=== PATIENT | male | born 1940 | race Caucasian/White ===

== ENCOUNTER → 2016-06-29 | Outpatient (CLI) | payer OTHER ==
[~2016-06-29] MED LIST: ACETAMINOPHEN PO; ACETAMINOPHEN500 M4 PO; ALBUTEROL17 GM INH; ALLEGRA PO; ALTOPREV20 MG PO; AMARYL PO; AMARYL1 MG PO; AMAZING BUTT CREAM TOP; AMBIEN PO; AMIODARONE HCL200 MG PO; AMLODIPINE BESYL5 MG PO; ANTARA PO; ASPIRIN PO; ASPIRIN81 M1 PO; ASPIRIN81 M2 PO; ASPIRIN81 MG PO; ATENOLOL PO; AVAPRO PO; AZOPT5 ML OS; BAYER ASPIRIN325 M1 PO; CLARITIN10 M2 PO; CLOPIDOGREL75 MG PO; COMBIGAN EYE DRO5 ML OU; COUMADIN PO; CRESTOR PO; DEMADEX10 MG PO; EDARBI80 MG PO; FINASTERIDE5 MG PO; FLEXERIL PO; FLOMAX0.4 M1 PO; FLOMAX0.4 MG PO; FOLIC ACID PO; FOLIC ACID1 MG PO; FOLIC ACID800 MCG PO; FUROSEMIDE40 MG PO; GLIMEPIRIDE1 M1 PO; GLIMEPIRIDE1 MG PO; HYDRALAZINE HCL50 MG PO; HYDROCODON-ACE1 EAC7 PO; HYDROCODON-ACE1 EAC9 PO; HYDROCODONE/APA1 T16 PO; HYZAAR 100-25 T1 TAB PO; IMDUR-ER60 M1 PO; ISORDIL PO; ISOSORBIDE DINI10 MG PO; LANSOPRAZOLE30 MG; LASIX PO; LATANOPROST2.5 ML OU; LESCOL XL80 MG PO; LEVAQUIN PO; LEVAQUIN750 MG PO; LIPITOR PO; LOPID600 MG PO; LOPRESSOR PO; LORTAB 7.5-3251 EACH PO; LOVASTATIN20 M1 PO; LOW DOSE ASPIRI81 M1 PO; LUMIGAN2.5 ML OU; METOPROLOL TAR100 MG PO; METOPROLOL TAR25 MG PO; MUCINEX DM ER1 EACH PO; NEPHROCAPS1 CAP; NITROGLYGERIN0.4 MG SL; NITROGYLCERIN SUBLINGUAL; NITROSTAT0.4 MG PO; NITROSTAT0.4 MG SL; NORVASC PO; NORVASC10 MG PO; ONGLYZA5 MG PO; PANTOPRAZOLE SO40 MG PO; PATIENT'S PHARMACY; PLAVIX PO; PROCRIT2000 U/ML; PROTONIX PO; SERTRALINE HCL50 M1 PO; SERTRALINE HCL50 MG PO; SINGULAIR PO; SUCRALFATE1 G/10 M1 PO; SYMBICORT INH; TIMOPTIC 0.5% OP5 M1 OU; TOPROL XL100 MG PO; TRAMADOL HCL50 M1 PO; TRAVOPROST OU; TRIGLIDE160 M1 PO; TRUSOPT5 ML OS; TYLENOL #2 PO; VITAMIN B-1000 MCG/1 IJ; VITAMIN B-1000 MCG/1 INJ; VITAMIN D1000 UNIT PO; ZOLOFT PO; ZOLOFT50 MG PO
--- NOTE | ~2016-06-29 | CT57 ---
[facility] A Service of [facility] & [facility] RADIOLOGY TEXT RESULTS PATIENT: NASH ALMEIDA LOCATION: [facility] : 38 UNIT #: [id number] AGE: [address]: Tricia Jacinto MD SEX: M ORDER DR: [id number] [facility] [address] [place], [place] [address] [id number] O MR#: [id number] Acc #: [id number] NAME: NASH ALMEIDA. : 1940 SEX: M STUDY DATE/TIME: 06/29/2016 9:43 UNIT: [facility] ROOM: STUDY DESCRIPTION: CT Chest Wo Cont Attending Physician: Tricia Jacinto M.D. Ordering Physician: Tricia Jacinto M.D. Primary Care Physician: Gina Townsend M.D. MEDICAL IMAGING REPORT This report is preliminary unless electronic signature is present EXAM CT chest without contrast 06/29/2016 INDICATIONS Malignant neoplasm of the bronchus. Lung cancer. Left lower lobe malignancy. Restaging. Observation for metastatic disease. COMPARISON PET/CT dated 01/28/[address] chest dated 01/21/2016. TECHNIQUE This CT exam was performed with one or more of the following radiation dose reduction techniques: automatic exposure control, adjustment of mA and/or kV according to patient size, and iterative reconstruction. FINDINGS The pleural nodularity in the right hemithorax has significantly improved. An index area of pleural thickening along the medial right hemithorax measures 2.4 x 1.2 cm compared to 4.9 x 2.6 cm. A pleural nodule previously measuring 1.7 x 1.1 cm on the posterior right hemithorax is no longer visualized. Bilateral pleural effusions have resolved. Patient is status post left lower lobectomy. Central airways are patent. No pathologically enlarged mediastinal or hilar lymph nodes. No pericardial effusion. Limited images of the upper abdomen were obtained. No new findings. There is minimal thickening of the right adrenal gland, however no discrete nodules. There are some benign cysts in the kidneys. IMPRESSION [facility] A Service of [facility] & [facility] RADIOLOGY TEXT RESULTS PATIENT: NASH ALMEIDA [id number] UNIT #: [id number] AGE: [address]: Tricia Jacinto MD SEX: M ORDER DR: 1. Partial response to therapy. Diffuse pleural thickening along the right hemithorax has significantly improved since the prior study. 2. Resolved bilateral pleural effusions. 3. No evidence disease progression. 4. Postsurgical change of left lower lobectomy. Dictated by... Richard Dougherty M.D. THIS IS AN ELECTRONICALLY VERIFIED REPORT Richard Dougherty M.D. at 06/30/2016 8:19 AM Judie TD: 06/29/2016 17:50 JOB #: [id number] MEDICAL IMAGING REPORT COPY
== END | disposition home or self-care (01) ==
LOC: CCAT 09:22
DX: C34.90 Malignant neoplasm of unspecified part of unspecified bronchus or lung (principal); D63.1 Anemia in chronic kidney disease; C79.52 Secondary malignant neoplasm of bone marrow; D50.9 Iron deficiency anemia, unspecified; Z87.19 Personal history of other diseases of the digestive system; Z98.890 Other specified postprocedural states
CPT/HCPCS: 71250

== ENCOUNTER → 2016-08-06 | Outpatient (CLI) | payer OTHER ==
--- NOTE | ~2016-08-06 | MR113 ---
[facility] A Service of [facility] & [facility] RADIOLOGY TEXT RESULTS PATIENT: NASH ALMEIDA LOCATION: [facility] : 38 UNIT #: [id number] AGE: [address]: Steevn Reich MD SEX: M ORDER DR: [id number] [place] [id number] O MR#: [id number] Acc #: [id number] NAME: NASH ALMEIDA : 1940 SEX: M STUDY DATE/TIME: 08/06/2016 10:21 UNIT: [facility] ROOM: STUDY DESCRIPTION: MR Lumbar Wo Contrast Attending Physician: Steven Reich M.D. Referring Physician: Steven Reich M.D. Ordering Physician: Steven Reich M.D. Primary Care Physician: Gina Townsend M.D. MRI CENTER REPORT This report is preliminary unless electronic signature is present. EXAM MRI of the lumbar spine without contrast. HISTORY Lung cancer treated 2 years ago with radiation therapy; now has complaint of increasing low back pain, left lower extremity radiculopathy, tingling and numbness of the left foot for a year. Patient had lumbar spine surgery either June 2015 or June 2016. The history is not clear. Please correlate further with actual clinical history. In either case lack of contrast media limits evaluation of postop spine. Contrast not given per requesting physician. There is a previous MRI from 10/18/2015. There is mild degenerative retrolisthesis of L5 on S1 measuring about 6 mm. This is related to loss of disc height at L5-S1 which is fairly severe, and the disc is desiccated. There is associated mixed marrow endplate degenerative changes. Otherwise, moderate loss of disc height, disc desiccation, and mixed marrow endplate degenerative change at the L4-L5 level. Multiple Schmorl nodes. Conus medullaris terminates at L1 and is normal. At L1-2, mild concentric disc bulge. Mild facet degenerative change, mild mass effect on the thecal sac. No foraminal impingement. At L2-3, mild bilateral facet degenerative change, broad-based posterior disc bulge. Mild effacement of the thecal sac. Mild mass effect on the right greater than left lateral recess. No significant foraminal impingement. At L3-4, mild ligamentum flavum thickening on the right with some mild bilateral facet degenerative change, mild broad-based posterior disc bulge. No canal stenosis. Mild bilateral inferior foraminal narrowing. At L4-5, mild to moderate right greater than left sided facet degenerative STS. [facility] A Service of [facility] RADIOLOGY TEXT RESULTS PATIENT: NASH ALMEIDA LOCATION: [facility] : 38 UNIT #: [id number] AGE: [address]: Steven Reich MD SEX: M ORDER DR: change mild concentric disc bulge, mild to moderate foraminal narrowing bilaterally. Mild canal stenosis and mass effect on right greater than left lateral recess. At L5-S1, I believe there are prior posterior surgery changes. There is bilateral facet degenerative change, moderate. There is a broad-based posterior desiccated disc protrusion and endplate spondylosis. There is some effacement of the anterior thecal sac, but no significant central canal stenosis. There is bilateral foraminal narrowing, which is rammosmh-ft-dwlits, related to disc osteophyte retrolisthesis of L5 on S1 and loss of disc height. Partly redemonstrated are renal cysts on the left. No evidence for arachnoiditis on this noncontrast study. IMPRESSION 1. Postoperative changes posteriorly at L5-S1. No recurrent extrusion or canal stenosis, but there is moderate to severe foraminal narrowing bilaterally. 2. Mild canal stenosis at the L4-5 level with mass effect on right greater than left lateral recess. Multilevel degenerative changes are detailed above. Please refer to the comment section. Dictated by... Claritza Kohler M.D. THIS IS AN ELECTRONICALLY VERIFIED REPORT Claritza Kohler M.D. at 08/07/2016 8:06 AM ANTHONY/avery TD: 08/06/2016 18:32 JOB #: [id number] MRI CENTER REPORT Page 1 of 1
== END | disposition home or self-care (01) ==
LOC: SMRI 09:23
DX: M48.06 Spinal stenosis, lumbar region (principal); M43.16 Spondylolisthesis, lumbar region; M51.86 Other intervertebral disc disorders, lumbar region; Z98.1 Arthrodesis status
CPT/HCPCS: 72148

== ENCOUNTER → 2016-08-10 | Outpatient (CLI) | payer OTHER ==
--- NOTE | ~2016-08-10 | US136 ---
[facility] A Service of [facility] RADIOLOGY TEXT RESULTS PATIENT: NASH ALMEIDA LOCATION: [facility] : 38 UNIT #: [id number] AGE: [address]: Andrea Yeboah MD SEX: M ORDER DR: [id number] [place] [id number] [facility]. [place], [place] [address] [id number] O MR#: [id number] Acc #: [id number] NAME: NASH ALMEIDA. : 1940 SEX: M STUDY DATE/TIME: 08/10/2016 10:33 UNIT: [facility] ROOM: STUDY DESCRIPTION: U/L [facility] Bil Attending Physician: Andrea Yeboah M.D. Referring Physician: Andrea Yeboah M.D. Ordering Physician: Andrea Yeboah M.D. Primary Care Physician: Gina Townsend M.D. MEDICAL IMAGING REPORT This report is preliminary unless electronic signature is present EXAM Ankle brachial indices HISTORY Peripheral vascular disease FINDINGS Pulse volume recordings are moderately abnormal at the ankle levels bilaterally. Doppler velocity wave forms are monophasic at the dorsalis pedis and posterior tibial arteries bilaterally. Right brachial pressure is 238 and left brachial pressure is 229 mmHg. On the right side dorsalis pedis is 175, posterior tibial 166, great toe 91 for a right ankle brachial index of 0.74. On the left side, posterior tibial and dorsalis pedis are noncompressible and hence, ankle brachial indices could not be performed. Great toe pressure is 128 mmHg for a toe brachial index of 0.54. IMPRESSION 1. Moderate peripheral vascular disease is seen in the right lower extremity with ankle brachial index of 0.74. 2. Non compressibility is seen at the left lower extremity indicating calcification and hence ankle brachial indices could not be calculated. Toe pressures are adequate. Wave forms indicate probably moderate peripheral vascular disease on the left side also. Clinical correlation is recommended. Dictated by... [facility] A Service of [facility] RADIOLOGY TEXT RESULTS PATIENT: NASH ALMEIDA LOCATION: [facility] : 38 UNIT #: [id number] AGE: [address]: Andrea Yeboah MD SEX: M ORDER DR: Andrea Yeboah M.D. THIS IS AN ELECTRONICALLY VERIFIED REPORT Andrea Yeboah M.D. at 08/18/2016 9:45 AM SA/to TD: 08/10/2016 17:08 JOB #: [id number] MEDICAL IMAGING REPORT Page 1 of 1 COPY
--- NOTE | ~2016-08-10 | US83 ---
[facility] A Service of [facility] & [facility] RADIOLOGY TEXT RESULTS PATIENT: NASH ALMEIDA LOCATION: [facility] : 38 UNIT #: [id number] AGE: [address]: Andrea Yeboah MD SEX: M ORDER DR: [id number] [facility] [address] [place], [place] [address] [id number] O MR#: [id number] Acc #: [id number] NAME: NASH ALMEIDA. : 1940 SEX: M STUDY DATE/TIME: 08/10/2016 11:12 UNIT: [facility] ROOM: STUDY DESCRIPTION: [employer] Attending Physician: Andrea Yeboah M.D. Referring Physician: Andrea Yeboah M.D. Ordering Physician: Andrea Yeboah M.D. Primary Care Physician: Gina Townsend M.D. MEDICAL IMAGING REPORT This report is preliminary unless electronic signature is present EXAM Right lower extremity arterial duplex. HISTORY Peripheral vascular disease. FINDINGS Duplex imaging of the right lower extremity arteries was performed. The right common femoral artery is patent with a velocity of 137 cm/sec and triphasic waveforms. There is increased velocity seen in the proximal superficial femoral artery at the origin with a velocity of 523 cm/sec. The profunda femora is patient. Velocity in the SFA is 84, distally it is 86, and popliteal artery has mild plaque with a velocity of 61 cm/sec. Runoff is seen in the posterior tibial artery at 38 cm/sec at the tibioperoneal trunk. The rest of the vessels to not appear to have been examined. IMPRESSION High-grade stenosis is seen in the proximal right superficial femoral artery. The rest of the SFA and popliteal artery is patent. Runoff is seen in the posterior tibial artery and the rest of the vessels have not been examined. Dictated by... Andrea Yeboah M.D. THIS IS AN ELECTRONICALLY VERIFIED REPORT Andrea Yeboah M.D. at 08/18/2016 9:45 AM /tmw [facility] A Service of [facility] & [facility] RADIOLOGY TEXT RESULTS PATIENT: NASH ALMEIDA LOCATION: [facility] : 38 UNIT #: [id number] AGE: [address]: Andrea Yeboah MD SEX: M ORDER DR: TD: 08/10/2016 17:08 JOB #: [id number] MEDICAL IMAGING REPORT Page 1 of 1 COPY
--- NOTE | ~2016-08-10 | US37 ---
[facility] A Service of [facility] RADIOLOGY TEXT RESULTS PATIENT: NASH ALMEIDA LOCATION: [facility] : 38 UNIT #: [id number] AGE: [address]: Andrea Yeboah MD SEX: M ORDER DR: [id number] [facility] [address] [place], [place] [address] [id number] O MR#: [id number] Acc #: [id number] NAME: NASH ALMEIDA. : 1940 SEX: M STUDY DATE/TIME: 08/10/2016 10:45 UNIT: [facility] ROOM: STUDY DESCRIPTION: US Carotid W/Doppler Bilateral Attending Physician: Andrea Yeboah M.D. Referring Physician: Andrea Yeboah M.D. Ordering Physician: Andrea Yeboah M.D. Primary Care Physician: Gina Townsend M.D. MEDICAL IMAGING REPORT This report is preliminary unless electronic signature is present EXAM Bilateral carotid duplex HISTORY Carotid stenosis FINDINGS Duplex imaging in the carotid arteries was performed. The right common carotid artery is patent. Plaque is seen in the right internal carotid artery origin and above, which is heterogeneous. Velocity in the right common carotid is 98, internal is 93 no active disease external is 133 cm/second. Right ICA:CCA ratio is 0.9. On the left side, common carotid artery is patent. Heterogeneous plaque is seen in the left internal carotid artery and external carotid arteries. Velocities are increased on the left side. Velocity in the left common carotid is 94; internal is 168 proximally, 193 mid portion and 147 distally. Left ICA:CCA ratio is 2.0. External carotid velocity is 308 cm/second. IMPRESSION 1. Plaque with less than 50% stenosis is seen in the right internal carotid artery. 2. Plaque with 50-69% stenosis is seen in the left internal carotid artery. 3. Significant stenosis is seen in the left external carotid artery. 4. Antegrade flow is seen in the right and left vertebral arteries. Dictated by... Andrea Yeboah M.D. [facility] A Service of [facility] & [facility] RADIOLOGY TEXT RESULTS PATIENT: NASH ALMEIDA LOCATION: [facility] : 38 UNIT #: [id number] AGE: [address]: Andrea Yeboah MD SEX: M ORDER DR: THIS IS AN ELECTRONICALLY VERIFIED REPORT Andrea Yeboah M.D. at 08/18/2016 9:45 AM SA/lenard TD: 08/10/2016 17:26 JOB #: [id number] MEDICAL IMAGING REPORT Page 1 of 1 COPY
== END | disposition home or self-care (01) ==
LOC: CNIV 10:17
DX: C79.52 Secondary malignant neoplasm of bone marrow (principal); C34.90 Malignant neoplasm of unspecified part of unspecified bronchus or lung; I65.23 Occlusion and stenosis of bilateral carotid arteries; I70.208 Unspecified atherosclerosis of native arteries of extremities, other extremity; I73.9 Peripheral vascular disease, unspecified; D50.9 Iron deficiency anemia, unspecified; Z87.19 Personal history of other diseases of the digestive system
CPT/HCPCS: 93880; 93922; 93926

== ENCOUNTER 2016-09-27 09:59 | Emergency (ER) | payer OTHER ==
--- NOTE | ~2016-09-27 | CR72 ---
[facility] A Service of [facility] RADIOLOGY TEXT RESULTS PATIENT: NASH ALMEIDA LOCATION: [facility] : 38 UNIT #: [id number] AGE: [address]: Shivam Haley MD SEX: M ORDER DR: [id number] [facility] [address] [place], [place] [address] [id number] E MR#: [id number] Acc #: [id number] NAME: NASH ALMEIDA. : 1940 SEX: M STUDY DATE/TIME: 09/27/2016 10:52 UNIT: [facility] ROOM: STUDY DESCRIPTION: CR Chest Single View Portable Attending Physician: Shivam Haley M.D. Ordering Physician: Shivam Haley M.D. Primary Care Physician: Gina Townsend M.D. MEDICAL IMAGING REPORT This report is preliminary unless electronic signature is present EXAM Portable chest, 09/27 INDICATIONS Shortness of air today. COMPARISON 01/22/16 FINDINGS A portable view of the chest was obtained. Heart size is slightly enlarged. The vascularity is normal. Hazy appearance to the left cardiac border is unchanged from the previous study. It is difficult to see the left hemidiaphragm. IMPRESSION 1. There is no definite infiltrate visible. The left hemidiaphragm is somewhat difficult to visualize on this portable chest x-ray. The heart is mildly enlarged. Dictated by... Stanley Suarez M.D. THIS IS AN ELECTRONICALLY VERIFIED REPORT Stanley Suarez M.D. at 09/28/2016 7:27 AM FEL/psc TD: 09/27/2016 18:37 JOB #: [id number] MEDICAL IMAGING REPORT [facility] A Service of [facility] RADIOLOGY TEXT RESULTS PATIENT: NASH ALMEIDA LOCATION: [facility] : 38 UNIT #: [id number] AGE: [address]: Shivam Haley MD SEX: M ORDER DR: Page 1 of 1 COPY
--- NOTE | ~2016-09-27 | EKG ---
PATIENT: NASH ALMEIDA UNIT #: [id number] Ventricular Rate: 55 BPM Atrial Rate: 55 BPM P-R Interval: 222 ms QRS Duration: 92 ms Q-T Interval: 446 ms QTC Calculation(Bezet): 426 ms P Cisco: 41 degrees Calculated R Cisco: 30 degrees Calculated T Cisco: 175 degrees Diagnosis Line: Sinus bradycardia with 1st degree A-V block Diagnosis Line: Poor R wave progression questionable lead position Diagnosis Line: or body habitus Diagnosis Line: ST and T wave abnormality, consider inferolateral Diagnosis Line: ischemia Diagnosis Line: Abnormal ECG Diagnosis Line: When compared with ECG of 22-JAN-2016 05:32, Diagnosis Line: T wave inversion now evident in Inferior leads Diagnosis Line: Confirmed by KHAI HERNANDEZ MD ([id number]) on Diagnosis Line: 09/27/2016 10:19:53 PM INTERPRETING MD: DWIGHT
[~2016-09-27 09:59] MED LIST changes: -ALBUTEROL17 GM INH; -ALTOPREV20 MG PO; -AMAZING BUTT CREAM TOP; -AMIODARONE HCL200 MG PO; -AVAPRO PO; -EDARBI80 MG PO; -FOLIC ACID PO; -HYDRALAZINE HCL50 MG PO; -HYDROCODON-ACE1 EAC7 PO; -IMDUR-ER60 M1 PO; -LATANOPROST2.5 ML OU; -LEVAQUIN750 MG PO; -LORTAB 7.5-3251 EACH PO; -LOW DOSE ASPIRI81 M1 PO; -NITROSTAT0.4 MG PO; -NORVASC10 MG PO; -PATIENT'S PHARMACY; -SERTRALINE HCL50 MG PO; -SYMBICORT INH; -TIMOPTIC 0.5% OP5 M1 OU; -TRIGLIDE160 M1 PO; -VITAMIN D1000 UNIT PO
[2016-09-27 10:55] LABS: BASOPHIL# 0.1 X10e3 (0-0.3); BASOPHIL% 0.7 % (0-2.5); EOSINOPHIL# 0.2 X10e3 (0-0.7); HEMOGLOBIN 10.5 gm/dL (13.0-16.0); LYMPHOCYTE# 0.6 X10e3 (1.0-3.5); LYMPHOCYTE% 6.1 % (17.0-45.0); MEAN CELL VOLUME 78.5 FL (83-96); MEAN CORPUSCULAR HEMOGLOBIN 25.8 PG (28-34); MEAN CORPUSCULAR HGB CONC 32.9 g/dL (30-36); MEAN PLATELET VOLUME 9.1 FL (6.5-11.5); MONOCYTE# 0.7 X10e3 (0-1.0); MONOCYTE% 7.1 % (3.0-12.0); NEUTROPHIL# 8.5 X10e3 (1.5-7.1); NEUTROPHIL% 84.1 % (40-75); PLATELET COUNT 204 X10e3 (140-420); RED BLOOD COUNT 4.08 X10e (3.90-5.60); RED CELL DISTRIBUTION WIDTH 17.9 % (11.0-15.5); WHITE BLOOD COUNT 10.1 X10e3 (4.0-10.5)
[2016-09-27 10:56] LABS: DIFF IND NO
[2016-09-27 10:58] LABS: POC - CKMB 1.1 ng/mL (0.0-7.9); POC - TROPONIN <0.05 ng/mL (<=0.05)
[2016-09-27 11:14] LABS: ALBUMIN SERUM 3.2 g/dL (3.5-5.0); BILIRUBIN, DIRECT 0.1 mg/dL (0.0-0.2); BILIRUBIN,INDIRECT 0.7 mg/dL (0.0-0.9); BILIRUBIN,TOTAL 0.8 mg/dL (0.2-2.0); BUN/CREATININE RATIO 13.68; CALCIUM SERUM 8.8 mg/dL (8.4-10.2); CREATININE SERUM 1.9 mg/dL (0.6-1.4); GLOM FILT RATE Estimated 33.3 mL/min (>60); POTASSIUM 4.4 mmol/L (3.5-5.1); PROTEIN TOTAL SERUM 6.7 g/dL (6.0-8.3)
[2016-09-27] MEDS ORDERED: LORTAB 7.5-3251 EACH PO (11:16)
[2016-09-27] MEDS ORDERED: LATANOPROST2.5 ML OU (11:18)
[2016-09-27] MEDS ORDERED: EDARBI80 MG PO (11:19)
[2016-09-27] MEDS ORDERED: FUROSEMIDE40 MG PO (11:20)
[2016-09-27] MEDS ORDERED: FOLIC ACID PO (11:20)
[2016-09-27] MEDS ORDERED: NORVASC10 MG PO (11:21)
[2016-09-27] MEDS ORDERED: METOPROLOL TAR25 MG PO (11:21)
[2016-09-27] MEDS ORDERED: SERTRALINE HCL50 MG PO (11:22)
[2016-09-27] MEDS ORDERED: AMARYL1 MG PO (11:22)
[2016-09-27] MEDS ORDERED: LOVASTATIN20 M1 PO (11:22)
[2016-09-27] MEDS ORDERED: LOW DOSE ASPIRI81 M1 PO (11:22)
[2016-09-27] MEDS ORDERED: CLOPIDOGREL75 MG PO (11:23)
[2016-09-27] MEDS ORDERED: ONGLYZA5 MG PO (11:23)
[2016-09-27] MEDS ORDERED: PROTONIX PO (11:23)
== END 2016-09-27 11:52 | disposition home or self-care (01) ==
LOC: CED 09:59
PROVIDERS: Emergency Medicine
DX: I13.0 Hypertensive heart and chronic kidney disease with heart failure and stage 1 through stage 4 chronic kidney disease, or unspecified chronic kidney disease (principal); I50.9 Heart failure, unspecified; N18.9 Chronic kidney disease, unspecified; E11.22 Type 2 diabetes mellitus with diabetic chronic kidney disease; E78.5 Hyperlipidemia, unspecified; K21.9 Gastro-esophageal reflux disease without esophagitis; Z90.49 Acquired absence of other specified parts of digestive tract; Z95.1 Presence of aortocoronary bypass graft; Z88.5 Allergy status to narcotic agent
CPT/HCPCS: 36415; 71010; 80048; 80076; 82553; 83880; 84484; 85025; 93005; 96374; 99284; J1940

== ENCOUNTER 2016-10-05 12:56 | Inpatient (IN) | payer OTHER ==
--- NOTE | ~2016-10-05 | CO ---
Unit #: [id number] #: [id number] Patient: NASH MORATAYA [id number] [address] [place], [place] [address] [id number] MR#: [id number] NAME: NASH MORATAYA ROOM: 471 Age: 75 Sex: M Admission Date: 10/05/2016 : 1940 Attending Physician: Kalpana Boone M.D. Primary Care Physician: Gina Townsend M.D. CONSULTATION REPORT CHIEF COMPLAINT Non-small cell lung cancer, right lower lobe lobectomy, recurrent disease, SVRT, no sign of disease, recurrent GI bleed, anemia, CKD, CHF, COPD. HISTORY OF PRESENT ILLNESS Nash Morataya is a 75-year-old male who was diagnosed with lung cancer during 1995. The patient had a right lower lobe lobectomy. Recently, CT of the chest showed 1.6 cm mass close to the esophagus. It increased in size. PET was positive. He received palliative radiation. The patient has had multiple imaging studies and CT of the chest. There is some scar at the azygo-esophagus recess. (1) stable. He has some pleural-based lesions and all stable. No malignancy. The patient has a chronic anemia. He has a CKD. He has been receiving intravenous iron, folic acid, B12 regularly. Last week, his hemoglobin was 11. He is taking aspirin and Plavix. He developed GI bleed for several days. He ignored. Finally, he called me short of breath. He has dyspnea on exertion, decline in performance status, worsening clinical condition. In the hospital, his CBC showed WBC 9.1, hemoglobin 8.1, MCV 80 and platelets 188. His creatinine has increased to 2.0. LFTs are normal. At present, he is short of breath. REVIEW OF SYSTEMS CONSTITUTIONAL: No fever, no chills, no sweats, no weight loss. EYES: No visual symptoms. EARS, NOSE AND THROAT: There is no runny nose or sore throat or difficulty hearing. CARDIOVASCULAR: No chest pain. Shortness of breath. No palpitations. No orthopnea. Dyspnea on exertion. RESPIRATORY: No cough. No wheezing. No hemoptysis. GASTROINTESTINAL: No nausea, vomiting, diarrhea, constipation, hematochezia or melena. GI bleed. GENITOURINARY: No urinary frequency, hesitancy or urgency. No blood in the urine. MUSCULOSKELETAL: No muscle or joint pain. NEUROLOGIC: No headache. No numbness or tingling. No weakness. No seizure. PSYCHIATRIC: No anxiety, depression or mood disturbance. ENDOCRINE: No excessive urination or thirst. DERMATOLOGIC: No rash or change in the skin. Unit #: [id number] #: [id number] Patient: NASH MORATAYA ALLERGIC/IMMUNOLOGIC: No symptoms. HEMATOLOGIC/LYMPHATIC: Denies any symptoms. PAST MEDICAL HISTORY 1. Recurrent non-small cell lung cancer: First lobectomy, now SVRT. No sign of disease. 2. Coronary artery disease. 3. Anemia. 4. Chronic obstructive pulmonary disease. 5. Chronic kidney disease. 6. Congestive heart failure. 7. Diabetes. 8. Hypertension. ALLERGIES Morphine and IV contrast. SOCIAL He used to smoke one pack per day for 20 years, quit many years ago. Denies alcohol abuse. 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 SURGICAL HISTORY 1. CABG. 2. Resection of the left lower lobe mass. 3. Resection of the DVT in the left lower extremity. FAMILY HISTORY Sister - leukemia. Brother - also has leukemia. MEDICATIONS His current medications include: 1. Lipitor. 2. Protonix. 3. Lopressor. 4. Lortab. 5. Zoloft. 6. Lasix. PHYSICAL EXAMINATION VITAL SIGNS: Afebrile. Pulse 57, respirations 16, O2 sats on 4 L 94%, blood pressure 152/54. GENERAL: Patient is comfortable. ECOG is 0. The patient is pleasant. HEENT: Moist mucosa. Pupils equally reactive to light. Extraocular muscles intact. Sclerae anicteric. No obvious bleeding from nasal mucosa or oral mucosa. Scalp normal. Hearing normal. NECK: No JVD. No lymphadenopathy. LYMPHATIC/HEMATOLOGIC: There is no palpable adenopathy in the neck, axilla or inguinal area. CARDIOVASCULAR: S1, S2. Regular rate and rhythm. No S3 or S4. RESPIRATORY: Chest symmetrical, normal. Clear to auscultation bilaterally. No wheezes, no rales, no rhonchi. No dullness to percussion. ABDOMEN/GASTROINTESTINAL: Abdomen is soft, nontender, nondistended. No hepatosplenomegaly. EXTREMITIES: There is no clubbing, no cyanosis, no edema. No varicose veins. NEUROLOGICAL: Patient is alert, awake and oriented x3. Cranial nerves II-XII are intact. Sensory grossly intact. Motor is 4/5 in all four extremities. Gait is normal. Station is normal. Language is normal. Unit #: [id number] #: [id number] Patient: NASH MORATAYA Memory is normal. DTRs +2 in all four extremities. MUSCULOSKELETAL: No joint swelling. No bony tenderness. No muscle tenderness. SKIN: No petechiae, no rash, no ecchymosis. PSYCHIATRIC: No anxiety. No delusions or hallucinations. There is no agitation. Eye contact is normal. Affect is appropriate. There is no flight of ideas. DIAGNOSTIC STUDIES LABORATORY: As mentioned above. IMAGING: Chest x-ray - no change, no mass, no infiltrates. ASSESSMENT AND PLAN This is a 75-year-old male who has the following active issues: 1. Lung cancer: Patient had resection. Patient has recurrent disease, atrial fibrillation, SVRT, at present no sign of disease. In future, I will do CT of the chest without contrast. 2. Anemia: It is complex. He had a chronic kidney disease. He has recurrent GI bleed. His bleeding is worsening. He was admitted. I will give him intravenous iron, folic acid, B12. Tomorrow, I will give him Procrit to stimulate the bone marrow. 3. GI: He is bleeding and going for colonoscopy. 4. Cardiovascular: He has a history of coronary artery bypass graft, he has coronary artery disease. At present, it is stable. 5. Respiration: He has chronic obstructive pulmonary disease and 2 L of oxygen. Stable. 6. Renal: His kidney function has worsened. Dr. Watts to see. Dictated by... Tricia Jacinto M.D. TOMMY/ciera TD: 10/06/2016 12:08 JOB #: [id number] CONSULTATION REPORT Page 1 of 1 X Tricia Jacinto MD CONSULTATION REPORT
--- NOTE | ~2016-10-05 | CR63 ---
[facility] A Service of [facility] & [facility] RADIOLOGY TEXT RESULTS PATIENT: NASH ALMEIDA LOCATION: [place] [address] : 38 UNIT #: [id number] AGE: [address]: Kalpana Boone MD SEX: M ORDER DR: [id number] [facility] [address] [place], [place] [address] [id number] I MR#: [id number] Acc #: [id number] NAME: NASH ALMEIDA : 1940 SEX: M STUDY DATE/TIME: 10/09/2016 11:38 UNIT: [facility] ROOM: [facility] STUDY DESCRIPTION: CR Chest 2 View Attending Physician: Kalpana Boone M.D. Ordering Physician: Kalpana Boone M.D. Primary Care Physician: Gina Townsend M.D. MEDICAL IMAGING REPORT This report is preliminary unless electronic signature is present EXAM Chest 2 views 10/09/2016 1138 hours HISTORY 75-year-old man with shortness of air, anemia. Symptoms for 2 weeks. COMPARISON Chest x-ray 10/07/2016 FINDINGS Upright PA and lateral views of the chest demonstrate median sternotomy change with stable mild cardiomegaly. There is left thoracotomy change with hyperinflated left lung. The left lung appears clear. There is blunting of the left costophrenic sulcus which is unchanged. There is new or increasing patchy density in the right midlung, right lung base, since 10/07/2016. This could represent pneumonia or asymmetric edema. Stable pleural thickening in the lower right hemithorax. IMPRESSION Postop changes with clear left lung and chronic blunting of the left costophrenic sulcus. There is new airspace density at the right lung base since 10/07/2016, concerning for pneumonia. There is chronic pleural thickening laterally in the right hemithorax. No definite right effusion. STAT * RESULT Dictated by... Maggie Nicole M.D. THIS IS AN ELECTRONICALLY VERIFIED REPORT Maggie Nicole M.D. at 10/09/2016 4:01 PM [facility] A Service of [facility] & [facility] RADIOLOGY TEXT RESULTS PATIENT: NASH ALMEIDA LOCATION: [place] [address] : 38 UNIT #: [id number] AGE: [address]: Kalpana Boone MD SEX: M ORDER DR: Almita TD: 10/09/2016 12:24 JOB #: [id number] MEDICAL IMAGING REPORT Page 1 of 1 COPY
--- NOTE | ~2016-10-05 | CR63 ---
[facility] A Service of [facility] & [facility] RADIOLOGY TEXT RESULTS PATIENT: NASH ALMEIDA LOCATION: [place] [address] : 38 UNIT #: [id number] AGE: [address]: Kalpana Boone MD SEX: M ORDER DR: [id number] [place] [address] [facility]. [place], [place] [address] [id number] I MR#: [id number] Acc #: [id number] NAME: NASH ALMEIDA. : 1940 SEX: M STUDY DATE/TIME: 10/10/2016 8:47 UNIT: [facility] ROOM: [facility] STUDY DESCRIPTION: CR Chest 2 View Attending Physician: Kalpana Boone M.D. Ordering Physician: Zach Tavera M.D. Primary Care Physician: Gina Townsend M.D. MEDICAL IMAGING REPORT This report is preliminary unless electronic signature is present EXAM PA and lateral chest INDICATIONS Followup pneumonia. Shortness of breath since October 05. COMPARISON STUDIES Compared with yesterday. FINDINGS Accounting for differences in positioning, there appears to be no significant change in appearance of the chest. The hazy densities in the mid- and lower zones are not significantly changed. Heart size is stable. Prior sternotomy. IMPRESSION No significant change in appearance of the chest. Dictated by... Tony Peterson M.D. THIS IS AN ELECTRONICALLY VERIFIED REPORT Tony Peterson M.D. at 10/11/2016 10:30 AM JUNE/angel TD: 10/10/2016 11:53 JOB #: [id number] MEDICAL IMAGING REPORT Page 1 of 1 COPY
--- NOTE | ~2016-10-05 | OR ---
Unit #: [id number] #: [id number] Patient: NASH ALMEIDA [id number] [address] [place], [place] [address] [id number] I MR#: [id number] NAME: NASH ALMEIDA ROOM: 471 Date of Procedure: 10/06/2016 Admission Date: 10/05/2016 Surgeon: Arturo Cr M.D. : 1940 Attending Physician: Kalpana Boone M.D. Primary Care Physician: Gina Townsend M.D. OPERATIVE REPORT PRIMARY CARE PHYSICIAN Gina Townsend M.D. PREOPERATIVE DIAGNOSES Upper gastrointestinal bleed. The patient presented with history of melena and anemia of acute gastrointestinal blood loss. PROCEDURES PERFORMED Upper gastrointestinal endoscopy and biopsy. POSTOPERATIVE DIAGNOSES 1. The patient had evidence of hiatus hernia. 2. 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 3. Moderate prepyloric antral diffuse gastritis. This was in the form of linear erosions and erythema in the antral area. 4. Rest of examination up to third part of duodenum was normal. A biopsy was obtained from the antrum for CLOtest. RECOMMENDATIONS The patient does not have any potential source of blood loss in the upper GI tract. A colonoscopy is warranted to be scheduled in the next day or two. SEDATION USED Procedural sedation. A total of 2.5 mg of Versed was used throughout the procedure. DESCRIPTION OF PROCEDURE Following detailed explanation of potential risks and complications of an upper endoscopy, namely perforation, bleeding, and complications related to sedation, the patient was brought to GI lab and laid in the left lateral decubitus position. Lubricated tip of the Olympus video upper endoscope was passed through the bite block into the proximal esophagus under direct vision. The entire esophageal mucosa was examined. 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 The scope was then advanced into the gastric cavity. The latter was insufflated. Mucosa of the fundus, body, and antrum examined and moderate diffuse prepyloric antral gastritis noted in the form of diffuse erythema, linear erythematous streaks and erosions. Pylorus was intubated with visualization of the normal duodenal bulb and second and third part of the Unit #: [id number] #: [id number] Patient: NASH ALMEIDA duodenum. Upon withdrawal and retroflexion, incisura, cardia, and greater curve examined and biopsy was obtained from the antrum for CLOtest. The scope was then withdrawn in the distal esophagus. The entire esophageal mucosa was examined all the way up to pharynx. No additional findings noted. The patient tolerated the procedure without any postprocedure complications. Dictated by... Leanne Jarrett/mirella TD: 10/06/2016 22:42 JOB #: [id number] OPERATIVE REPORT Page 1 of 1 X Arturo Cr MD X PROCEDURE OPERATIVE NOTE
--- NOTE | ~2016-10-05 | HP ---
Unit #: [id number] #: [id number] Patient: NASH ALMEIDA [id number] [address] [place], [place] [address] [id number] I MR#: [id number] NAME: NASH ALMEIDA. ROOM: 637[address] Age: 75 Sex: M Admission Date: 10/05/2016 : 1940 Attending Physician: Sarita Harp M.D. Primary Care Physician: Gina Townsend M.D. HISTORY AND PHYSICAL CHIEF COMPLAINT Shortness of breath. HISTORY OF PRESENT ILLNESS The patient is a 75-year-old male with a history of coronary artery disease, diabetes, brought to the emergency room complaining of the shortness of breath. The patient was seen at the PCP's office and was found to have a shortness of breath associated with the drop in hemoglobin. The patient's hemoglobin was 11.1 on last Wednesday and is down to 9.1 at the PCP's office. The patient also complains of the black-colored stools associated with the shortness of breath. The patient is on aspirin and Plavix for coronary artery disease. The patient follows with Dr. Jacinto for non-small cell lung cancer. It was resected in 1994 with recurrent disease in the right lower lobe measuring 1.6 cm, status post , now has a possible recurrent disease. The patient is being admitted for the above reasons. The patient is positive for the fecal occult blood test. PAST MEDICAL HISTORY History of non-small cell lung cancer, coronary artery disease, diabetes, hyperlipidemia, hypertension, history of esophageal ulcer and hiatal hernia. Last EGD was in August of 2015, revealed short segment of Best esophagus and mild gastritis. Chronic iron deficiency anemia, Peripheral vascular disease. PAST SURGICAL HISTORY Status post aorto-fem/pop bypass, cholecystectomy, inguinal hernia repair, glaucoma. ALLERGIES 1. Iodine. 2. Morphine makes the patient mean. HOME MEDICATIONS He is on Lortab, latanoprost, , furosemide, folic acid, Norvasc, metoprolol, Amaryl, low dose aspirin, lovastatin, sertraline, Plavix, Protonix, Onglyza. FAMILY HISTORY Positive for coronary artery disease. SOCIAL HISTORY The patient lives with his spouse, stopped smoking in , does not drink Unit #: [id number] #: [id number] Patient: NASH ALMEIDA alcohol. REVIEW OF SYMPTOMS Fourteen-point review of symptoms performed and only pertinent positive findings as described above, remaining are negative. PHYSICAL EXAMINATION GENERAL APPEARANCE: On examination the patient is lying on a bed not in acute distress. VITAL SIGNS: Temperature is 97.7, pulse 53, respiratory rate 18, blood pressure 175/46, sating 100% at room air. HEENT: Head atraumatic, normocephalic. Pupils equal, round and reacting to light and accommodation. Positive for pallor. No icterus. Dry mucous membrane. NECK: Supple. LUNGS: Decreased air entry. HEART: Regular rate and rhythm. Positive for systolic murmur. ABDOMEN: Soft. Positive bowel sounds. EXTREMITIES: No cyanosis. No clubbing. NEUROLOGIC: Awake, alert and oriented. No gross focal motor deficit. DIAGNOSTIC STUDIES LABORATORY DATA: Troponin less than 0.05. Sodium 141, potassium 4.5, chloride 107, bicarb 26, glucose 140, BUN 33, creatinine 2, BNP 493, INR is 1, WBC 8.4, hemoglobin 8.9, hematocrit 27.6, platelets 211. IMAGING: Chest x-ray shows status post mediastinotomy and CABG. The heart shows stable mild enlargement. The lungs are moderately well inflated. Mild vascular prominence. There is no compelling evidence of acute superimposed infection or inflammatory disease. CARDIOVASCULAR: The EKG shows bradycardia at a rate of 55 beats per minute and a QTc of 430 and there are new T-wave inversions in the lateral leads, V4, V5, V6 compared to the old EKG. ASSESSMENT 1. Gastrointestinal bleed. 2. Anemia. 3. Bradycardia with the T-wave inversions. PLAN Plan to admit the patient as an observation to telemetry. Will have a GI eval with Dr. Cr, continue with the Protonix 40 mg IV and will have the Cardiology for the T-wave inversions in the lateral leads to rule out ischemia with the serial troponins and repeat the labs again in the morning and hold the aspirin and Plavix and further recommendations will follow. Dictated by Leanne Pop TD: 10/05/2016 18:19 Unit #: [id number] #: [id number] Patient: NASH ALMEIDA JOB #: [id number] HISTORY AND PHYSICAL Page 1 of 1 X SARITA HARP MD HISTORY AND PHYSICAL
--- NOTE | ~2016-10-05 | CO ---
Unit #: [id number] #: [id number] Patient: NASH MORATAYA [id number] [address] [place], [place] [address] [id number] I MR#: [id number] NAME: NASH MORATAYA ROOM: 471 Age: 75 Sex: M Admission Date: 10/05/2016 : 1940 Attending Physician: Kalpana Boone M.D. Primary Care Physician: Gina Townsend M.D. CONSULTATION REPORT REASON FOR CONSULTATION Renal insufficiency. Thank you very much for asking me to see this patient in consultation. HISTORY OF PRESENT ILLNESS Mr. Morataya is a 75-year-old gentleman, who presented to the hospital yesterday with complaints of increased shortness of breath. He was apparently noted to have decreasing hemoglobin from his primary physician, was sent here and was noted to have heme-positive stools and hemoglobin down to 8.1 today. He is supposed to undergo an EGD as well today. The patient was noted reviewing his records upon admission to have creatinine of 2.0 today which was also 2.0 yesterday, on 09/27/2016 it was 1.9, on 12/27/2015 his creatinine ranged between 1.6 to 1.8, and in 2014, 1.0 to 1.5. The patient states that he has never been told he had any kidney problems and never seen a university internship. The patient was started on Edarbi approximately 1 month ago by Cardiology, although has now been stopped since he presented here. He has also had some intermittent problems with his blood pressure. Besides the shortness of breath, he denies any chest pain. He denies any nausea or vomiting. He denies any urinary symptoms. PAST MEDICAL HISTORY History of atherosclerotic coronary artery disease, status post coronary artery bypass graft, status post stents; history of diabetes mellitus x20+ years; history of lung CA non-small cell, status post left lobectomy in 1985, he had recurrent disease in his right side small lesion apparently has undergone XRT for this; he has a history of hyperlipidemia; history of hypertension x30 some years; history of esophageal ulcers; history of Best esophagitis; history of gastritis; history of peripheral vascular disease, status post aortofemoral bypass in the past. MEDICATIONS Included at home, Edarbi which has been stopped, Plavix and aspirin which are on hold, he is on Norvasc 10 mg b.i.d., metoprolol 25 mg b.i.d., fish oil, Lipitor, Protonix, Lortab, Onglyza 5 mg a day, Zoloft 50 mg a day, and Lasix 40 mg a day. ALLERGIES He is allergic to iodine and morphine. SOCIAL HISTORY He is . Previous smoker, stopped in 1983. No alcohol. Unit #: [id number] #: [id number] Patient: NASH MORATAYA FAMILY HISTORY Noncontributory. REVIEW OF SYSTEMS He denies any fevers, chills, visual problems, sinus problems, cough, hemoptysis, sore throat, difficulty swallowing. No neck pain or neck stiffness. Denies any chest pain, chest heaviness, palpitations. Does have an increased shortness of breath. He denies any abdominal pain, nausea, vomiting, or diarrhea. Denies urinary symptoms of starting or stopping burning. He denies any significant lower extremity swelling. Denies any recent seizures or strokes. PHYSICAL EXAMINATION GENERAL: He is alert and oriented. VITAL SIGNS: Temperature is 98.5, pulse 55 to 72, blood pressure 123 to 200 over 50s to 60s. HEENT: He is normocephalic and atraumatic. His pupils are equal, round, and reactive to light. Extraocular muscles are intact. Hearing appears normal. Mouth is clear. No erythema. No exudate. NECK: Supple. No JVD. CARDIAC: Regular rate and rhythm without a rub. No S3 or S4. LUNGS: Clear bilaterally. No wheezes, rhonchi, or rales. ABDOMEN: Bowel sounds positive. Nontender. Soft. EXTREMITIES: He has no edema, clubbing, or cyanosis. NEURO: Appears to be intact motor and sensory grossly. : Deferred. DIAGNOSTIC STUDIES LABORATORY RESULTS: Shows sodium 141, potassium 4.6, chloride is 109, bicarb is 25, BUN and creatinine 32 and 2.0, glucose 158, calcium is 8.3, albumin is 2.9. BNP is 493. Previous creatinine is as mentioned above. His hemoglobin is down to 8.1, . IMAGING STUDIES: Chest x-ray shows some questionable mild increased vascular prominence. ASSESSMENT AND PLAN Renal insufficiency. This is a gentleman who probably has some chronic kidney disease, stage 3 and looking back to his creatinines over the last 2 years. Possibly could be related to diabetes versus hypertension versus vascular disease versus other. I do not have any urine on him. I would like to check UA culture and sensitivity. Check a random urine protein and creatinine to see if he has any active significant proteinuria or hematuria. I would like to check renal ultrasound to look the size of his kidneys, rule out obstruction. Check renal artery duplex scan to make sure he does not have bilateral renovascular disease. I agree with holding his Edarbi for now. We will also hold his Lasix for now. I was originally going to give him some fluid, but he is getting blood and I will hold off on giving any IV fluids. Again, we will hold his Lasix, Edarbi, and again workup is underway for his gastrointestinal bleeding. We will check serum protein immunofixation as well. Depending on what the initial evaluation shows depending on what further workup and treatment. Dictated by.Sung Horne M.D. MONISHA/mirella Unit #: [id number] #: [id number] Patient: NASH MORATAYA TD: 10/07/2016 23:36 JOB #: [id number] CONSULTATION REPORT Page 1 of 1 X Cindy Horne MD X CONSULTATION REPORT
--- NOTE | ~2016-10-05 | DS ---
Unit #: [id number] #: [id number] Patient: NASH ALMEIDA [id number] [address] [address] [id number] I MR#: [id number] NAME: NASH ALMEIDA ROOM: 471 Age: 75 Sex: M Admission Date: 10/05/2016 : 1940 Discharge Date: Attending Physician: Kalpana Boone M.D. Primary Care Physician: Gina Townsend M.D. DISCHARGE SUMMARY DISCHARGE DIAGNOSES 1. Gastrointestinal bleed status post esophagogastroduodenoscopy which shows hiatal hernia, Best esophagus, moderate prepyloric antral diffuse gastritis. 2. Anemia secondary to acute blood loss, also with chronic iron deficiency anemia, likely from chronic kidney disease also. 3. Acute kidney injury with chronic kidney disease stage 3. 4. Shortness of breath likely chronic obstructive pulmonary disease with exacerbation. 5. Obstruction sleep apnea, noncompliant with CPAP machine. 6. Hypertension, uncontrolled. 7. History of lung cancer following Dr. Jacinto. 8. Abnormal electrocardiogram. The patient was seen by Cardiology. They recommend followup. No workup needed. 9. Diabetes mellitus type 2, uncontrolled. 10. Hyperlipidemia. 11. Peripheral arterial disease status post aortofemoral-popliteal bypass. 12. Bilateral carotid stenosis. 13. Nonsmall-cell lung cancer status post resection and radiation therapy. 14. History of glaucoma. 15. Peptic ulcer disease. 16. Former smoker. 17. Moderate protein malnutrition. CONSULTATIONS 1. Dr. Yates. 2. Dr. Tavera. 3. Dr. Horne. 4. Dr. Arturo Cr. 5. Dr. Jacinto. PROCEDURE The patient had EGD which shows evidence of hiatal hernia, presence of Best esophagus, moderate prepyloric, antral diffuse gastritis. DIAGNOSTIC STUDIES LABORATORY: Glucose 162, sodium 137, potassium 4.1, creatinine 2.0, albumin 2.5. WBC 9.0, hemoglobin 9.0, platelets 204. IMAGING: Chest x-ray, two views, shows relatively mild interstitial edema. No airspace disease. Ultrasound of the kidney shows no hydronephrosis. Unit #: [id number] #: [id number] Patient: ELLE,NASH T ALLERGIES 1. Iron. 2. Morphine. DISCHARGE MEDICATIONS 1. Zoloft 50 mg p.o. daily. 2. Norvasc 10 mg p.o. daily. 3. Metoprolol 25 mg p.o. b.i.d. 4. Lasix 40 mg p.o. b.i.d. 5. Xalatan eye drops at bedtime. 6. Lovastatin 20 mg daily. 7. Hydralazine 50 mg p.o. b.i.d. 8. Aspirin 81 mg daily. 9. Plavix 75 mg daily. 10. Lortab 7.5 mg q.6 p.r.n. moderate pain. 11. Protonix 40 mg p.o. b.i.d. 12. Amaryl 1 mg p.o. four times daily. 13. Folic acid 400 mcg p.o. daily. 14. Onglyza 5 mg p.o. daily. 15. Albuterol MDI two puffs inhalation four times daily p.r.n. 16. Symbicort 160 mcg inhalation b.i.d. two puffs. HOSPITALIZATION COURSE A 75-year-old admitted because of shortness of breath. Shortness of breath, likely from COPD, mild with exacerbation, started on DuoNeb and Dulera, currently breathing better but want to rule out PE. V/Q scan has been ordered, pending at the time of dictation. If V/Q scan is negative, patient will be discharged home on Albuterol and Symbicort. Anemia secondary to GI bleed, acute blood loss. The patient had an EGD which shows no active bleeding. Continue Protonix. GI bleed. The patient had an EGD. Colonoscopy as an outpatient once stable (1) to follow up. Acute kidney injury with chronic kidney disease stage 3. The patient was seen by Dr. Horne. Diuretics have been given. Initially, the patient received IV fluids. Currently, creatinine is stable. Okay to discharge as per Dr. Horne. History of lung cancer status post radiation and resection. The patient is following Dr. Jacinto. He will follow as an outpatient. Hypertension, uncontrolled, adjust medicine, currently stable. Coronary artery disease with abnormal EKG. The patient was seen by Dr. Estrada. She told to continue with medical management. No intervention needed. The patient will have ambulatory pulse ox checked for home O2 evaluation. V/Q scan is pending at the time of dictation. If negative, the patient will be discharged home. Follow with the family physician in one week's time. Follow with Dr. Tavera in three weeks' time for COPD and obstructive sleep apnea. Follow with Dr. Jacinto in one to two weeks' time for lung cancer. Unit #: [id number] #: [id number] Patient: ELLENASH Santoro Follow with Dr. Arturo Cr for GI bleed for outpatient colonoscopy in two weeks' time. The patient will be discharged with home health. Discussed with . Discharge time taken is 38 minutes. Dictated by... Leanne Keita/mera TD: 10/09/2016 11:17 JOB #: [id number] DISCHARGE SUMMARY Page 1 of 1 X Kalpana Boone MD X DISCHARGE SUMMARY
--- NOTE | ~2016-10-05 | CO ---
Unit #: [id number] #: [id number] Patient: NASH MORATAYA [id number] [address] [place], [place] [address] [id number] MR#: [id number] NAME: NASH MORATAYA ROOM: 471 Age: 75 Sex: M Admission Date: 10/05/2016 : 1940 Attending Physician: Kalpana Boone M.D. Primary Care Physician: Gina Townsend M.D. CONSULTATION REPORT HISTORY OF PRESENT ILLNESS Mr. Morataya is a 75-year-old white male, who was admitted through the emergency room because of increased shortness of breath. He has a history of coronary artery disease, diabetes, COPD, left lower lobe resection, non-small cell lung cancer, chronic iron deficiency anemia. He had a drop in his hemoglobin from 11.1 on last Wednesday to 9.1 in his PCPs office when he was admitted here on the . He had no cough or purulent sputum. No hemoptysis. He had black stools. He has been followed in our office for LORA and COPD. His pulmonary function tests reveal a mild obstruction with an FEV1 of 68% of predicted, normal lung volumes, and moderately decreased DLCO at 57% of predicted. He also has a history of LORA and was titrated on CPAP, but turned it back in because he did not like wearing it after one night. PAST MEDICAL HISTORY Significant for COPD, obstructive sleep apnea, non-small cell lung cancer, status post left lower lobe resection with evidence of recurrence followed by Dr. Jacinto. He had radiation therapy. Had a history of coronary artery disease with diastolic dysfunction, stent placement in 2012, negative ischemic workup in 2016, history of adult-onset diabetes mellitus, hyperlipidemia, hypertension, history of hiatal hernia, peripheral vascular disease, status post aorto fem-pop, history of cholecystectomy, appendectomy, inguinal hernia repair, glaucoma surgery. ALLERGIES Iodine, morphine. HOME MEDICATIONS Listed include Lortab, latanoprost, Edarbi, Lasix, folic acid, Norvasc, metoprolol, Amaryl, low-dose aspirin, lovastatin, sertraline, Plavix, Protonix, Onglyza. SOCIAL HISTORY Lives with . Has children. Reformed smoker since . No alcohol or illicit drugs. FAMILY HISTORY Heart disease. REVIEW OF SYSTEMS Otherwise, 10-point system is negative. Now he does complain of some upper abdominal pain. PHYSICAL EXAMINATION Unit #: [id number] #: [id number] Patient: NASH MORATAYA GENERAL: White male, in no distress. Awake, alert, oriented x3. VITAL SIGNS: Blood pressure is 151/62, pulse 57, respiratory rate 16, afebrile. HEENT: Normocephalic, atraumatic. Pupils are equal, round, and reactive. Sclerae nonicteric. Nasal passages patent. Posterior pharynx crowded. Mucous membranes moist. NECK: Supple. Trachea midline. No cervical or supraclavicular lymphadenopathy. LUNGS: Reveal diminished breath sounds bilaterally. Fairly clear. No wheezes. CARDIAC: Regular rate and rhythm. Could not appreciate murmur, rub, or gallop. ABDOMEN: Nontender. Bowel sounds present. No hepatosplenomegaly. EXTREMITIES: Without clubbing, cyanosis, or edema. NEUROLOGIC: Awake, oriented x3. Cranial nerves grossly intact. Muscle strength symmetric bilaterally. PSYCHIATRIC: Affect calm. SKIN: Warm and dry. IMPRESSION 1. Anemia with fairly negative upper gastrointestinal scope. 2. Dyspnea likely multifactorial secondary to anemia. 3. Diastolic dysfunction. 4. Some underlying chronic obstructive pulmonary disease. Need to rule out any acute event. We will obtain chest x-ray. 5. Obstructive sleep apnea, noncompliant with CPAP, but wishes to resume. 6. Left lower lobe resection of non-small cell lung cancer, status post radiation azygoesophageal recess where there was evidence of recurrence in the last 8 months. 7. History of esophageal ulcer. 8. Hiatal hernia. 9. Best esophagus. 10. Hypertension. 11. Hyperlipidemia. 12. Right upper quadrant pain. RECOMMENDATIONS Agree with transfusion. We will check chest x-ray to rule out any acute event. Consider CT scan of abdomen and pelvis, but we will defer to Dr. Cr. We will initiate short-acting bronchodilator treatment. We will need outpatient sleep study and repeat evaluation and treatment. Make further recommendations pending this. Dictated by... Zach Tavera M.D. JAKY/mirella TD: 10/08/2016 08:10 JOB #: [id number] Unit #: [id number] #: [id number] Patient: NASH MORATAYA CONSULTATION REPORT Page 1 of 1 X Zach Tavera MD CONSULTATION REPORT
--- NOTE | ~2016-10-05 | CR72 ---
[facility]. [facility] A Service of [facility] & [facility] RADIOLOGY TEXT RESULTS PATIENT: NASH ALMEIDA LOCATION: [place] [address] : 38 UNIT #: [id number] AGE: [address]: Kalpana Boone MD SEX: M ORDER DR: [id number] [facility] [address] [facility]. [place], [place] [address] [id number] MR#: [id number] Acc #: [id number] NAME: NASH ALMEIDA. : 1940 SEX: M STUDY DATE/TIME: 10/05/2016 14:08 UNIT: [facility] ROOM: STUDY DESCRIPTION: CR Chest Single View Portable Attending Physician: Jorge Sue D.O. Ordering Physician: Jorge Sue D.O. Primary Care Physician: Gina Townsend M.D. MEDICAL IMAGING REPORT This report is preliminary unless electronic signature is present EXAM Portable chest x-ray 10/05/2016 HISTORY Short of air. History of MRSA, history of DVT. Former smoker. Prior CABG, angioplasty with stents. Weakness, CHF. Prior history of lung cancer. AP radiograph of the chest obtained in lordotic projection. COMPARISON Comparison 09/27/2016 FINDINGS Status post median sternotomy and CABG. The heart shows stable mild enlargement. The lungs are moderately well inflated. Mild vascular prominence. Similar appearance on prior study. This may be a reflection of borderline vascular congestion. Architectural distortion in the left lung. Patient known to be status post prior left lower lobectomy. Chronic postoperative poor definition of the left hemidiaphragm felt secondary to the prior left lower lobectomy. There is no compelling evidence of acute superimposed infectious or inflammatory disease. No pleural effusion or pneumothorax. I believe there is some chronic pleural thickening left hemithorax. No suspicious nodule. Dictated by... Nash Landry M.D. THIS IS AN ELECTRONICALLY VERIFIED REPORT Nash Landry M.D. at 10/06/2016 5:16 PM RACHEL/donald TD: 10/05/2016 17:00 [facility] A Service of [facility] & [facility] RADIOLOGY TEXT RESULTS PATIENT: NASH ALMEIDA LOCATION: [facility]1-01 : 38 UNIT #: [id number] AGE: [address]: Kalpana Boone MD SEX: M ORDER DR: JOB #: [id number] MEDICAL IMAGING REPORT Page 1 of 1 COPY
--- NOTE | ~2016-10-05 | CO ---
Unit #: [id number] #: [id number] Patient: NASH ALMEIDA [id number] [address] [place], [place] [address] [id number] I MR#: [id number] NAME: NASH ALMEIDA ROOM: 471 Age: 75 Sex: M Admission Date: 10/05/2016 : 1940 Attending Physician: Kalpana Boone M.D. Primary Care Physician: Gina Townsend M.D. CONSULTATION REPORT REVISED REPORT REASON FOR CONSULTATION Abnormal EKG. HISTORY OF PRESENT ILLNESS This is a 75-year-old white male, who is known to Dr. Yates, who has an extensive cardiac history. He had coronary artery bypass graft x2 in 2004. In 2008, he had PCI with stent placement to the proximal right coronary artery. His last cardiac catheterization was in 2012, where he received three stents to the right coronary artery. Lexiscan Cardiolite stress test in 05/2015 was normal. He also has a history of peripheral vascular disease with aortofemoral bypass. He was diagnosed with dld-jlpbx-knmf lung cancer in 1994 and underwent resection of the right lower lobe. At some point, he received SBRT in the right lower lobe. In 11/2015, there was a new mass. He continues to follow Dr. Clark. He has had several endoscopy procedures over the years because of anemia. The patient is admitted with a complaint of shortness of breath, abdominal discomfort, and melenic stools that were black and tarry. His symptoms were ongoing for 2 weeks prior to his hospitalization. Initially, his hemoglobin was 10.5, but this dropped as low as 8.1. He is to receive 2 units of packed red blood cells. Endoscopy procedure is scheduled for today. Dr. Clark is also seeing the patient. EKG obtained on admission showed anterolateral ischemic changes. The patient says he has no symptoms of angina. His only symptom is dyspnea at rest and on exertion. He reports mild lower extremity edema, but no paroxysmal nocturnal dyspnea or orthopnea. He has not been eating or drinking well. His troponin has been negative x3 sets. BNP 493. There is no evidence of heart failure on examination. He is also noted to have elevated creatinine of 2.0. PAST MEDICAL HISTORY 1. Coronary artery bypass graft x2 in 2004. 2. PCI with stent to the proximal right coronary artery in 09/2008. 3. Cardiac catheterization on 04/05/2013 shows left main 90% at its origin. Circumflex proximal long segment stenosis of 50% to 60% before the first marginal branch. First marginal branch itself 90% at its origin. There was 90% stenosis of the circumflex before the first marginal branch. Saphenous vein graft to the anterior marginal branch patent. LAD with proximal 50% to 60% diffuse stenosis, but occluded after the origin of the first diagonal branch. BETHEA to the LAD beyond the graft insertion site has a 50% stenosis near the apex. Right coronary artery proximal stent patent. 90% ostial right coronary artery stenosis with mid Unit #: [id number] #: [id number] Patient: NASH ALMEIDA had another stent with 90% in-stent stenosis. PDA and PLV branch is small in caliber, but patent. 4. Status post PCI with drug-eluting stent to the ostial right coronary artery, at the junction of the proximal two-thirds and distal one-third, and ostial right coronary artery on 04/05/[address] Yates at [facility]. 5. Lexiscan Cardiolite stress test on 06/17/2015 showed an ejection fraction of 68% with no stress-induced ischemia. 6. 2D echocardiogram on 04/12/2016 showed an ejection fraction equal to 60% to 65% with mild concentric left ventricular hypertrophy. Mild mitral regurgitation. Mild aortic regurgitation. Ruzp-hu-azapgdnf tricuspid regurgitation. Right ventricular systolic pressure of 40 to 50 mmHg. 7. Hypertension. 8. Hyperlipidemia. 9. Diabetes mellitus, type 2. 10. Peripheral vascular disease, status post aortofemoral popliteal bypass. 11. Bilateral carotid stenosis. 12. COPD. 13. Qgd-ajwkx-gwnw lung cancer, status post wedge resection and radiation therapy. 14. Anemia. 15. Chronic kidney disease. 16. Glaucoma. 17. Peptic ulcer disease. 18. Former smoker. PAST SURGICAL HISTORY 1. As stated above. 2. Cholecystectomy. 3. Inguinal hernia repair. SOCIAL HISTORY The patient is and retired. He quit smoking in 1983. No current illicit drug or alcohol use. FAMILY HISTORY Positive for myocardial infarction in his mother at age 72. Father from an [place] at age 54. He has a sister, who has heart problems. ALLERGIES Iodine and morphine. HOME MEDICATIONS 1. Lortab 7.5/325 one q.6 hours p.r.n. 2. Latanoprost one drop OU q.h.s. 3. Edarbi 80 mg q.h.s. 4. Furosemide 40 mg daily. 5. Folic acid 400 mcg daily. 6. Norvasc 10 mg b.i.d. 7. Metoprolol tartrate 25 mg b.i.d. 8. Amaryl 1 mg q.i.d. 9. Aspirin 81 mg daily. 10. Losartan 20 mg daily. 11. Zoloft 50 mg daily. 12. Plavix 75 mg daily. 13. Protonix 40 mg b.i.d. 14. Onglyza 5 mg daily. Unit #: [id number] #: [id number] Patient: NASH ALMEIDA REVIEW OF SYSTEMS CONSTITUTIONAL: Negative for fever or chills. Reports weakness and fatigue. HEENT: No headache, hearing or vision changes, or difficulty with swallowing. No dizziness. CARDIOVASCULAR: Has no symptoms of angina. Has occasional palpitations. No paroxysmal nocturnal dyspnea or orthopnea. Denies syncope or near syncope. RESPIRATORY: Reports dyspnea at rest, it is worse on exertion. He has no cough or hemoptysis. GASTROINTESTINAL: Positive for abdominal discomfort, vomiting, and melenic stools. No nausea or diarrhea. EXTREMITIES: Has occasional lower extremity edema. PHYSICAL EXAMINATION VITAL SIGNS: Blood pressure is 142/54, heart rate 58, and temperature 98.5. GENERAL: This is a 75-year-old elderly white male, who is in no acute respiratory distress. NEUROLOGIC: He is awake, alert, and oriented. There are no focal weaknesses. NECK: Trachea is midline. No thyromegaly. No lymphadenopathy. No jugular venous distention. HEART: S1 and S2. Heart sounds are normal. No murmurs. No rubs or clicks. Regular rate and rhythm. LUNGS: Diminished without rales, rhonchi, or wheezing. ABDOMEN: Slightly firm. Tender with palpation. Bowel sounds are present. EXTREMITIES: Without leg edema. SKIN: Warm and dry. DIAGNOSTIC STUDIES LABORATORY RESULTS: Glucose 158, BUN 32, creatinine 2.0, sodium 141, and potassium 4.6. CK total 94, MB 2.1, and MB index 2.6. Troponin is less than 0.05 x2 and less than 0.03 x2. BNP 493. White count 9.1, hemoglobin 8.1, hematocrit 25.0, and platelet count is 188. IMAGING STUDIES: Chest x-ray shows no acute findings. CARDIOVASCULAR STUDIES: EKG on admission shows sinus bradycardia, rate of 55 beats per minute. There is T-wave inversion in the anterolateral leads. IMPRESSION 1. Acute upper gastrointestinal bleed. 2. Anemia secondary to blood loss. 3. History of coronary artery bypass graft with multiple PCI and stents. 4. Normal Lexiscan Cardiolite stress test on 06/17/2015. 5. Preserved left ventricular systolic function with ejection fraction of 60% to 65%. 6. Uncontrolled hypertension. 7. Hyperlipidemia. 8. Diabetes mellitus, type 2. 9. Chronic obstructive pulmonary disease. 10. History of vvv-sxidm-fxli lung cancer. PLAN 1. Cardiology was consulted for abnormal EKG. The patient has no symptoms of angina. He does report dyspnea on exertion that could be Unit #: [id number] #: [id number] Patient: NASH ALMEIDA secondary to anemia and COPD. We will repeat EKG. Troponin has been negative thus far. 2. Planned for an EGD today to evaluate for anemia. 3. Renal is following for acute kidney injury. 4. Control blood pressure with IV hydralazine while n.p.o. Thank you for allowing us to assist in this patient's care. Dictated by... Zach Suarez/mirella TD: 10/08/2016 15:43 JOB #: [id number] Leanne Lloyd/fermínision Please Delete CONSULTATION REPORT Page 1 of 1 X Gregory Bonner APRN X CONSULTATION REPORT
--- NOTE | ~2016-10-05 | CR63 ---
[facility]. [facility] A Service of [facility] & [facility] RADIOLOGY TEXT RESULTS PATIENT: NASH ALMEIDA LOCATION: [place] [address] : 38 UNIT #: [id number] AGE: [address]: Kalpana Boone MD SEX: M ORDER DR: [id number] [facility] [address] [facility]. [place], [place] [address] [id number] I MR#: [id number] Acc #: [id number] NAME: NASH ALMEIDA. : 1940 SEX: M STUDY DATE/TIME: 10/07/2016 16:28 UNIT: [facility] ROOM: [facility] STUDY DESCRIPTION: CR Chest 2 View Attending Physician: Kalpana Boone M.D. Ordering Physician: Zach Tavera M.D. Primary Care Physician: Gina Townsend M.D. MEDICAL IMAGING REPORT This report is preliminary unless electronic signature is present EXAM 2 views chest 10/07/2016. HISTORY Short of air, anemia, weakness 2 days duration. History of CHF, DVT. Former CABG. Former smoker. Prior history of lung cancer. TECHNIQUE PA and lateral radiographs of the chest are presented. COMPARISON 10/05/2016 FINDINGS Status post median sternotomy and CABG. Patient appears to be status post left partial pneumonectomy. Stable cardiac enlargement. Compared to 10/05/2016, pulmonary vasculature is slightly more prominent, slightly increased interstitial densities in the fzf-yc-umiea lung zones, with increased hazy density in the left fnq-dr-enjka residual lung. Possible small left pleural effusion. The appearance suggests a relatively mild pulmonary edema with interstitial and left pleural space involvement. No dense airspace disease. No pneumothorax or suspicious nodule. Followup to radiographic resolution recommended. Dictated by... Nash Landry M.D. THIS IS AN ELECTRONICALLY VERIFIED REPORT Nash Landry M.D. at 10/08/2016 6:12 PM RACHEL/avery TD: 10/07/2016 18:48 [facility] A Service of [facility] & [facility] RADIOLOGY TEXT RESULTS PATIENT: NASH ALMEIDA LOCATION: [place] [address] : 38 UNIT #: [id number] AGE: [address]: Kalpana Boone MD SEX: M ORDER DR: JOB #: [id number] MEDICAL IMAGING REPORT Page 1 of 1 COPY
--- NOTE | ~2016-10-05 | CO ---
Unit #: [id number] #: [id number] Patient: NASH ALMEIDA [id number] [address] [place], [place] [address] [id number] I MR#: [id number] NAME: NASH ALMEIDA ROOM: 471 Age: 75 Sex: M Admission Date: 10/05/2016 : 1940 Attending Physician: Kalpana Boone M.D. Primary Care Physician: Gina Townsend M.D. Consultation Date: 10/05/2016 CONSULTATION REPORT PRIMARY CARE PHYSICIAN Gina Townsend M.D. REASON FOR CONSULTATION GI bleed. HISTORY OF PRESENT ILLNESS Mr. So is a 75-year-old white gentleman, who has been having increasing shortness of breath. In addition, his hemoglobin has dropped and the patient mentioned history of dark melanotic stools for the past 7 consecutive days. He denies any history of abdominal pain. Does not take any qwih-jkd-nstneve NSAIDs. The patient however is on aspirin and Plavix. He lives at home with his . There is no history of any epigastric pain or postprandial dyspepsia. PAST MEDICAL HISTORY Significant for type 2 diabetes, hyperlipidemia, hypertension, Best esophagus as well as peripheral arterial disease. He also has history of non-small cell lung cancer. PAST SURGICAL HISTORY Included cholecystectomy, inguinal herniorrhaphy, aortofemoral bypass, and surgery for glaucoma. MEDICATIONS At home included Lortab, Lasix, folic acid, Norvasc, metoprolol, Amaryl, low-dose aspirin, Plavix, sertraline, lovastatin, Protonix, and Onglyza. ALLERGIES He is allergic to morphine and iodine. FAMILY HISTORY Significant for coronary artery disease. SOCIAL HISTORY Lives at home with his . Does not drink alcohol. Stopped smoking about 20 years ago. REVIEW OF SYSTEMS Detailed review of organ system does not reveal any recent weight loss. No history of fever, chills, or rigors. No history of headache, seizures, chest pain, or syncope. There is history of shortness of breath. No history of cough, expectoration, or hemoptysis. No history of dysuria, Unit #: [id number] #: [id number] Patient: NASH ALMEIDA hematuria, or pyuria. There is history of melena for the past 6 to 7 days. No history of skin rash, aphthous ulcers in the mouth, or reactive arthritis. Rest of the review of organ systems are unremarkable. PHYSICAL EXAMINATION GENERAL: He is alert and oriented, and appears short of breath. VITAL SIGNS: Indicate a temperature of 98.0, pulse is 58 per minute and regular, respiratory rate is 20, and blood pressure is 201/52. He weighs 201 pounds, close to his baseline weight. HEENT: He has moderate pallor. There being no icterus, lymphadenopathy, or peripheral edema. CARDIOVASCULAR: Reveals normal heart sounds. No murmurs. LUNGS: Auscultation over the lungs reveal normal breath sounds. Good air entry. ABDOMEN: Soft, obese, and nontender. Liver and spleen are not palpable. Bowel sounds normal. Hernia sites also normal. DIAGNOSTIC STUDIES LABORATORY RESULTS: Hemoglobin of 8.9, baseline hemoglobin is 10.5. The red cell indices are normochromic normocytic. Platelet count is normal. Serum chemistry shows a BUN and creatinine of 33 and 2.0, his baseline creatinine has been about 1.6 to 1.8 in the past. His albumin is 2.9. LFTs are normal. CLINICAL IMPRESSION The patient has history of melena, drop in hemoglobin, and acute kidney injury. The most likely etiology is upper gastrointestinal bleed. An upper gastrointestinal endoscopy and endotherapy indicated. This will be scheduled for tomorrow. In the meantime, we will also obtain patient's iron studies, B12, and folate levels. Lastly, he will be given packed cell transfusion if needed. Thank you very much for asking me to see this pleasant gentleman. I appreciate the consult. Dictated by... Leanne Jarrett/mirella TD: 10/08/2016 01:10 JOB #: [id number] CC: Lizz/fermínision Please Delete CONSULTATION REPORT Page 1 of 1 X Arturo Cr MD CONSULTATION REPORT
--- NOTE | ~2016-10-05 | US78 ---
[facility] A Service of [facility] RADIOLOGY TEXT RESULTS PATIENT: NASH ALMEIDA LOCATION: [facility] 471- : 38 UNIT #: [id number] AGE: [address]: Kalpana Boone MD SEX: M ORDER DR: [id number] [place] [id number] [facility]. [place], [place] [address] [id number] I MR#: [id number] Acc #: [id number] NAME: NASH ALMEIDA. : 1940 SEX: M STUDY DATE/TIME: 10/07/2016 8:10 UNIT: [facility] ROOM: [facility] STUDY DESCRIPTION: US Kidney Duplex Complete Attending Physician: Kalpana Boone M.D. Ordering Physician: Elaine Horne M.D. Primary Care Physician: Gina Townsend M.D. MEDICAL IMAGING REPORT This report is preliminary unless electronic signature is present EXAM Bilateral renal artery Doppler ultrasound, 10/07/2016 HISTORY Hypertension for 40 years. Chronic kidney disease. COMPARISON CTA of the abdomen, 05/17/2013 FINDINGS The juxtarenal abdominal aortic peak systolic velocity is 69.4 cm/sec. Imaged segments of the abdominal aorta are OF normal caliber without aneurysm. Right intrarenal resistive indices vary between 0.82 to 0.96. Right renal vein is patent. Right renal artery peak systolic velocity proximal segment 102 cm/sec, mid segment 107.6 cm/sec, distal segment 141.6 cm/sec. Normal spectral Doppler waveform is demonstrated. The left kidney intrarenal resistive indices vary between 0.76 to 0.79. The left renal vein is patent. Left renal artery peak systolic velocity proximal segment 121.1 cm/sec, mid segment 156.3 cm/sec, distal segment 176.3 cm/sec. Right renal to aortic ratio 2.0. Left renal to aortic ratio 2.5. IMPRESSION 1. No hemodynamically significant renal artery stenosis by standard [facility] A Service [facility] RADIOLOGY TEXT RESULTS PATIENT: NASH ALMEIDA LOCATION: [facility] 471-01 : 38 UNIT #: [id number] AGE: [address]: Kalpana Boone MD SEX: M ORDER DR: ultrasound criteria. 2. Of note, there is elevated intrarenal resistive indices bilaterally, right greater left, which can indicate underlying chronic medical renal disease. 3. Dedicated bilateral renal ultrasound was performed separately on this same date. Dictated by... Annalise Yanes M.D. THIS IS AN ELECTRONICALLY VERIFIED REPORT Annalise Yanes M.D. at 10/08/2016 7:12 AM SHAYNE/troy TD: 10/07/2016 15:38 JOB #: [id number] MEDICAL IMAGING REPORT Page 1 of 1 COPY
--- NOTE | ~2016-10-05 | US77 ---
[facility] A Service of [facility] & [facility] RADIOLOGY TEXT RESULTS PATIENT: NASH ALMEIDA LOCATION: [place] [address]- : 38 UNIT #: [id number] AGE: [address]: Kalpana Boone MD SEX: M ORDER DR: [id number] [facility] [address] [facility]. [place], [place] [address] [id number] I MR#: [id number] Acc #: [id number] NAME: NASH ALMEIDA. : 1940 SEX: M STUDY DATE/TIME: 10/07/2016 7:56 UNIT: [facility] ROOM: [facility] STUDY DESCRIPTION: US Kidney Bilateral Complete Attending Physician: Kalpana Boone M.D. Ordering Physician: Elaine Horne M.D. Primary Care Physician: Gina Townsend M.D. MEDICAL IMAGING REPORT This report is preliminary unless electronic signature is present EXAM Bilateral renal ultrasound, 10/07/2016 HISTORY Hypertension for 40 years. Chronic kidney disease. COMPARISON CT chest without contrast 06/29/2016. No previous renal ultrasound at this institution for comparison. CT abdomen without contrast 01/14/2010. FINDINGS The right kidney measures 11.9 x 5.5 x 4.4 cm. The left kidney measures 10.6 x 5.1 x 5.5 cm. Both kidneys demonstrate increased cortical echogenicity suggesting features of chronic medical renal disease. Renal cortical thickness is slightly diminished. There are two hypoechoic lesions within the right kidney, in the upper pole in the interpolar region measuring 1.3 x 1.4 x 1.4 cm, another in the lower pole measuring 1.5 x 1.5 x 1.3 cm. A hypoechoic lesion is also demonstrated within the left mid kidney measuring 2.7 x 2.5 x 3.4 cm. These are favored to represent benign hemorrhagic or proteinaceous cysts, anon-diagnostic correspond to the cysts seen in this similar locations on the CTA of the abdomen from 05/17/2013. Urinary bladder appears normal. IMPRESSION 1. Single left, two right hypoechoic renal lesions strongly favored to represent benign hemorrhagic or proteinaceous cyst, corresponding to cysts seen on the postcontrast CTA from 05/17/2013. 2. Echogenicity of the cortex bilaterally with cortical thinning suggesting changes of chronic medical renal disease. 3. No hydronephrosis. Dictated by... [facility] A Service of [facility] & [facility] RADIOLOGY TEXT RESULTS PATIENT: NASH ALMEIDA LOCATION: [place] [address] : 38 UNIT #: [id number] AGE: [address]: Kalpana Boone MD SEX: M ORDER DR: Annalise Yanes M.D. THIS IS AN ELECTRONICALLY VERIFIED REPORT Annalise Yanes M.D. at 10/08/2016 7:12 AM Lilia TD: 10/07/2016 15:29 JOB #: [id number] MEDICAL IMAGING REPORT Page 1 of 1 COPY
--- NOTE | ~2016-10-05 | NM69 ---
[facility] A Service of [facility] RADIOLOGY TEXT RESULTS PATIENT: NASH ALMEIDA [facility] UNIT #: [id number] AGE: [address]: Kalpana Boone MD SEX: M ORDER DR: [id number] [facility] [address] [facility]. [place], [place] [address] [id number] I MR#: [id number] Acc #: [id number] NAME: NASH ALMEIDA : 1940 SEX: M STUDY DATE/TIME: 10/09/2016 12:07 UNIT: [facility] ROOM: [facility] STUDY DESCRIPTION: NM Pulm Vent and Perf Attending Physician: Kalpana Boone M.D. Ordering Physician: Kalpana Boone M.D. Primary Care Physician: Gina Townsend M.D. MEDICAL IMAGING REPORT This report is preliminary unless electronic signature is present EXAM Nuclear medicine ventilation-perfusion scan. DATE 10/09/2016 HISTORY Desaturation when walking. Short of breath for two weeks. Previous history of deep venous thrombosis. History of lung cancer with left lower lobe excision. Dropping hemoglobin levels. COMPARISON PA and lateral chest 10/09/2016 at 1138, CT chest 06/29/2016. FINDINGS Following the inhalation of 33.6 mCi technetium 99m DTPA in aerosol form for ventilation imaging purposes, and the intravenous administration of 5.85 mCi technetium 99m MAA for perfusion imaging purposes, multiple projections were obtained of the chest and compared to today's chest radiograph. Normal radiopharmaceutical uptake is demonstrated in both lungs on perfusion imaging. No V/Q mismatch is seen. There is some central radiopharmaceutical clumping on ventilation imaging which may indicate underlying COPD. There is slight heterogeneous uptake in the lungs on ventilation imaging. IMPRESSION Low probability study for pulmonary embolism. No V/Q mismatch. Dictated by... [facility] A Service [facility] RADIOLOGY TEXT RESULTS PATIENT: NASH ALMEIDA LOCATION: [place] [address] : 38 UNIT #: [id number] AGE: [address]: Kalpana Boone MD SEX: M ORDER DR: Annalise Yanes M.D. THIS IS AN ELECTRONICALLY VERIFIED REPORT Annalise Yanes M.D. at 10/12/2016 1:22 PM SHAYNE/akil TD: 10/09/2016 16:52 JOB #: [id number] MEDICAL IMAGING REPORT Page 1 of 1 COPY
--- NOTE | ~2016-10-05 | EKG ---
PATIENT: NASH ALMEIDA UNIT #: [id number] Ventricular Rate: 55 BPM Atrial Rate: 55 BPM P-R Interval: 198 ms QRS Duration: 92 ms Q-T Interval: 450 ms QTC Calculation(Bezet): 430 ms P Hildreth: 27 degrees Calculated R Hildreth: 13 degrees Calculated T Hildreth: 163 degrees Diagnosis Line: Sinus bradycardia Diagnosis Line: ST and T wave abnormality, consider inferolateral Diagnosis Line: ischemia Diagnosis Line: Abnormal ECG Diagnosis Line: When compared with ECG of 27-SEP-2016 10:36, Diagnosis Line: T abnormalities worse Diagnosis Line: Confirmed by KHAI HERNANDEZ MD ([id number]) on Diagnosis Line: 10/06/2016 9:08:20 PM INTERPRETING MD: DWIGHT
[~2016-10-05 12:56] MED LIST changes: +EDARBI80 MG PO; +FOLIC ACID PO; +LATANOPROST2.5 ML OU; +LORTAB 7.5-3251 EACH PO; +LOW DOSE ASPIRI81 M1 PO; +NORVASC10 MG PO; +SERTRALINE HCL50 MG PO
[2016-10-05] MEDS ORDERED: PATIENT'S PHARMACY (13:39)
[2016-10-05 15:21] LABS: BASOPHIL% 0.4 % (0-2.5); EOSINOPHIL# 0.1 X10e3 (0-0.7); EOSINOPHIL% 0.7 % (0.0-7.0); HEMATOCRIT 27.6 % (38.0-50.0); HEMOGLOBIN 8.9 gm/dL (13.0-16.0); LYMPHOCYTE# 0.4 X10e3 (1.0-3.5); LYMPHOCYTE% 5.1 % (17.0-45.0); MEAN CORPUSCULAR HGB CONC 32.1 g/dL (30-36); MEAN PLATELET VOLUME 9.3 FL (6.5-11.5); MONOCYTE# 0.9 X10e3 (0-1.0); MONOCYTE% 10.4 % (3.0-12.0); NEUTROPHIL% 83.4 % (40-75); PLATELET COUNT 211 X10e3 (140-420); RED BLOOD COUNT 3.41 X10e (3.90-5.60); RED CELL DISTRIBUTION WIDTH 17.9 % (11.0-15.5); WHITE BLOOD COUNT 8.4 X10e3 (4.0-10.5)
[2016-10-05 15:25] LABS: PARTIAL THROMBOPLASTIN TIME 29.4 SECONDS (23.5-31.3); PROTHROMBIN TIME (PATIENT) 10.7 SECONDS (9.6-11.5)
[2016-10-05 15:30] LABS: DIFF IND NO
[2016-10-05 15:39] LABS: ALBUMIN SERUM 3.2 g/dL (3.5-5.0); ALKALINE PHOSPHATASE 77 U/L (32-92); ALT (SGPT) 14 U/L (10-40); AST (SGOT) 14 U/L (10-42); BILIRUBIN,TOTAL 0.6 mg/dL (0.2-2.0); BLOOD UREA NITROGEN 33 mg/dL (9-23); CALCIUM SERUM 8.9 mg/dL (8.4-10.2); CARBON DIOXIDE 26 mmol/L (22-31); CHLORIDE 107 mmol/L (100-111); GLOM FILT RATE Estimated 31.3 mL/min (>60); GLUCOSE FASTING 140 mg/dL (70-110); POTASSIUM 4.5 mmol/L (3.5-5.1); PROTEIN TOTAL SERUM 6.6 g/dL (6.0-8.3); SODIUM 141 mmol/L (135-145)
[2016-10-05 15:56] LABS: BILIRUBIN, DIRECT <0.1 mg/dL (0.0-0.2); BILIRUBIN,INDIRECT 0.5 mg/dL (0.0-0.9)
[2016-10-05 17:09] LABS: POC - CKMB 2.1 ng/mL (0.0-7.9); POC - TROPONIN <0.05 ng/mL (<=0.05)
[2016-10-06 01:46] LABS: BASOPHIL# 0.1 X10e3 (0-0.3); BASOPHIL% 0.7 % (0-2.5); EOSINOPHIL% 0.4 % (0.0-7.0); HEMOGLOBIN 8.1 gm/dL (13.0-16.0); LYMPHOCYTE# 0.5 X10e3 (1.0-3.5); LYMPHOCYTE% 5.2 % (17.0-45.0); MEAN CELL VOLUME 80.3 FL (83-96); MEAN CORPUSCULAR HGB CONC 32.4 g/dL (30-36); MEAN PLATELET VOLUME 9.5 FL (6.5-11.5); MONOCYTE# 0.9 X10e3 (0-1.0); MONOCYTE% 10.3 % (3.0-12.0); NEUTROPHIL# 7.6 X10e3 (1.5-7.1); NEUTROPHIL% 83.4 % (40-75); PLATELET COUNT 188 X10e3 (140-420); RED BLOOD COUNT 3.11 X10e (3.90-5.60); WHITE BLOOD COUNT 9.1 X10e3 (4.0-10.5)
[2016-10-06 01:51] LABS: DIFF IND NO
[2016-10-06 02:11] LABS: ALBUMIN SERUM 2.9 g/dL (3.5-5.0); BILIRUBIN,TOTAL 0.6 mg/dL (0.2-2.0); CALCIUM SERUM 8.6 mg/dL (8.4-10.2); GLOM FILT RATE Estimated 31.3 mL/min (>60); POTASSIUM 4.6 mmol/L (3.5-5.1); PROTEIN TOTAL SERUM 6.1 g/dL (6.0-8.3)
[2016-10-06 02:41] LABS: %MB 2.6 % (0.0-4.0); MB 2.1 ng/ml
[2016-10-06 12:40] LABS: IRON SERUM 14 ug/dL (45-182); TOTAL IRON BINDING CAPACITY 274 ug/dL (252-460); TRANSFERRIN 196 mg/dL (180-329); TRANSFERRIN SATURATION 5 % (20-50)
[2016-10-06 13:48] LABS: %MB 2.1 % (0.0-4.0)
[2016-10-06 17:08] LABS: URINE SOURCE CLEAN CATCH
[2016-10-06 17:13] LABS: URINE APPEARANCE CLEAR; URINE BILIRUBIN NEG (NEG); URINE BLOOD 2+ (NEG); URINE COLOR YELLOW; URINE GLUCOSE 500 MG/DL (NEG); URINE KETONE NEG (NEG); URINE LEUKOCYTE ESTERASE NEG (NEG); URINE NITRATE NEG (NEG); URINE PROTEIN 3+ (NEG); URINE SPECIFIC GRAVITY 1.025 (1.003-1.035)
[2016-10-06 17:15] LABS: CULTURE INDICATED? NO; URINE BACTERIA AUWI NEG (NEGATIVE); URINE SQUAMOUS EPITHELIAL CELL NONE SEEN /[HPF]; UWBCS1 AUWI 0-2 (0-5)
[2016-10-06 17:50] LABS: CREATININE,RANDOM URINE 163 mg/dL; SODIUM URINE RANDOM 39 mmol/L; TOTAL PROTEIN,RANDOM URINE 1433 mg/dl (<10)
[2016-10-07 04:07] LABS: HEMATOCRIT 29.3 % (38.0-50.0); HEMOGLOBIN 9.7 gm/dL (13.0-16.0); MEAN CELL VOLUME 81.5 FL (83-96); MEAN CORPUSCULAR HEMOGLOBIN 26.9 PG (28-34); MEAN CORPUSCULAR HGB CONC 33.1 g/dL (30-36); MEAN PLATELET VOLUME 9.4 FL (6.5-11.5); RED BLOOD COUNT 3.59 X10e (3.90-5.60); RED CELL DISTRIBUTION WIDTH 17.5 % (11.0-15.5)
[2016-10-07 04:27] LABS: ALBUMIN SERUM 2.9 g/dL (3.5-5.0); BILIRUBIN,TOTAL 1.1 mg/dL (0.2-2.0); BUN/CREATININE RATIO 14.76; CALCIUM SERUM 8.4 mg/dL (8.4-10.2); CREATININE SERUM 2.1 mg/dL (0.6-1.4); GLOM FILT RATE Estimated 29.5 mL/min (>60); PHOSPHOROUS 3.5 mg/dL (2.5-4.6); POTASSIUM 3.7 mmol/L (3.5-5.1); PROTEIN TOTAL SERUM 6.6 g/dL (6.0-8.3); URIC ACID 8.3 mg/dL (2.6-7.2)
[2016-10-08 02:20] LABS: BASOPHIL% 0.4 % (0-2.5); EOSINOPHIL# 0.1 X10e3 (0-0.7); EOSINOPHIL% 0.6 % (0.0-7.0); HEMATOCRIT 26.2 % (38.0-50.0); HEMOGLOBIN 8.6 gm/dL (13.0-16.0); LYMPHOCYTE# 0.5 X10e3 (1.0-3.5); LYMPHOCYTE% 5.2 % (17.0-45.0); MEAN CELL VOLUME 81.9 FL (83-96); MEAN CORPUSCULAR HEMOGLOBIN 26.9 PG (28-34); MEAN CORPUSCULAR HGB CONC 32.8 g/dL (30-36); MEAN PLATELET VOLUME 9.4 FL (6.5-11.5); MONOCYTE# 1.3 X10e3 (0-1.0); MONOCYTE% 14.3 % (3.0-12.0); NEUTROPHIL# 7.1 X10e3 (1.5-7.1); NEUTROPHIL% 79.5 % (40-75); PLATELET COUNT 183 X10e3 (140-420); RED CELL DISTRIBUTION WIDTH 18.1 % (11.0-15.5); WHITE BLOOD COUNT 8.9 X10e3 (4.0-10.5)
[2016-10-08 02:24] LABS: DIFF IND NO
[2016-10-08 02:58] LABS: ALBUMIN SERUM 2.4 g/dL (3.5-5.0); BILIRUBIN,TOTAL 0.8 mg/dL (0.2-2.0); BUN/CREATININE RATIO 16.19; CREATININE SERUM 2.1 mg/dL (0.6-1.4); GLOM FILT RATE Estimated 29.5 mL/min (>60); POTASSIUM 4.2 mmol/L (3.5-5.1); PROTEIN TOTAL SERUM 5.3 g/dL (6.0-8.3)
[2016-10-09 02:21] LABS: BASOPHIL% 0.5 % (0-2.5); EOSINOPHIL# 0.2 X10e3 (0-0.7); EOSINOPHIL% 1.7 % (0.0-7.0); HEMATOCRIT 27.2 % (38.0-50.0); LYMPHOCYTE# 0.4 X10e3 (1.0-3.5); LYMPHOCYTE% 4.6 % (17.0-45.0); MEAN CORPUSCULAR HEMOGLOBIN 26.9 PG (28-34); MEAN CORPUSCULAR HGB CONC 33.2 g/dL (30-36); MEAN PLATELET VOLUME 8.7 FL (6.5-11.5); MONOCYTE# 1.1 X10e3 (0-1.0); MONOCYTE% 11.7 % (3.0-12.0); NEUTROPHIL# 7.4 X10e3 (1.5-7.1); NEUTROPHIL% 81.5 % (40-75); PLATELET COUNT 204 X10e3 (140-420); RED BLOOD COUNT 3.36 X10e (3.90-5.60); RED CELL DISTRIBUTION WIDTH 17.6 % (11.0-15.5)
[2016-10-09 02:22] LABS: DIFF IND NO
[2016-10-09 02:27] LABS: COMPLEMENT C3 194 mg/dL (90-180); COMPLEMENT C4 43 mg/dL (16-47)
[2016-10-09 02:57] LABS: ALBUMIN SERUM 2.5 g/dL (3.5-5.0); BILIRUBIN,TOTAL 0.9 mg/dL (0.2-2.0); BUN/CREATININE RATIO 17.5; CALCIUM SERUM 8.2 mg/dL (8.4-10.2); GLOM FILT RATE Estimated 31.3 mL/min (>60); POTASSIUM 4.1 mmol/L (3.5-5.1); PROTEIN TOTAL SERUM 5.3 g/dL (6.0-8.3)
[2016-10-10 02:59] LABS: HEMATOCRIT 27.9 % (38.0-50.0); MEAN CELL VOLUME 82.1 FL (83-96); MEAN CORPUSCULAR HEMOGLOBIN 26.5 PG (28-34); MEAN CORPUSCULAR HGB CONC 32.3 g/dL (30-36); MEAN PLATELET VOLUME 8.9 FL (6.5-11.5); RED BLOOD COUNT 3.4 X10e (3.90-5.60); RED CELL DISTRIBUTION WIDTH 17.9 % (11.0-15.5); WHITE BLOOD COUNT 9.7 X10e3 (4.0-10.5)
[2016-10-10 03:49] LABS: ALBUMIN SERUM 2.4 g/dL (3.5-5.0); BILIRUBIN,TOTAL 1.1 mg/dL (0.2-2.0); BUN/CREATININE RATIO 14.73; CALCIUM SERUM 8.2 mg/dL (8.4-10.2); CREATININE SERUM 1.9 mg/dL (0.6-1.4); GLOM FILT RATE Estimated 33.3 mL/min (>60); POTASSIUM 4.3 mmol/L (3.5-5.1); PROTEIN TOTAL SERUM 5.3 g/dL (6.0-8.3)
[2016-10-10] MEDS ORDERED: HYDRALAZINE HCL50 MG PO (14:30)
[2016-10-10] MEDS ORDERED: LASIX PO (14:30)
[2016-10-10] MEDS ORDERED: LEVAQUIN750 MG PO (14:31)
[2016-10-10] MEDS ORDERED: SYMBICORT INH (14:31)
[2016-10-10] MEDS ORDERED: ALBUTEROL17 GM INH (14:33)
[2016-10-11 14:20] LABS: ANA SCREEN Negative (Negative); HEP C AB (HEPPAN) Nonreactive (Nonreactive); HEP C AB SIGNAL TO CUTOFF 0.02 ratio (<1.00); MYELOPEROXIDASE AB (PNL) <1.0 AI (<1.0); PROTEINASE-3 AB (PNL) <1.0 AI (<1.0)
== END 2016-10-10 15:00 | disposition home or self-care (01) | DRG 377 ==
LOC: CED 12:56 → C4C 17:15 → CEDOF 17:15 → CED 17:15 → C4C 17:50 → CEDOF 17:50 → CED 17:50 → CEDOF 19:52 → C4C 19:52
PROVIDERS: Emergency Medicine; Internal Medicine; Internal Medicine Gastroenterology; Internal Medicine Hematology; Internal Medicine Nephrology
PROC: 0DB78ZX Excision of Stomach, Pylorus, Via Natural or Artificial Opening Endoscopic, Diagnostic (ICD-10-PCS; principal; 2016-10-06 16:13)
PROC: 30233N1 Transfusion of Nonautologous Red Blood Cells into Peripheral Vein, Percutaneous Approach (ICD-10-PCS; 2016-10-06 16:13)
DX: K92.1 Melena (principal); J96.01 Acute respiratory failure with hypoxia; N17.9 Acute kidney failure, unspecified; E44.0 Moderate protein-calorie malnutrition; D62 Acute posthemorrhagic anemia; I13.0 Hypertensive heart and chronic kidney disease with heart failure and stage 1 through stage 4 chronic kidney disease, or unspecified chronic kidney disease; E11.22 Type 2 diabetes mellitus with diabetic chronic kidney disease; E11.65 Type 2 diabetes mellitus with hyperglycemia; I50.30 Unspecified diastolic (congestive) heart failure; J44.1 Chronic obstructive pulmonary disease with (acute) exacerbation; K44.9 Diaphragmatic hernia without obstruction or gangrene; K22.70 Barrett's esophagus without dysplasia; K29.60 Other gastritis without bleeding; D50.9 Iron deficiency anemia, unspecified; N18.3 Chronic kidney disease, stage 3 (moderate); Z87.891 Personal history of nicotine dependence; G47.33 Obstructive sleep apnea (adult) (pediatric); Z91.19 Patient's noncompliance with other medical treatment and regimen; Z85.118 Personal history of other malignant neoplasm of bronchus and lung; R94.31 Abnormal electrocardiogram [ECG] [EKG]; E78.5 Hyperlipidemia, unspecified; I65.23 Occlusion and stenosis of bilateral carotid arteries; K27.9 Peptic ulcer, site unspecified, unspecified as acute or chronic, without hemorrhage or perforation; Z68.31 Body mass index [BMI] 31.0-31.9, adult; I25.10 Atherosclerotic heart disease of native coronary artery without angina pectoris; Z95.5 Presence of coronary angioplasty implant and graft; Z95.1 Presence of aortocoronary bypass graft; R00.1 Bradycardia, unspecified; Z90.49 Acquired absence of other specified parts of digestive tract; Z82.49 Family history of ischemic heart disease and other diseases of the circulatory system; Z91.041 Radiographic dye allergy status; Z88.5 Allergy status to narcotic agent; Z90.2 Acquired absence of lung [part of]; Z92.3 Personal history of irradiation
CPT/HCPCS: 36415; 71010; 71020; 76770; 78582; 80048; 80053; 80076; 81003; 82550; 82553; 82570; 82728; 82947; 83520; 83540; 83550; 83880; 84100; 84156; 84300; 84484; 84550; 85025; 85027; 85610; 85730; 86021; 86038; 86039; 86160; 86334; 86803; 86850; 86900; 86901; 86923; 87077; 93005; 93975; 94640; 94664; 94760; 97162; 97165; 99285; A9540; A9567; C9113; G8978-GP; G8979-GP; G8980-GP; G8987-GO; G8988-GO; G8989-GO; J0360; J0885; J1815; J1940; J1956; J2250; J2916; J3010; J3420; P9016; Q0138

== ENCOUNTER 2016-10-19 13:31 | Inpatient (IN) | payer OTHER ==
[~2016-10-19] VITALS: Ht 170.2 cm; Wt 86.1 kg
--- NOTE | ~2016-10-19 | EKG ---
PATIENT: NASH ALMEIDA UNIT #: [id number] Ventricular Rate: 64 BPM Atrial Rate: 64 BPM P-R Interval: 214 ms QRS Duration: 88 ms Q-T Interval: 442 ms QTC Calculation(Bezet): 455 ms P Forgan: 68 degrees Calculated R Forgan: 29 degrees Calculated T Forgan: 58 degrees Diagnosis Line: Sinus rhythm with 1st degree A-V block Diagnosis Line: Nonspecific ST abnormality Diagnosis Line: Abnormal ECG Diagnosis Line: When compared with ECG of 31-OCT-2016 01:45, Diagnosis Line: (unconfirmed) Diagnosis Line: No significant change was found Diagnosis Line: Confirmed by KHAI HERNANDEZ MD ([id number]) on Diagnosis Line: 11/01/2016 9:59:43 AM INTERPRETING : DWIGHT
--- NOTE | ~2016-10-19 | HP ---
Unit #: [id number] #: [id number] Patient: NASH ALMEIDA [id number] [address] [place], [place] [address] [id number] Esau MR#: [id number] NAME: NASH ALMEIDA. ROOM: 314 Age: 75 Sex: M Admission Date: 10/19/2016 : 1940 Attending Physician: Brooklyn Schulz M.D. Primary Care Physician: Gina Townsend M.D. HISTORY AND PHYSICAL ADDENDUM As stated in plan, I ordered an EKG if not already done. An EKG was not done. The EKG was done STAT at the time of my order. It showed ST depression in the lateral leads. I also ordered STAT cardiac enzymes. Troponin is 0.58. I have consulted Dr. Yates. I also started the patient on nitroglycerin paste. I suspect that he could have some demand ischemia due to GI bleed. I have not started him on any anticoagulation due to GI bleed. I did not give aspirin due to GI bleed. Dictated by Leanne Robertson/arianna TD: 10/19/2016 18:31 JOB #: [id number] HISTORY AND PHYSICAL Page 1 of 1 X Brooklyn Schulz MD HISTORY AND PHYSICAL
--- NOTE | ~2016-10-19 | CR72 ---
[facility] A Service of [facility] & [facility] RADIOLOGY TEXT RESULTS PATIENT: NASH ALMEIDA LOCATION: [place] [id number] : 38 UNIT #: [id number] AGE: [address]: Mukund Escobedo MD SEX: M ORDER DR: [id number] [facility] [address] [facility]. [place], [place] [address] [id number] I MR#: [id number] Acc #: [id number] NAME: NASH ALMEIDA. : 1940 SEX: M STUDY DATE/TIME: 10/23/2016 14:24 UNIT: [facility] ROOM: [facility] STUDY DESCRIPTION: CR Chest Single View Portable Attending Physician: Rj Drake M.D. Ordering Physician: Rj Drake M.D. Primary Care Physician: Gina Townsend M.D. MEDICAL IMAGING REPORT This report is preliminary unless electronic signature is present EXAM Portable chest 1-view 09/26/2016 at 14:24 COMPARISON STUDIES 10/23/2016 at 06:15 a.m. HISTORY Respiratory failure. Attempted Shiley catheter placement. FINDINGS Re-demonstrated extensive coarse bilateral infiltrates. No pneumothorax. ET tube present, tip 3 cm above the alanna and feeding tube remains in place. IMPRESSION Persistent extensive bilateral infiltrates but no evidence of pneumothorax. Dictated by... Abraham Bautista M.D. THIS IS AN ELECTRONICALLY VERIFIED REPORT Abraham Bautista M.D. at 10/26/2016 10:57 AM TEV/pcl TD: 10/23/2016 21:06 JOB #: [id number] MEDICAL IMAGING REPORT Page 1 of 1 COPY
--- NOTE | ~2016-10-19 | EKG ---
PATIENT: NASH ALMEIDA UNIT #: [id number] Ventricular Rate: 101 BPM Atrial Rate: 100 BPM QRS Duration: 88 ms Q-T Interval: 344 ms QTC Calculation(Bezet): 446 ms Calculated R Patterson: 15 degrees Calculated T Patterson: 171 degrees Diagnosis Line: Atrial fibrillation with rapid ventricular Diagnosis Line: response Diagnosis Line: Left ventricular hypertrophy Diagnosis Line: Marked ST abnormality, possible inferior Diagnosis Line: subendocardial injury Diagnosis Line: Abnormal ECG Diagnosis Line: When compared with ECG of 21-OCT-2016 05:47, Diagnosis Line: Atrial fibrillation has replaced Sinus rhythm Diagnosis Line: T wave inversion less evident in Anterior leads Diagnosis Line: Confirmed by APOLLO SIMPSON MD ([id number]) on 10/28/2016 Diagnosis Line: 2:55:57 PM INTERPRETING MD: TATIANA SHETH
--- NOTE | ~2016-10-19 | CO ---
Unit #: [id number] #: [id number] Patient: NASH ALMEIDA [id number] [place] [id number] [facility]. [place], [place] [address] [id number] I MR#: [id number] NAME: NASH ALMEIDA. ROOM: [facility] Age: 75 Sex: M Admission Date: 10/19/2016 : 1940 Attending Physician: Rj Drake M.D. Primary Care Physician: Gina Townsend M.D. Consultation Date: 10/20/2016 CONSULTATION REPORT DICTATED FOR Dr. Arturo Cr. PRIMARY CARE PHYSICIAN Jazmine Portillo M.D. REASON FOR CONSULT GI bleed. HISTORY OF PRESENT ILLNESS The patient is a 75-year-old male with a past medical history of coronary artery disease, hypertension, hyperlipidemia, diabetes, peripheral vascular disease, COPD, non-small cell lung cancer, chronic kidney disease, obstructive sleep apnea, and peptic ulcer disease. The patient has presented to the emergency department with increasing shortness of breath, weakness and possible GI bleed. The patient reports having very dark stool for the past day or two prior to admission. The patient was hospitalized here at [facility] less than 2 weeks ago with similar complaints. He subsequently underwent EGD, which showed hiatal hernia, Best's esophagus, diffuse gastritis, otherwise no potential source of upper GI bleed. Upon admission, his hemoglobin was noted to be 8.5, down from 9.1 less than 2 weeks ago. There is no history of nausea, vomiting, abdominal pain, change in bowel habits, hematemesis or hematochezia. PAST MEDICAL HISTORY Coronary artery disease, status post coronary artery bypass grafting, hypertension, hyperlipidemia, diabetes, peripheral vascular disease, status post aortobifemoral popliteal bypass, COPD, chronic respiratory failure, on home oxygen, non-small cell lung cancer, status post wedge resection and radiation treatment, chronic anemia, chronic kidney disease, glaucoma, peptic ulcer disease. PAST SURGICAL HISTORY Coronary artery bypass grafting, aortofemoral popliteal bypass, wedge resection of lung, cholecystectomy, inguinal hernia repair. ALLERGIES Iodine and morphine. HOME MEDICATIONS Norvasc, aspirin, Plavix, fenofibrate, furosemide, Amaryl, hydralazine, hydrocodone, acetaminophen, Avapro, lovastatin, Lopressor, nitroglycerin, Onglyza, pantoprazole and Zoloft. Unit #: [id number] #: [id number] Patient: NASH ALMEIDA SOCIAL HISTORY The patient is , lives at home with his . He is a reformed smoker. There is no history of alcohol or illicit drug use. FAMILY HISTORY None for colon or pancreatic cancer or liver disease. REVIEW OF SYSTEMS Complete review of system is negative except for pertinent positive findings as noted in HPI. The rest of review of system is negative. PHYSICAL EXAMINATION GENERAL: The patient is awake, alert, and oriented, in no acute distress. VITAL SIGNS: Stable with temperature of 97.6, blood pressure 137/43, heart rate 59, respirations 28. HEENT: The patient does have mild pallor. No scleral icterus. No lymphadenopathy. The patient does have trace pedal edema. LUNGS: Decreased breath sounds bilaterally. Mildly labored breathing. CARDIOVASCULAR: Regular rate and rhythm. ABDOMEN: Soft and nontender. Liver and spleen not palpable. Bowel sounds are normal. DIAGNOSTIC STUDIES LABORATORY RESULTS: BMP notable for glucose 297, BUN 40, creatinine 2.4, INR 1.1. CBC notable for WBC of 15.2, hemoglobin 7.3, down from 8.5 upon admission, hematocrit 23.2, MCV 81.3, platelets 339. Urinalysis showed 3+ protein, positive glucose, 2+ blood, 5 to 10 rbc's. Troponin was noted to be 0.9, BNP 704. IMAGING STUDIES: Chest x-ray showed bilateral airspace disease, significantly worse on the right. Hemothorax, concerning for worsening pneumonia. ASSESSMENT 1. Anemia of chronic disease and chronic gastrointestinal blood loss. 2. Acute myocardial infarction. 3. Chronic respiratory failure. 4. Chronic kidney disease. PLAN Anemia is multifactorial in this patient including anemia of chronic disease and chronic GI blood loss. Repeat endoscopic evaluation is not indicated at this time as potential upper GI bleed is unlikely and the patient has more pressing issues including acute myocardial infarction. The patient is scheduled for heart catheterization in the morning. Recommend continue to monitor hemoglobin and transfuse as needed. The patient and plan of care were discussed in detail with Dr. Cr. Further recommendations to follow. Thank you very much for asking us to see this patient. We appreciate the consult. Dictated by... THEODORE Dow/mirella Unit #: [id number] #: [id number] Patient: NASH ALMEIDA TD: 10/23/2016 03:19 JOB #: [id number] CC: Jazmine Portillo M.D. CONSULTATION REPORT Page 1 of 1 X X CONSULTATION REPORT
--- NOTE | ~2016-10-19 | CR72 ---
[facility] A Service of [facility] & [facility] RADIOLOGY TEXT RESULTS PATIENT: NASH ALMEIDA LOCATION: [place] [id number] : 38 UNIT #: [id number] AGE: [address]: Rj Drake MD SEX: M ORDER DR: [id number] [facility] [address] [facility]. [place], [place] [address] [id number] I MR#: [id number] Acc #: [id number] NAME: NASH ALMEIDA. : 1940 SEX: M STUDY DATE/TIME: 10/20/2016 12:45 UNIT: [facility] ROOM: [facility] STUDY DESCRIPTION: CR Chest Single View Portable Attending Physician: Rj Drake M.D. Ordering Physician: Zach Tavera M.D. Primary Care Physician: Gina Townsend M.D. MEDICAL IMAGING REPORT This report is preliminary unless electronic signature is present EXAM Portable chest radiograph. INDICATIONS Respiratory distress that started today. FINDINGS Comparison made to prior examination from earlier today. Cardiomediastinal silhouette is unchanged. Extensive alveolar interstitial infiltrates are seen throughout both lungs, right greater than left. I am not convinced they have changed significantly when compared to the earlier examination. Patient does have small bilateral pleural effusions. No pneumothorax is seen. Patient is status post median sternotomy with coronary artery bypass grafting. Dictated by... Maile Gottlieb M.D. THIS IS AN ELECTRONICALLY VERIFIED REPORT Maile Gottlieb M.D. at 10/22/2016 5:14 PM AFF/cs TD: 10/20/2016 18:34 JOB #: [id number] MEDICAL IMAGING REPORT Page 1 of 1 COPY
--- NOTE | ~2016-10-19 | CR72 ---
[facility] A Service of [facility] & [facility] RADIOLOGY TEXT RESULTS PATIENT: NASH ALMEIDA LOCATION: [address] : 38 UNIT #: [id number] AGE: [address]: Mukund Escobedo MD SEX: M ORDER DR: [id number] [facility] [address] [facility]. [place], [place] [address] [id number] I MR#: [id number] Acc #: [id number] NAME: NASH ALMEIDA. : 1940 SEX: M STUDY DATE/TIME: 10/26/2016 4:57 UNIT: [facility] ROOM: [facility] STUDY DESCRIPTION: CR Chest Single View Portable Attending Physician: Mukund Escobedo M.D. Ordering Physician: Trey Prince M.D. Primary Care Physician: Gina Townsend M.D. MEDICAL IMAGING REPORT This report is preliminary unless electronic signature is present EXAM Portable chest, 10/26. HISTORY Respiratory failure. Ventilator patient. FINDINGS AP portable chest compared with 10/25/2016. ET tube in good position. Right IJ line tip near the right atrial level. Feeding tube in the stomach. Cardiomegaly is stable. Bilateral diffuse infiltrates are again seen. These are stable to minimally improved and may reflect diffuse pneumonia or edema. There is probably a trace amount of pleural fluid on both sides of the chest. No pneumothorax. Dictated by... Mathew Dorantes Jr., M.D. THIS IS AN ELECTRONICALLY VERIFIED REPORT Mathew Dorantes Jr., M.D. at 10/26/2016 3:48 PM ANDRE/akil TD: 10/26/2016 14:03 JOB #: [id number] MEDICAL IMAGING REPORT Page 1 of 1 COPY
--- NOTE | ~2016-10-19 | FU ---
[facility] Nutrition Therapy DATE: 10/23/16 Patient: NASH ALMEIDA Physician: QASIM Address: [address] Room/Bed: [address], Zip: [place] [address] Admit Date: 10/19/16 Date of : [birth year] Height: 5 7 Weight: 199 90.5 NUTRITION MONITORING/FOLLOW-UP: Reason: ADDENDUM TO ENTERAL NUTRITION RECOMMENDATIONS FROM 10/22. PT IS NOW RECEIVING PROPOFOL. Estimated Nutrition Needs: 6458-5236 kcals (15-20 kcals/ kg) 92-120 grams protein (1.0-1.3 grams/kg) Assessment: Chart reviewed, events noted. Pt is now receiving propofol @ 15.3 mL/hr, which is providing an additional 404 kcals from lipids at this time. Pt is currently receiving Nepro @ 30 mL/hr with no tolerance issues reported by RN. Please refer to full RD nutrition assessment from yesterday 10/22. RD will provide updated recommendations below. Recommendations: 1. While the pt is receiving propofol, decrease Nepro to 25 mL/hr and add 30 mL Prostat TID to provide: 1784 kcals/ 94 grams protein/ 438 mL free H20 2. When propofol is discontinued, increase Nepro by 10 mL q 4 hrs as tolerated to 40 mL/hr and decrease Prostat to 30 mL once daily to provide: 1828 kcals/ 93 grams protein/ [address] will continue to follow this patient's hospital course per protocol. Respectfully, KYRA DOHERTY RD, LD Food and Nutritional Services [facility] cc: client file
--- NOTE | ~2016-10-19 | CR72 ---
[facility] A Service of [facility] & [facility] RADIOLOGY TEXT RESULTS PATIENT: NASH ALMEIDA LOCATION: [place] [address] : 38 UNIT #: [id number] AGE: [address]: Rj Drake MD SEX: M ORDER DR: [id number] [facility] [address] [facility]. [place], [place] [address] [id number] I MR#: [id number] Acc #: [id number] NAME: NASH ALMEIDA. : 1940 SEX: M STUDY DATE/TIME: 10/21/2016 5:37 UNIT: [facility] ROOM: [facility] STUDY DESCRIPTION: CR Chest Single View Portable Attending Physician: Rj Drake M.D. Ordering Physician: Zach Tavera M.D. Primary Care Physician: Gina Townsend M.D. MEDICAL IMAGING REPORT This report is preliminary unless electronic signature is present EXAM Portable chest INDICATION CHF, shortness of air today. PROCEDURE Frontal view chest. COMPARISON 10/20/2016. FINDINGS Heart size unchanged. Patchy alveolar opacity is stable. No visible pneumothorax. IMPRESSION Stable. Dictated by... Per Payan M.D. THIS IS AN ELECTRONICALLY VERIFIED REPORT Per Payan M.D. at 10/21/2016 10:27 PM JENNIFER/jermaine TD: 10/21/2016 09:09 JOB #: [id number] MEDICAL IMAGING REPORT Page 1 of 1 COPY
--- NOTE | ~2016-10-19 | CR72 ---
[facility] A Service of [facility] & [facility] RADIOLOGY TEXT RESULTS PATIENT: NASH ALMEIDA LOCATION: [place] [address] : 38 UNIT #: [id number] AGE: [address]: Mukund Escobedo MD SEX: M ORDER DR: [id number] [facility] [address] [facility]. [place], [place] [address] [id number] I MR#: [id number] Acc #: [id number] NAME: NASH ALMEIDA. : 1940 SEX: M STUDY DATE/TIME: 11/02/2016 4:58 UNIT: [facility] ROOM: [facility] STUDY DESCRIPTION: CR Chest Single View Portable Attending Physician: Mukund Escobedo M.D. Ordering Physician: Rodney Justice M.D. Primary Care Physician: Gina Townsend M.D. MEDICAL IMAGING REPORT This report is preliminary unless electronic signature is present EXAM Portable chest INDICATION Respiratory failure, follow up edema, endotracheal tube removal. FINDINGS This portable view of the chest is compared with 10/30/2016. The endotracheal tube has been removed. There is mild diffuse interstitial prominence which is stable. The heart size is within normal limits. A right central venous catheter is stable. Dictated by... Stanley Suarez M.D. THIS IS AN ELECTRONICALLY VERIFIED REPORT Stanley Suarez M.D. at 11/02/2016 1:36 PM NATHALIA/jermaine TD: 11/02/2016 13:22 JOB #: [id number] MEDICAL IMAGING REPORT Page 1 of 1 COPY
--- NOTE | ~2016-10-19 | A ---
[facility] Nutrition Therapy DATE: 10/22/16 Patient: NASH ALEMIDA Physician: QASIM Address: [address] Room/Bed: [address], Zip: [place] [address] Admit Date: 10/19/16 Date of : 38 Height: 5 7 Weight: 197 89.5 NUTRITIONAL ASSESSMENT: REASON: Enteral nutrition recommendations 75 yo male admitted for SOA, GI bleed PMH: CAD, HTN, HLD, DM, PVD, CABG, non-small cell lung cancer, hiatal hernia, Best's esophagus, cholecystectomy Anthropometrics: Ht: 5'7" Adm wt: 92 kg BMI: 31.8 IBW: 67.3 kg Labs: Gluc 223 BUN 76 Creat 3.8 Alb 2.4 Phos 5.9-(10/21) Accuchecks 214 GFR 14.4 Meds: Folic acid, furosemide, solu-medrol, lipitor, novolog, lopressor, protonix, vitamin B12 I/O & Bowel function: 1406/1245, last BM 10/21 Skin Integrity: Bruise right leg/ BUE Edema: None noted Estimated Nutrition Needs: 6870-5340 kcals (15-20 kcals/kg) 92-120 grams protein (1-1.3 grams/kg) Diet: Full liquid (will be NPO since the pt is being intubated) Assessment: Chart reviewed, events noted. 75 yo male admitted for SOA and GI bleed on 10/19. Pt has been short of air on BiPAP and is being intubated this morning. Pt has been on a full liquid diet; however, family and RN report that he has been unable to take the BiPAP off for long enough to eat. RD spoke with the pt's , who reports that his intake has been poor for two weeks since he has been in and out of the hospital. The pt's suspects that the pt weighs ~200# now with weight loss d/t illness. RN requested enteral nutrition recommendations. Significant PMH and labs noted above. Pt's renal labs seem to be worsening. See recommendations below. Dx: Inadequate protein-energy intake RT respiratory distress AEB minimal to no intake reported by the pt's family and RN, weight loss reported by the pt's (unknown amount). Intervention: [facility] Nutrition Therapy DATE: 10/22/16 Patient: NASH ALMEIDA Physician: QASIM Address: [address] [place] [address] DRIVE Room/Bed: [facility] [facility], Zip: [place] [address] Admit Date: 10/19/16 Date of : 38 Height: 5 7 Weight: 197 89.5 1. Enteral nutrition Monitoring, Evaluation and Goals: 1. Enteral nutrition; initiate, tolerate >80% goal volume x 24 hrs 2. Improve labs; glucose, BUN, creat, phos, GFR 3. Weight; prevent unintentional weight loss Recommendations: 1. Once medically feasible when enteral access is obtained, recommend initiating enteral nutrition with Nepro @ 20 mL/hr + 30 mL Prostat once daily. Increase by 10 mL q 8 hrs as tolerated to goal of 40 mL/hr + 30 mL Prostat once daily to provide: 1828 kcals/ 93 grams protein/ 701 mL free H20 *If the pt's renal labs/ electrolytes improve, will consider switching to an alternative enteral formula 2. Optimize the pt's insulin regimen noting hyperglycemia. 3. If the pt is extubated, recommend VIDEO GAME SCRIPT WRITER evaluation. Advance diet per VIDEO GAME SCRIPT WRITER recommendations + HH/CC diet restriction. Pt is at moderate-severe nutritional risk. RD will follow hospital course per protocol. Respectfully, KYRA DOHERTY RD, LD Food and Nutritional Services [facility] cc: client file
--- NOTE | ~2016-10-19 | CR72 ---
[facility] A Service of [facility] RADIOLOGY TEXT RESULTS PATIENT: NASH ALMEIDA [facility] UNIT #: [id number] AGE: [address]: Rj Drake MD SEX: M ORDER DR: [id number] [facility] [address] [place], [place] [address] [id number] I MR#: [id number] Acc #: [id number] NAME: NASH ALMEIDA. : 1940 SEX: M STUDY DATE/TIME: 10/19/2016 14:10 UNIT: C3A PCU ROOM: [facility] STUDY DESCRIPTION: CR Chest Single View Portable Attending Physician: Brooklyn Schulz M.D. Ordering Physician: Shivam Haley M.D. Primary Care Physician: Gina Townsend M.D. MEDICAL IMAGING REPORT This report is preliminary unless electronic signature is present EXAM AP portable chest, 10/19/2016 at 14:10 HISTORY Shortness of breath today. History of lung cancer with radiation therapy completed April 2013. Additional history of hypertension, congestive heart failure, previous CABG. Former smoker. COMPARISON PA and lateral chest 10/10/2016. FINDINGS Significant interval worsening in right lung airspace disease in the mid, upper and lower lung zones. Findings are favored to represent changes of worsening pneumonia. Faint reticular interstitial-type infiltrates in the left mid and lower lung zone are thought to be stable. Stable cardiac enlargement. Signs of median sternotomy CABG. No pleural effusion or pneumothorax is seen. IMPRESSION 1. Bilateral airspace disease, significantly worse in the right hemithorax compared to 10/10/2016. Correlate clinically for developing worsening pneumonia. 2. Stable cardiomegaly. Dictated by... Annalise Yanes M.D. THIS IS AN ELECTRONICALLY VERIFIED REPORT Annalise Yanes M.D. at 10/21/2016 2:17 PM LLH/pcl [facility] A Service of [facility] RADIOLOGY TEXT RESULTS PATIENT: NASH ALMEIDA [address] 38 UNIT #: [id number] AGE: [address]: Rj Drake MD SEX: M ORDER DR: TD: 10/19/2016 21:54 JOB #: [id number] MEDICAL IMAGING REPORT Page 1 of 1 COPY
--- NOTE | ~2016-10-19 | CR72 ---
[facility] A Service of [facility] RADIOLOGY TEXT RESULTS PATIENT: NASH ALMEIDA LOCATION: [place] [address]14 : 38 UNIT #: [id number] AGE: [address]: Rj Drake MD SEX: M ORDER DR: [id number] [facility] [address] [facility]. [place], [place] [address] [id number] I MR#: [id number] Acc #: [id number] NAME: NASH ALMEIDA : 1940 SEX: M STUDY DATE/TIME: 10/22/2016 4:47 UNIT: [facility] ROOM: [facility] STUDY DESCRIPTION: CR Chest Single View Portable Attending Physician: Rj Drake M.D. Ordering Physician: Shashi Harp M.D. Primary Care Physician: Gina Townsend M.D. MEDICAL IMAGING REPORT This report is preliminary unless electronic signature is present EXAM Portable chest INDICATION Shortness of air. Followup. PROCEDURE Frontal view chest. COMPARISON 10/21/2016. FINDINGS Heart size unchanged. Diffuse interstitial and alveolar opacities are unchanged. No visible pneumothorax. IMPRESSION Stable. Dictated by... Per Payan M.D. THIS IS AN ELECTRONICALLY VERIFIED REPORT Per Payan M.D. at 10/22/2016 10:27 PM JENNIFER/jermaine TD: 10/22/2016 05:56 JOB #: [id number] MEDICAL IMAGING REPORT Page 1 of 1 COPY
--- NOTE | ~2016-10-19 | FU ---
[facility] Nutrition Therapy DATE: 11/02/16 Patient: NASH ALMEIDA Physician: QASIM Address: [facility] [address] Room/Bed: [address] [place] [address], Zip: [place] [address] Admit Date: 10/19/16 Date of : 38 Height: 5 7 Weight: 185 84 NUTRITION MONITORING/FOLLOW-UP: Reason: PT SEEN FOR FOLLOW-UP DX: GI BLEED, SOA, PNA vs. CHF Anthropometrics: 5'7", WT: 185# (84 KG), BMI: 29.0 -ADMIT WEIGHT: 200# Labs: BUN: 70, CREAT: 4.7, CA+:8.0, ALB: 2.3, NA+:133, GFR: 11.1 Meds: FLOMAX, NOVOLOG, LEVEMIR, FOLIC ACID, SOLU-MEDROL, PROTONIX I&O's: 1658/733, 6 BMs NOTED Skin: COCCYX PRESSURE ULCER NOTED Estimated Nutrition Needs: 6377-1562 KCAL 92-120 G PRO Assessment: CHART REVIEWED AND EVENTS NOTED. PT SEEN FOR FOLLOW-UP. PT OUT OF ROOM FOR PROCEDURE AT TIME OF VISIT. RD SPOKE TO WHO REPORTS PT TO HAVE GOOD PO INTAKE AND APPETITE, NO C/O N/V/D. ADDS HIS APPETITE IS IMPROVING. THIS RD ENCOURAGED ADEQUATE KCAL AND PROTEIN INTAKE, AGREED. REPORTED NO DIET QUESTIONS AT THIS TIME. RD TO REMAIN AVAILABLE. Dx: INADEQUATE ORAL INTAKE R/T VENT DEPENDENCE, CURRENT CONDITION AEB NPO STATUS.-RESOLVED. NEW Dx: ALTERED NUTRIENT UTILIZATION R/T PMH AEB NEED FOR THERAPEUTIC DIET ORDER. Intervention: 1. CC+HH DIET 2. HD Monitoring, Evaluation and Goals: 1. ENTERAL NUTRITION; PROVIDE >80% TOTAL GOAL VOLUME-MET/RESOLVED 2. LABS; WNL-NOT MET/IN PROGRESS 3. WEIGHTS; PROMOTE GRADUAL WEIGHT LOSS-IN PROGRESS/NOT MET (WEIGHTS HAVE FLUCTUATED SINCE ADMIT) 4. GI; PROMOTE REGULAR GI FUNCTION-IN PROGRESS NEW GOALS: 1. ORAL INTAKE; CONSUME/TOLERATE >50% OF MEALS [facility] Nutrition Therapy DATE: 11/02/16 Patient: NASH ALMEIDA Physician: QASIM Address: [facility] [address] Room/Bed: [facility] [facility], Zip: [place] [address] Admit Date: 10/19/16 Date of : 38 Height: 5 7 Weight: 185 84 MONITOR: -PO INTAKE/APPETITE -WEIGHTS Recommendations: 1. CONTINUE CURRENT DIET ORDER. ENCOURAGE COMPLIANCE OF DIET ORDER 2. RD TO F/U ON EDUCATION NEEDS RD WILL F/U PER PROTOCOL PT IS MILDLY COMPROMISED Respectfully, NAYELI JURADO MS, RD, LD Food and Nutritional Services [facility] cc: client file
--- NOTE | ~2016-10-19 | CO ---
Unit #: [id number] #: [id number] Patient: NASH MORATAYA [id number] [address] [place], [place] [address] [id number] I MR#: [id number] NAME: NASH MORATAYA. ROOM: [facility] Age: 75 Sex: M Admission Date: 10/19/2016 : 1940 Attending Physician: Rj Drake M.D. Primary Care Physician: Gina Townsend M.D. CONSULTATION REPORT HISTORY OF PRESENT ILLNESS Mr. Morataya is a 75-year-old white male, who was admitted to the hospital in mid September with GI bleed, anemia, found to have hiatal hernia, Best esophagus, moderate pre-pyloric antral gastritis. He also has a history of dyspnea, which was felt secondary to anemia. He does have some mild to moderate obstructive lung disease; non-small cell lung cancer, status post left lower lobe resection and radiation to right super hilar mass which was felt to represent recurrence 2 years ago. He has a history of obstructive sleep apnea, previously noncompliant with CPAP and wished to undergo evaluation, history of type 2 diabetes mellitus, hyperlipidemia, peripheral artery disease. He was hospitalized last time and was hypoxemic. He had some mild bibasilar infiltrates felt secondary to some CHF I think. He was discharged on oxygen. Prior to discharge, a ventilation perfusion lung scan was done to rule out possibility of PE, it was low probability. He is readmitted. His says he really never got better at home. He was remained short of breath. He had no fevers or purulent sputum or chills. Unaware of any chest pain. In the emergency room, his blood pressure was 134/73, O2 saturation on 2 L was 90%. Hemoglobin was 8.5, white blood cell count was 16.5. Chest x-ray shows right-sided infiltrates, less so on left-sided. He was treated with vancomycin, tobramycin, and Zosyn given Solu-Medrol and Protonix and also started on Zithromax. His strep urine antigen was negative. His Legionella antigen was negative. He was noted to have an elevated troponin of 0.9. His BNP was 704. His creatinine was 2.1 on admission, which is relatively stable. PAST MEDICAL HISTORY Significant for, 1. Recent admission for GI bleed with some antral gastritis. 2. History of coronary artery disease, status post coronary artery bypass grafting, followed by Dr. Yates. 3. History of hypertension. 4. Hyperlipidemia. 5. Diabetes. 6. Mild to moderate COPD. 7. Obstructive sleep apnea, noncompliant, intolerant to CPAP, currently wanting to undergo re-evaluation. 8. Chronic respiratory failure, maintained on 2 L. 9. Non-small cell lung cancer, status post left lower lobe resection and subsequent right-sided radiation therapy 2 years ago for possible recurrence. 10. History of chronic anemia. 11. Chronic kidney disease. 12. Glaucoma. Unit #: [id number] #: [id number] Patient: NASH MORATAYA 13. Peptic ulcer disease. PAST SURGICAL HISTORY Coronary artery bypass grafting, aorto femoral-popliteal bypass, wedge resection of lung left lower lobe, history of cholecystectomy, and inguinal hernia repair. ALLERGIES Iodine and morphine. HOME MEDICATIONS Norvasc, aspirin, Plavix, fenofibrate, Lasix, Amaryl, hydralazine, hydrocodone, APAP, Avapro, Timoptic, lovastatin, Lopressor, nitroglycerin, Onglyza, Protonix, and Zoloft. SOCIAL HISTORY Lives with . Reformed smoker. No alcohol. No illicit drugs. Full code. REVIEW OF SYSTEMS Ten point system, otherwise negative. FAMILY HISTORY Positive for coronary artery disease. PHYSICAL EXAMINATION VITAL SIGNS: Blood pressure 137/43, pulse 59, respiratory rate 20, afebrile. HEENT: Normocephalic and atraumatic. Pupils are equal, round, and reactive. Sclerae nonicteric. Nasal passages and oral cavity, not examined, the patient on full face BiPAP. NECK: Supple. Trachea midline. No cervical or supraclavicular lymphadenopathy. LUNGS: Reveal crackles bilaterally and mild expiratory wheeze. CARDIAC: Heart sounds distant. Regular rate. Tachycardia. Could not appreciate murmur, rub, or gallop. ABDOMEN: Nontender. Bowel sounds present. No hepatosplenomegaly. EXTREMITIES: Without clubbing, cyanosis, or edema. Apparently his legs were swollen prior to admission. DIAGNOSTIC STUDIES LABORATORY RESULTS: As noted. Arterial blood gases, pH of 7.42, pCO2 of 33, pO2 of 68 on 60% and BiPAP 12/6. IMPRESSION 1. Bilateral infiltrates consistent with congestive heart failure favored over pneumonia. 2. Acute on chronic respiratory failure. 3. Non-ST elevated myocardial infarction. 4. Acute myocardial infarction. 5. Chronic obstructive pulmonary disease. 6. obstructive sleep apnea, noncompliant with CPAP, wishes re-evaluation. 7. Hypertension. 8. Diabetes. 9. Anemia of chronic gastrointestinal bleed. 10. Non-small cell lung cancer, status post resection and subsequent radiation therapy. Unit #: [id number] #: [id number] Patient: NASH MORATAYA PLAN Agree with diuresis, preload and afterload reduction, cardiac cath when stable. Agree with continuing antibiotics for now. If there is significant response to diuresis, we would consider discontinuing antibiotics. We will also check procalcitonin level. Continue to treat COPD with inhaled bronchodilators, inhaled corticosteroids, and burst steroids, O2 to maintain adequate saturations both with BiPAP and possible high-flow. Further recommendations pending this. Dictated by... Zach Tavera M.D. JAKY/mirella TD: 10/21/2016 03:32 JOB #: [id number] CONSULTATION REPORT Page 1 of 1 X Zach Tavera MD X CONSULTATION REPORT
--- NOTE | ~2016-10-19 | EKG ---
PATIENT: NASH ALMEIDA UNIT #: [id number] Ventricular Rate: 97 BPM Atrial Rate: 97 BPM P-R Interval: 192 ms QRS Duration: 104 ms Q-T Interval: 354 ms QTC Calculation(Bezet): 449 ms P [place]: 38 degrees Calculated R [place]: 26 degrees Calculated T [place]: 166 degrees Diagnosis Line: Normal sinus rhythm Diagnosis Line: Left ventricular hypertrophy Diagnosis Line: Marked ST abnormality, possible lateral Diagnosis Line: subendocardial injury Diagnosis Line: Abnormal ECG Diagnosis Line: When compared with ECG of 05-OCT-2016 14:05, Diagnosis Line: Vent. rate has increased BY 42 BPM Diagnosis Line: Criteria for Septal infarct are no longer Present Diagnosis Line: No significant change was found Diagnosis Line: Confirmed by APOLLO SIMPSON MD ([id number]) on 10/20/2016 Diagnosis Line: 5:46:51 AM INTERPRETING MD: TATIANA SHETH
--- NOTE | ~2016-10-19 | XA75 ---
[facility] A Service of [facility] RADIOLOGY TEXT RESULTS PATIENT: NASH ALMEIDA LOCATION: [address] : 38 UNIT #: [id number] AGE: [address]: Mukund Escobedo MD SEX: M ORDER DR: [id number] [place] [id number] [facility]. [place], [place] [address] [id number] I MR#: [id number] Acc #: [id number] NAME: NASH ALMEIDA. : 1940 SEX: M STUDY DATE/TIME: 10/23/2016 16:52 UNIT: [facility] ROOM: [facility] STUDY DESCRIPTION: XA CVC Non-Tunnel Attending Physician: Mukund Escobedo M.D. Ordering Physician: Mathew Suarez M.D. Primary Care Physician: Gina Townsend M.D. MEDICAL IMAGING REPORT This report is preliminary unless electronic signature is present EXAM Non-tunneled dialysis catheter placement. INDICATION Need for IV access for dialysis in a patient with acute renal insufficiency. PROCEDURE The procedure was explained to the patient's communications representative including risks, benefits, potential complications, and potential for alternative forms of treatment. Informed consent was obtained. Prior to initiating the procedure, a formal time-out procedure was performed. Using all elements of maximal sterile barrier technique, including hand hygiene, caps, sterile gowns, and gloves and masks, the right neck was prepped with 2% chlorhexidine for cutaneous antisepsis and covered with a large sterile sheet. The ultrasound probe was covered with a sterile probe cover and sterile gel was applied. Real time ultrasound guidance was used to localize the right internal jugular vein which was found to be patent and compressible. Hard copy ultrasound image was obtained. After local anesthesia with 1% Xylocaine, a vein was punctured using real time sterile us guidance and an 0.018 guidewire was advanced into the superior vena cava. A micropuncture sheath was placed. An Amplatz wire was advanced into the inferior vena cava. A tract was serially dilated and a new nontunneled dialysis catheter was advanced over the wire and positioned within the right atrium. Following placement of the catheter, it flushed and aspirated easily. Position of the catheter was confirmed with a radiographic image. Total fluoroscopy time was 0.1 minutes and a single fluoroscopic image was obtained. IMPRESSION Technically successful placement of a right internal jugular vein nontunneled dialysis catheter which terminates within the right atrium. [facility] A Service of [facility] & [facility] RADIOLOGY TEXT RESULTS PATIENT: NASH ALMEIDA LOCATION: [address] : 38 UNIT #: [id number] AGE: [address]: Mukund Escobedo MD SEX: M ORDER DR: This catheter is ready for immediate use. Ultrasound and fluoroscopy was used during placement of the catheter and permanent images were saved. Dictated by... Maile Gottlieb M.D. THIS IS AN ELECTRONICALLY VERIFIED REPORT Maile Gottlieb M.D. at 10/26/2016 5:21 PM JORGE/akil TD: 10/26/2016 16:16 JOB #: [id number] MEDICAL IMAGING REPORT Page 1 of 1 COPY
--- NOTE | ~2016-10-19 | CR7 ---
[facility] A Service of [facility] & [facility] RADIOLOGY TEXT RESULTS PATIENT: NASH ALMEIDA LOCATION: [address] : 38 UNIT #: [id number] AGE: [address]: Rj Drake MD SEX: M ORDER DR: [id number] [facility] [address] [facility]. [place], [place] [address] [id number] I MR#: [id number] Acc #: [id number] NAME: NASH ALMEIDA. : 1940 SEX: M STUDY DATE/TIME: 10/22/2016 13:10 UNIT: [facility] ROOM: [facility] STUDY DESCRIPTION: CR Abdomen Single AP View Attending Physician: Rj Drake M.D. Ordering Physician: Zach Tavera M.D. Primary Care Physician: Gina Townsend M.D. MEDICAL IMAGING REPORT This report is preliminary unless electronic signature is present EXAM Abdomen, 10/22. INDICATION Feeding tube placement. FINDINGS Supine view of the abdomen was obtained. Tip of the feeding tube is present in the body of the stomach. Right iliac stent is present. Nonspecific bowel gas pattern is noted. Dictated by... Mathew Dorantes Jr., M.D. THIS IS AN ELECTRONICALLY VERIFIED REPORT Mathew Dorantes Jr., M.D. at 10/23/2016 7:19 AM ANDRE/akil TD: 10/22/2016 17:19 JOB #: [id number] MEDICAL IMAGING REPORT Page 1 of 1 COPY
--- NOTE | ~2016-10-19 | CR72 ---
[facility] A Service of [facility] RADIOLOGY TEXT RESULTS PATIENT: NASH ALMEIDA LOCATION: [address] : [birth year] UNIT #: [id number] AGE: [address]: Mukund Escobedo MD SEX: M ORDER DR: [id number] [place] [id number] [facility]. [place], [place] [address] [id number] I MR#: [id number] Acc #: [id number] NAME: NASH ALMEIDA. : 1940 SEX: M STUDY DATE/TIME: 10/27/2016 5:44 UNIT: [facility] ROOM: [facility] STUDY DESCRIPTION: CR Chest Single View Portable Attending Physician: Mukund Escobedo M.D. Ordering Physician: Trey Prince M.D. Primary Care Physician: Gina Townsend M.D. MEDICAL IMAGING REPORT This report is preliminary unless electronic signature is present EXAM Portable chest HISTORY Respiratory failure, patient on a ventilator for 8 days. Patient has had prior lung resection for lung cancer. COMPARISON 10/26/2016 FINDINGS Tubes and lines remain in satisfactory position, unchanged. No significant change in cardiopulmonary status. Continued diffuse interstitial and alveolar infiltrates, most likely reflecting pulmonary edema. Left-sided volume loss with multiple clips in the left hilar region may reflect prior lung resection. No sizeable effusions. Stable cardiomegaly in the patient post median sternotomy. No pneumothorax. Surgical clips in the left perihilar region also could be related to PRIYA graft and prior CABG. Dictated by... Jigna Peterson M.D. THIS IS AN ELECTRONICALLY VERIFIED REPORT Jigna Peterson M.D. at 10/28/2016 12:28 PM LOLIS/jason TD: 10/27/2016 21:41 JOB #: [id number] [facility] A Service [facility] RADIOLOGY TEXT RESULTS PATIENT: NASH ALMEIDA LOCATION: [facility] : 38 UNIT #: [id number] AGE: [address]: Mukund Escobedo MD SEX: M ORDER DR: MEDICAL IMAGING REPORT Page 1 of 1 COPY
--- NOTE | ~2016-10-19 | HP ---
Unit #: [id number] #: [id number] Patient: NASH ALMEIDA [id number] [address] [place], [place] [address] [id number] MR#: [id number] NAME: NASH ALMEIDA. ROOM: Age: 75 Sex: M Admission Date: 10/19/2016 : 1940 Attending Physician: Shivam Haley M.D. Primary Care Physician: Gina Townsend M.D. HISTORY AND PHYSICAL CHIEF COMPLAINT GI bleed. HISTORY OF PRESENT ILLNESS The patient is a 75-year-old male with past medical history of coronary artery disease, hypertension, hyperlipidemia, diabetes, peripheral vascular disease, COPD, non-small cell lung cancer, anemia, chronic kidney disease, peptic ulcer disease, obstructive sleep apnea, who presented to the emergency department for evaluation of the above. Of note, the patient was hospitalized at [facility] 10/05 through 10/09/2016 for GI bleed. He underwent EGD during that admission that showed hiatal hernia, Best esophagus, diffuse gastritis. He was seen in consultation by Cardiology, Pulmonary, Nephrology, Gastroenterology and Hematology. He was discharged home on Levaquin which he took as prescribed. The patient states that he never returned to baseline. He has been persistently generally weak. He has had shortness of air and dyspnea on exertion with minimal activity. He denies any chest pain, no cough, no fever. He denies any vomiting. He has been constipated. His last bowel movement was within the past 24 hours and noted to be dark. He saw his primary care physician today who advised that he go to the emergency department for further evaluation. In the emergency department, initial pulse and blood pressure were 99 and 134/73 respectively. Oxygen saturation was 90% on 2 liters. Laboratory notable for hemoglobin of 8.5, white blood cell count 16.5. Chest x-ray shows infiltrates concerning for worsening pneumonia. He was given Protonix 40 mg IV, Solu-Medrol 125 mg IV, vancomycin, Zosyn, tobramycin, azithromycin in the emergency department. He is being admitted to [facility] for evaluation and further treatment. PAST MEDICAL HISTORY 1. Admission to [facility] 10/05/2016 for GI bleed. He underwent EGD during that admission. He was also noted to have pneumonia and was discharged home on Levaquin. He also was discharged home on oxygen 2 liters per nasal cannula. 2. Coronary artery disease, status post coronary artery bypass grafting followed by Dr. Yates. 3. Hypertension. 4. Hyperlipidemia. 5. Diabetes. 6. Peripheral vascular disease, status post aortobifemoral popliteal Unit #: [id number] #: [id number] Patient: NASH ALMEIDA bypass. 7. COPD followed by Dr. Tavera. 8. Chronic respiratory failure on 2 liters of oxygen per nasal cannula. 9. History of non-small cell lung cancer, status post wedge resection and radiation treatment. 10. Chronic anemia. 11. Chronic kidney disease. 12. Glaucoma. 13. Peptic ulcer disease. PAST SURGICAL HISTORY 1. Coronary artery bypass grafting. 2. Aortofemoral popliteal bypass. 3. Wedge resection of the lung. 4. Cholecystectomy. 5. Inguinal hernia repair. ALLERGIES 1. Iodine. 2. Morphine. HOME MEDICATIONS 1. Norvasc 10 mg daily. 2. Aspirin 81 mg two tablets b.i.d. 3. Plavix 75 mg daily. 4. Fenofibrate 160 mg h.s. 5. Furosemide 40 mg b.i.d. 6. Amaryl 2 mg b.i.d. 7. Hydralazine 50 mg b.i.d. 8. Hydrocodone/acetaminophen 5/325 t.i.d. p.r.n. 9. Avapro 300 mg daily. 10. Timoptic ophthalmic every morning. 11. Lovastatin 20 mg daily. 12. Lopressor 25 mg b.i.d. 13. Nitroglycerin 0.4 mg p.r.n. 14. Onglyza 5 mg daily. 15. Pantoprazole 40 mg b.i.d. 16. Zoloft 50 mg daily. SOCIAL HISTORY The patient lives with his . He quit smoking. There is no alcohol use. He walks without assistance. His code status is a FULL CODE. FAMILY HISTORY Notable for his mother having a myocardial infarction at the age of 72. His father of a myocardial infarction at the age of 54. REVIEW OF SYSTEMS A complete review of systems is negative except as indicated in the HPI. PHYSICAL EXAMINATION VITAL SIGNS: Temperature 98.4, pulse 99, respirations 18, blood pressure 134/73, oxygen saturation 90% on 2 liters. GENERAL: The patient is a male who is awake and alert. HEENT: Head is atraumatic. Mucous membranes are moist. NECK: Supple. Trachea is midline. LUNGS: Decreased breath sounds bilaterally. Breathing is mildly labored with conversation. Unit #: [id number] #: [id number] Patient: NASH ALMEIDA HEART: Regular rate and rhythm. ABDOMEN: Soft, nontender. Bowel sounds present in all four quadrants. EXTREMITIES: Nontender with no pedal edema. NEUROLOGIC: Patient is awake and alert. He follows commands. He is moving all extremities. PSYCHIATRIC: Mood and affect are normal. Patient is cooperative. SKIN OF EXAMINED AREAS: Warm and dry. DIAGNOSTIC STUDIES LABORATORY: INR is 1.1. Complete blood count notable for white blood cell count 16.5, hemoglobin 8.5, hematocrit 26. BNP 704. Comprehensive metabolic panel notable for a glucose of 211, BUN 31, creatinine 2.1, albumin 2.8, lipase 19. IMAGING: Chest x-ray shows infiltrates concerning for worsening pneumonia. ASSESSMENT The patient is a 75-year-old male with: 1. Healthcare-associated pneumonia. The patient received vancomycin, Zosyn, tobramycin and azithromycin in the emergency department. He failed treatment with Levaquin for pneumonia. 2. Chronic respiratory failure on 2 liters of oxygen per nasal cannula. 3. Sepsis. 4. Chronic obstructive pulmonary disease. The patient received 125 mg of Solu-Medrol in the emergency department. 5. History of non-small cell lung cancer, status post wedge resection and radiation followed by Dr. Jacinto. 6. Obstructive sleep apnea. Noncompliant with CPAP. 7. Gastrointestinal bleed. The patient had EGD earlier this month that showed hiatal hernia, Best esophagus, antral diffuse gastritis. The plan was for outpatient colonoscopy with Dr. Cr. The patient received 40 mg of Protonix in the emergency department. 8. Gwusb-by-pcldnae anemia. The patient's hemoglobin was 9 on 10/10/2016, it is 8.5 today. 9. Chronic kidney disease. The patient's creatinine was 1.9 on 10/10/2016, it is 2.1 today. 10. Hypertension. 11. Hyperlipidemia. 12. Diabetes. 13. Peripheral arterial disease, status post aortofemoral popliteal bypass. 14. Peptic ulcer disease. 15. Coronary artery disease, status post coronary artery bypass grafting. 16. Former smoker. PLAN 1. Admit to intermediate level. 2. Clear liquid diet for possible endoscopy. 3. Supplemental oxygen. 4. DuoNeb. 5. Solu-Medrol 80 mg IV q.12 h. 6. Blood cultures x2. 7. Sputum culture and sensitivity. 8. Procalcitonin level. 9. Streptococcal and legionella urine antigens. 10. Vancomycin IV, tobramycin IV, Zosyn IV for healthcare-associated pneumonia pending further workup. Unit #: [id number] #: [id number] Patient: NASH ALMEIDA 11. Sepsis protocol with STAT lactic acid and repeat. 12. Consult Dr. Tavera regarding healthcare-associated pneumonia. 13. Check EKG and cardiac enzymes if not already done. 14. Protonix. 15. Consult Dr. Cr regarding GI bleed and possible need for endoscopy. 16. Low-dose sliding scale insulin with Accu-Cheks. 17. Hemoglobin and hematocrit q.6 h. Will plan to transfuse for hemoglobin less than 8 due to history of coronary artery disease. 18. SCDs for DVT prophylaxis. 19. Repeat labs in the morning. 20. Additional workup and consultants based on above. Dictated by Leanne Robertson/arianna TD: 10/19/2016 16:09 JOB #: [id number] HISTORY AND PHYSICAL Page 1 of 1 X Brooklyn Schulz MD X HISTORY AND PHYSICAL
--- NOTE | ~2016-10-19 | CR72 ---
[facility] A Service of [facility] RADIOLOGY TEXT RESULTS PATIENT: NASH ALMEIDA LOCATION: [place] [address] : [birth year] UNIT #: [id number] AGE: [address]: Rj Drake MD SEX: M ORDER DR: [id number] [facility] [address]. [place], [place] [address] [id number] I MR#: [id number] Acc #: [id number] NAME: NASH ALMEIDA. : 1940 SEX: M STUDY DATE/TIME: 10/24/2016 4:57 UNIT: [facility] ROOM: [facility] STUDY DESCRIPTION: CR Chest Single View Portable Attending Physician: Rj Drake M.D. Ordering Physician: Zach Tavera M.D. Primary Care Physician: Gina Townsend M.D. MEDICAL IMAGING REPORT This report is preliminary unless electronic signature is present EXAM Single view chest INDICATIONS Shortness of air. Respiratory failure. TECHNIQUE Single portable AP view of the chest COMPARISON 10/23/2016 FINDINGS Support lines and tubes remain in place. There is a new right IJ central line terminating over the right atrium. Bilateral airspace opacities are slightly improved. No pneumothorax. IMPRESSION 1. Interval placement of a right IJ central line with tip in the SVC. No pneumothorax. 2. Slight improvement in bilateral airspace opacities. Dictated by... Richard Dougherty M.D. THIS IS AN ELECTRONICALLY VERIFIED REPORT Richard Dougherty M.D. at 10/25/2016 1:02 AM ZARINA/avery TD: 10/24/2016 17:55 JOB #: [id number] [facility] A Service [facility] RADIOLOGY TEXT RESULTS PATIENT: NASH ALMEIDA LOCATION: [place] [address] : [birth year] UNIT #: [id number] AGE: [address]: Rj Drake MD SEX: M ORDER DR: MEDICAL IMAGING REPORT Page 1 of 1 COPY
--- NOTE | ~2016-10-19 | XA93 ---
[facility] A Service of [facility] RADIOLOGY TEXT RESULTS PATIENT: NASH ALMEIDA LOCATION: [facility] 559- : 38 UNIT #: [id number] AGE: [address]: FLORESITA AGARWAL V SEX: M ORDER DR: [id number] [facility] [address]. [place], [place] [address] [id number] I MR#: [id number] Acc #: [id number] NAME: NASH ALMEIDA. : 1940 SEX: M STUDY DATE/TIME: 11/06/2016 10:32 UNIT: C5 ROOM: [facility] STUDY DESCRIPTION: XA CVC Tunneled WO Pump/Port Attending Physician: Floresita Agarwal Ordering Physician: Robinson Watts Jr., M.D. Primary Care Physician: Gina Townsend M.D. MEDICAL IMAGING REPORT This report is preliminary unless electronic signature is present EXAM Tunneled dialysis catheter insertion, 11/06/2016. CLINICAL HISTORY Renal failure requiring dialysis. PROCEDURE Informed consent was obtained. Fentanyl and Versed were administered for IV conscious sedation with hemodynamic monitoring provided by the nursing staff throughout the procedure. Total sedation time 15 minutes. The study was performed with standard sterile technique, including sterile preparation and barrier draping, caps, masks, as well as sterile gowns and gloves. Real-time sterile ultrasound guidance was used both to guide venous access and confirm patency of the jugular vein. This was accessed with standard Seldinger technique, using a micropuncture set with real-time sterile ultrasound guidance. After venous access and track dilatation and insertion of a peel-away sheath, the tunnelled dialysis catheter was tunneled from the right upper chest wall through a small incision to the venotomy site, and then inserted via the peel-away sheath. The venotomy site was closed with a deep 3-0 Vicryl fascial suture and n-butyl cyanoacrylate glue. The catheter hub was stitched to the skin with silk suture. After blood return was confirmed, the catheter was flushed with saline and packed with heparin solution. There were no complications. FLUOROSCOPY Total fluoro time 0.2 minutes. Single fluoroscopic spot image. IMPRESSION Successful ultrasound and fluoroscopically guided insertion of a tunneled right IJ dialysis catheter without complication. [facility] A Service of [facility] & [facility] RADIOLOGY TEXT RESULTS PATIENT: NASH ALMEIDA LOCATION: [place] [address] : [birth year] UNIT #: [id number] AGE: [address]: FLORESITA AGARWAL V SEX: M ORDER DR: Dictated by... Abraham Bautista M.D. THIS IS AN ELECTRONICALLY VERIFIED REPORT Abraham Bautista M.D. at 11/11/2016 10:05 AM JOSE ANTONIO/avery TD: 11/06/2016 18:30 JOB #: [id number] MEDICAL IMAGING REPORT Page 1 of 1 COPY
--- NOTE | ~2016-10-19 | TOC ---
Unit #: [id number] #: [id number] Patient: NASH ALMEIDA [id number] [address] [place], [place] [address] [id number] I MR#: [id number] NAME: NASH ALMEIDA. ROOM: 559 Age: 75 Sex: M Admission Date: 10/19/2016 : 1940 Attending Physician: Mukund Escobedo M.D. Primary Care Physician: Gina Townsend M.D. TRANSFER OF CARE SUMMARY PRINCIPAL DIAGNOSES THUS FAR 1. Acute on chronic respiratory failure. 2. Non-ST elevation myocardial infarction. 3. Pneumonia. 4. Acute on chronic kidney disease requiring dialysis. 5. Sepsis. 6. Lung cancer. 7. Acute blood loss anemia. 8. Type 2 diabetes. 9. Hypertension. 10. Coronary artery disease. 11. Gastrointestinal bleed. HOSPITAL COURSE The patient is a 75-year-old male with recurrent lung cancer who presented to [facility] Emergency Department secondary to a GI bleed. Apparently, the patient had had a very dark bowel movement the day of admission and saw his primary care provider who advised him to come to the emergency department. In the ED, he was noted to be on his two liters of oxygen and saturating in the low 90s, and a chest x-ray revealed pneumonia. Given that the patient was recently admitted at this facility for GI bleed, it was presumed to be healthcare-associated pneumonia initially. The patient was started on sepsis protocol. A consult to Pulmonary was obtained, as well as consult to GI for the GI bleed. Repeat hemoglobins were scheduled. Subsequently, the patient was noted to have small elevation in his troponin to 0.58. A Cardiology consult was obtained, and his troponin did peak at 0.90. The patient was treated with IV diuretics given BNP elevated at 704. On October 20, the patient's oxygen requirements were noted to rise, and the patient was started on Lovenox for the elevation in his troponins. The patient was placed on BiPAP for his worsening respiratory failure. Shortly thereafter, the patient's creatinine jumped to 3.8 from 2.9. A Renal consult was requested. A 2D echo was ordered. The echo showed ejection fraction of 55% and elevated right ventricular systolic pressure at 40 to 45. The patient's respiratory status continued to worsen. The patient was ultimately intubated secondary to this and taken for bronchoscopy and Unit #: [id number] #: [id number] Patient: NASH ALMEIDA noted to have blood throughout his tracheobronchial tree. There was no active bleeding noted and no endobronchial lesions. At that time, the patient was thought to have pneumonia in addition to transfusion-related acute lung injury. The patient remained intubated and on antibiotics for pneumonia until he was successfully weaned on October 30, 2016. In addition to the above, the patient's creatinine failed to improve and reached a peak of 4.9. Secondary to this, a tunneled dialysis catheter was placed, and the patient was started on acute dialysis. At this time, the patient remains on dialysis for his acute on chronic kidney disease. At this time, patient is saturating 98% on four liters of oxygen and participating with PT/OT. He has an order to transfer to a telemetry bed. The remainder of the Discharge Summary will be dictated by my discharging colleague. Dictated by... Mukund Escobedo M.D. KIYA/brit TD: 11/02/2016 21:57 JOB #: [id number] TRANSFER OF CARE SUMMARY Page 1 of 1 X Mukund Escobedo MD X TRANSFER OF CARE SUMMARY
--- NOTE | ~2016-10-19 | EKG ---
PATIENT: NASH ALMEIDA UNIT #: [id number] Ventricular Rate: 69 BPM Atrial Rate: 69 BPM P-R Interval: 132 ms QRS Duration: 82 ms Q-T Interval: 422 ms QTC Calculation(Bezet): 452 ms P Laurel: 53 degrees Calculated R Laurel: 27 degrees Calculated T Laurel: 172 degrees Diagnosis Line: Normal sinus rhythm Diagnosis Line: ST and T wave abnormality, consider anterolateral Diagnosis Line: ischemia Diagnosis Line: Abnormal ECG Diagnosis Line: When compared with ECG of 19-OCT-2016 16:30, Diagnosis Line: ST no longer depressed in Anterolateral leads Diagnosis Line: Confirmed by KHAI HERNANDEZ MD ([id number]) on Diagnosis Line: 10/21/2016 11:06:59 AM INTERPRETING : DWIGHT
--- NOTE | ~2016-10-19 | CR72 ---
[facility] A Service of [facility] RADIOLOGY TEXT RESULTS PATIENT: NASH ALMEIDA LOCATION: [place] [address] : 38 UNIT #: [id number] AGE: [address]: Rj Drake MD SEX: M ORDER DR: [id number] [place] [id number] [facility]. [place], [place] [address] [id number] I MR#: [id number] Acc #: [id number] NAME: NASH ALMEIDA. : 1940 SEX: M STUDY DATE/TIME: 10/20/2016 1:00 UNIT: [facility] ROOM: [facility] STUDY DESCRIPTION: CR Chest Single View Portable Attending Physician: Rj Drake M.D. Ordering Physician: Shilpi Poole M.D. Primary Care Physician: Gina Townsend M.D. MEDICAL IMAGING REPORT This report is preliminary unless electronic signature is present EXAM Portable chest INDICATION Shortness of air tonight. PROCEDURE Frontal view chest COMPARISON 10/19/2016 FINDINGS Stable cardiomegaly. Slightly increasing alveolar opacities in the right lung and medial left lung base. No appreciable pleural fluid or pneumothorax. IMPRESSION Slightly worsening alveolar opacity throughout the right lung and the medial left lung base suspicious for pneumonia. This appearance could also represent asymmetric edema. Dictated by... Per Payan M.D. THIS IS AN ELECTRONICALLY VERIFIED REPORT Per Payan M.D. at 10/20/2016 9:54 PM JENNIFER/troy TD: 10/20/2016 12:01 JOB #: [id number] MEDICAL IMAGING REPORT [facility] A Service [facility] RADIOLOGY TEXT RESULTS PATIENT: NASH ALMEIDA LOCATION: [place] [address] : 38 UNIT #: [id number] AGE: [address]: Rj Drake MD SEX: M ORDER DR: Page 1 of 1 COPY
--- NOTE | ~2016-10-19 | EKG ---
PATIENT: NASH ALMEIDA UNIT #: [id number] Ventricular Rate: 48 BPM Atrial Rate: 48 BPM P-R Interval: 196 ms QRS Duration: 88 ms Q-T Interval: 478 ms QTC Calculation(Bezet): 427 ms P Paulina: 7 degrees Calculated R Paulina: 5 degrees Calculated T Paulina: 49 degrees Diagnosis Line: Marked sinus bradycardia with sinus arrhythmia Diagnosis Line: Abnormal ECG Diagnosis Line: When compared with ECG of 26-OCT-2016 07:40, Diagnosis Line: Sinus rhythm has replaced Atrial fibrillation Diagnosis Line: Vent. rate has decreased BY 53 BPM Diagnosis Line: ST no longer depressed in Inferior leads Diagnosis Line: ST no longer depressed in Anterolateral leads Diagnosis Line: T wave inversion no longer evident in Lateral Diagnosis Line: leads Diagnosis Line: Confirmed by KHAI HERNANDEZ MD ([id number]) on Diagnosis Line: 11/01/2016 7:49:24 AM INTERPRETING MD: DWIGHT
--- NOTE | ~2016-10-19 | OR ---
Unit #: [id number] #: [id number] Patient: NASH ALMEIDA [id number] [address] [place], [place] [address] [id number] I MR#: [id number] NAME: NASH ALMEIDA. ROOM: [facility] Date of Procedure: 10/22/2016 Admission Date: 10/19/2016 Surgeon: Zach Tavera M.D. : 1940 Attending Physician: Rj Drake M.D. Primary Care Physician: Gina Townsend M.D. OPERATIVE REPORT PROCEDURE PERFORMED Fiberoptic bronchoscopy with bronchoalveolar lavage. INDICATIONS FOR PROCEDURE A 75-year-old white male with a history of coronary artery disease, lung cancer, who presented with bilateral infiltrates, rule out CHF versus atypical pneumonia versus other. PREOPERATIVE DIAGNOSIS Respiratory failure with bilateral infiltrates. POSTOPERATIVE DIAGNOSIS No endobronchial lesions. Bronchoalveolar lavage done. DESCRIPTION OF PROCEDURE Procedure was done while the patient was intubated and supported on the ventilator. Bronchoscope was advanced down the endotracheal tube through the adapter. The endotracheal tube lay about 1.5 cm above the main alanna and main alanna was sharp. There was a small amount of frothy slightly bloody sputum throughout the tracheobronchial tree. There was no active bleeding. Bronchoscope was advanced down the right mainstem. The right mainstem bronchus intermedius, right middle lobe, right lower lobe, and right upper lobe were all widely patent without endobronchial lesions. The bronchoscope was withdrawn to the main alanna and advanced down the left mainstem. The left lower lobe had been resected. The left upper lobe was patent without endobronchial lesions. There was frothy slightly bloody sputum throughout, which was easily suctioned free. The bronchoscope was withdrawn to the main alanna and advanced into the anterior segment right upper lobe and 60 mL of normal saline was instilled with return of about 20 mL. The bronchoscope was then placed in the right middle lobe with installation of 60 mL normal saline with return of approximately 20 to 25 more mL of fluid. The bronchoscope was removed. The patient tolerated the procedure well. O2 saturations remained greater than 90% throughout the procedure. BAL will be sent for appropriate studies. The patient was not given sedation during the procedure, had been sedated prior to the procedure with use of Ativan, etomidate, and fentanyl. Dictated by... Zach Tavera M.D. Unit #: [id number] #: [id number] Patient: NASH ALMEIDA JAKY/mirella TD: 10/23/2016 02:03 JOB #: [id number] OPERATIVE REPORT Page 1 of 1 X Zach Tavera MD X PROCEDURE OPERATIVE NOTE
--- NOTE | ~2016-10-19 | US77 ---
[facility] A Service of [facility] & [facility] RADIOLOGY TEXT RESULTS PATIENT: NASH ALMEIDA LOCATION: [address] : 38 UNIT #: [id number] AGE: [address]: Rj Drake MD SEX: M ORDER DR: [id number] [facility] [address] [place], [place] [address] [id number] I MR#: [id number] Acc #: [id number] NAME: NASH ALMEIDA. : 1940 SEX: M STUDY DATE/TIME: 10/21/2016 18:02 UNIT: [facility] ROOM: [facility] STUDY DESCRIPTION: US Kidney Bilateral Complete Attending Physician: Rj Drake M.D. Ordering Physician: Mathew Suarez M.D. Primary Care Physician: Gina Townsend M.D. MEDICAL IMAGING REPORT This report is preliminary unless electronic signature is present EXAM Bilateral renal ultrasound DATE 10/21/2016 HISTORY Acute renal insufficiency for 1 day with gastrointestinal bleeding. COMPARISON Renal Doppler ultrasound 10/07/2016. Bilateral renal ultrasound 10/07/2016. CT abdomen and pelvis 05/17/2013. FINDINGS Right kidney measures about 12.7 cm and left kidney measures about 11.1 cm in length. Each kidney demonstrates increased cortical echogenicity and very mild bilateral renal cortical thinning, suggesting changes of chronic medical renal disease. No shadowing renal stone or hydronephrosis is identified. Single hypoechoic lesion is demonstrated within the left mid kidney measuring about 2.9 x 2.9 x 2.3 cm. Two hypoechoic lesions are seen within the right kidney, one in the interpolar region measuring 2.0 x 1.4 x 1.3 cm, and another in the lower pole measuring 1.9 x 1.9 x 1.9 cm. The slight variance in size between the current and previous examinations is thought to be due to differences in measurement technique, and these lesions are not thought to be appreciably changed. When correlated to the postcontrast CTA from 05/17/2013, these are favored to represent benign etiology such as hemorrhagic or proteinaceous cysts. There is no hydronephrosis. Urinary bladder is not visualized, decompressed. IMPRESSION 1. Single left, two right hypoechoic renal lesions are unchanged from STS. [facility] A Service of [facility] & [facility] RADIOLOGY TEXT RESULTS PATIENT: NASH ALMEIDA LOCATION: [address] : 38 UNIT #: [id number] AGE: [address]: Rj Drake MD SEX: M ORDER DR: 10/07/2016 and are favored to represent hemorrhagic or proteinaceous cysts, particularly when compared to a more remote CT from 2013. 2. Features of chronic bilateral medical renal disease. 3. No hydronephrosis. Dictated by... Annalise Yanes M.D. THIS IS AN ELECTRONICALLY VERIFIED REPORT Annalise Yanes M.D. at 10/22/2016 10:03 AM SHAYNE/natalie TD: 10/21/2016 23:02 JOB #: [id number] MEDICAL IMAGING REPORT Page 1 of 1 COPY
--- NOTE | ~2016-10-19 | US146 ---
[facility] A Service of [facility] & [facility] RADIOLOGY TEXT RESULTS PATIENT: NASH ALMEIDA LOCATION: [facility] 559-01 : 38 UNIT #: [id number] AGE: [address]: Mukund Escobedo MD SEX: M ORDER DR: [id number] [facility] [address] [place], [place] [address] [id number] I MR#: [id number] Acc #: [id number] NAME: NASH ALMEIDA. : 1940 SEX: M STUDY DATE/TIME: 11/03/2016 15:08 UNIT: [facility] ROOM: [facility] STUDY DESCRIPTION: US Vein Map Hemodial Access Attending Physician: Mukund Escobedo M.D. Ordering Physician: Robinson Watts Jr., M.D. Primary Care Physician: Gina Townsend M.D. MEDICAL IMAGING REPORT This report is preliminary unless electronic signature is present EXAM Bilateral upper extremity venous mapping REASON FOR EXAM End-stage renal disease. FINDINGS The right cephalic vein is noted to be patent throughout its course however, there is an IV indwelling in the upper arm and there is intraluminal debris noted within the cephalic vein at the antecubital fossa but does not appear to be completely occlusive. The left basilic vein is noted to be patent and compressible in the upper arm proximally but is not compressible at the mid and distal upper arm. The basilic vein in the forearm appears to be patent and compressible. The cephalic vein in the left upper extremity at the antecubital fossa appears to be partially compressible with thickened vein wall and evidence of intraluminal debris consistent with thrombus. The left basilic vein appears to be widely patent throughout its course. The right cephalic vein is 3.6 mm proximal forearm, 3.8 mm mid forearm, 3.8 mm distal arm, 4 mm at the elbow, 1.7 mm proximal forearm, 1.4 mm mid forearm and 1.5 mm distal forearm. The right basilic vein is 3.5 mm proximal forearm, 2.3 mm mid forearm, 1.8 mm distal forearm,3.4 mm at the elbow, 3.4 mm proximal forearm, 0.9 mm at the mid forearm and 0.8 mm distal forearm. The left cephalic vein is 1.8 mm proximal forearm, 2.0 mm mid forearm, 1.8 mm distal forearm, 1.6 mm at the elbow, 2.1 mm proximal forearm, 2.6 mm mid forearm and 1.9 mm distal forearm. The left basilic vein is 5.4 mm proximal arm, 4.7 mm mid arm, 4.1 mm distal arm, 3.9 mm at the elbow, 1.4 mm proximal forearm, 1.1 mm mid forearm and 1.3 mm distal forearm. STS. [facility] A Service of [facility] RADIOLOGY TEXT RESULTS PATIENT: NASH ALMEIDA LOCATION: [facility] 559-01 : 38 UNIT #: [id number] AGE: [address]: Mukund Escobedo MD SEX: M ORDER DR: IMPRESSION 1. Positive intraluminal debris consistent with superficial venous thrombosis in the right cephalic vein and basilic vein as well as the left cephalic vein. 2. The right cephalic vein based on size is adequate for use as a hemodialysis access from the proximal arm to the elbow but intraluminal debris within the upper arm may prohibit use. 3. The right basilic vein is not adequate for use has a hemodialysis access. 4. The left cephalic vein is not adequate for use as a hemodialysis access. 5. The left basilic vein is adequate for use as a hemodialysis access from the proximal arm to the elbow. Dictated by... Linda Gardiner M.D. THIS IS AN ELECTRONICALLY VERIFIED REPORT Linda Gardiner M.D. at 11/04/2016 8:27 AM SHANDA/jason TD: 11/03/2016 23:15 JOB #: [id number] MEDICAL IMAGING REPORT Page 1 of 1 COPY
--- NOTE | ~2016-10-19 | CR72 ---
[facility] A Service of [facility] & [facility] RADIOLOGY TEXT RESULTS PATIENT: NASH ALMEIDA LOCATION: [place] [id number] : 38 UNIT #: [id number] AGE: [address]: Rj Drake MD SEX: M ORDER DR: [id number] [facility] [address] [place], [place] [address] [id number] I MR#: [id number] Acc #: [id number] NAME: NASH ALMEIDA. : 1940 SEX: M STUDY DATE/TIME: 10/22/2016 13:08 UNIT: [facility] ROOM: [facility] STUDY DESCRIPTION: CR Chest Single View Portable Attending Physician: Rj Drake M.D. Ordering Physician: Zach Tavera M.D. Primary Care Physician: Gina Townsend M.D. MEDICAL IMAGING REPORT This report is preliminary unless electronic signature is present EXAM Chest, portable, 10/22. INDICATION ET tube and Dobbhoff tube placement. Shortness of air and weakness for 1 week. FINDINGS AP portable chest compared with 10/22/2016 at 0447 hours. New ET tube is in the mid trachea. Feeding tube in the body of the stomach. Diffuse bilateral pulmonary infiltrates are minimally worsened in the short interval. No pneumothorax is seen. Dictated by... Mathew Dorantes Jr., M.D. THIS IS AN ELECTRONICALLY VERIFIED REPORT Mathew Dorantes Jr., M.D. at 10/23/2016 7:19 AM ANDRE/akil TD: 10/22/2016 17:18 JOB #: [id number] MEDICAL IMAGING REPORT Page 1 of 1 COPY
--- NOTE | ~2016-10-19 | CR72 ---
[facility] A Service of [facility] & [facility] RADIOLOGY TEXT RESULTS PATIENT: NASH ALMEIDA LOCATION: [address] : 38 UNIT #: [id number] AGE: [address]: Mukund Escobedo MD SEX: M ORDER DR: [id number] [facility] [address] [place], [place] [address] [id number] I MR#: [id number] Acc #: [id number] NAME: NASH ALMEIDA : 1940 SEX: M STUDY DATE/TIME: 10/30/2016 09:13 UNIT: [facility] ROOM: [facility] STUDY DESCRIPTION: CR Chest Single View Portable Attending Physician: Mukund Escobedo M.D. Ordering Physician: Trey Prince M.D. Primary Care Physician: Gina Townsend M.D. MEDICAL IMAGING REPORT This report is preliminary unless electronic signature is present EXAM Chest portable 10/30/2016 0913 hours. CLINICAL HISTORY 75-year-old man with history of lung carcinoma and respiratory failure. Symptoms since 10/19/2016. FINDINGS Portable upright chest demonstrates stable endotracheal tube with tip 3 cm above the alanna. There is a right IJ catheter with tip in the right atrium without change. Lung volumes are low and the patient is rotated to the right. There is interstitial prominence right greater than left lung unchanged. There is no effusion or pneumothorax. IMPRESSION Film is limited by rightward rotation of the patient. Support equipment is in stable satisfactory position. There is interstitial change in the right lung similar to prior study. There is no acute pulmonary density or pleural effusion. Dictated by... Maggie Nicole M.D. THIS IS AN ELECTRONICALLY VERIFIED REPORT Maggie Nicole M.D. at 10/30/2016 2:34 PM AIME/mera TD: 10/30/2016 13:35 JOB #: [id number] MEDICAL IMAGING REPORT Page 1 of 1 COPY
--- NOTE | ~2016-10-19 | CR72 ---
[facility] A Service of [facility] & [facility] & [facility] RADIOLOGY TEXT RESULTS PATIENT: NASH ALMEIDA LOCATION: [place] [address]14 : 38 UNIT #: [id number] AGE: [address]: Mukund Escobedo MD SEX: M ORDER DR: [id number] [facility] [address] [place], [place] [address] [id number] I MR#: [id number] Acc #: [id number] NAME: NASH ALMEIDA. : 1940 SEX: M STUDY DATE/TIME: 10/29/2016 5:45 UNIT: [facility] ROOM: [facility] STUDY DESCRIPTION: CR Chest Single View Portable Attending Physician: Mukund Escobedo M.D. Ordering Physician: Trey Prince M.D. Primary Care Physician: Gina Townsend M.D. MEDICAL IMAGING REPORT This report is preliminary unless electronic signature is present EXAM Single view chest INDICATION Respiratory failure. FINDINGS Single portable AP view of the chest compared to 10/27/2016. Support lines and tubes remain in place. Heart and mediastinal contours are unchanged. There is increased interstitial markings in both lungs. No new pulmonary opacity. No pneumothorax. IMPRESSION No interval change. Dictated by... Richard Dougherty M.D. THIS IS AN ELECTRONICALLY VERIFIED REPORT Richard Dougherty M.D. at 10/30/2016 12:49 AM ZARINA/jermaine TD: 10/29/2016 06:45 JOB #: [id number] MEDICAL IMAGING REPORT Page 1 of 1 COPY
--- NOTE | ~2016-10-19 | DS ---
Unit #: [id number] #: [id number] Patient: NASH ALMEIDA [id number] [address] [address] [id number] I MR#: [id number] NAME: NASH ALMEIDA. ROOM: 559 Age: 75 Sex: M Admission Date: 10/19/2016 : 1940 Discharge Date: Attending Physician: Bartolome Strange Primary Care Physician: Gina Townsend M.D. DISCHARGE SUMMARY Please see detailed transfer of care dictated by Dr. Escobedo on November 01, 2016. DISCHARGE DIAGNOSES 1. Acute kidney injury with chronic kidney disease stage 3, nonoliguric, hemodialysis requiring. 2. Hypertension. 3. Sepsis. 4. Acute on chronic hypoxic respiratory failure. 5. Non-ST myocardial infarction elevation. 6. Pneumonia. 7. Gastrointestinal bleed. 8. Acute blood loss anemia. 9. Diabetes mellitus type 2. 10. Coronary artery disease with no chest pain. 11. Diabetes mellitus type 2. 12. Hypertension. 13. Chronic obstructive pulmonary disease with exacerbation. 14. Obesity. 15. Urinary retention. 16. Nonsmall-cell lung cancer status post resection and radiation. 17. Mild protein malnutrition. CONSULTATIONS 1. Dr. Watts. 2. Dr. Tavera. 3. Dr. Jacinto. 4. Dr. Cr. PROCEDURES The patient had bronchoscopy. DIAGNOSTIC STUDIES LABORATORY: Sodium 135, potassium 4.4, creatinine 2.9. WBC 7.0, hemoglobin 10.1, platelets 186. Stool: No C. diff. Sputum culture is negative. ALLERGIES Iodine and morphine. DISCHARGE MEDICATIONS 1. Flomax 0.4 mg p.o. daily. 2. Amiodarone 200 mg daily. 3. Zoloft 50 mg daily. Unit #: [id number] #: [id number] Patient: NASH ALMEIDA 4. Fenofibrate 160 mg daily. 5. Lopressor 50 mg p.o. b.i.d. 6. Timoptic eye drops 0.5% daily. 7. Lasix 40 mg p.o. b.i.d. 8. Lovastatin 20 mg p.o. daily. 9. Hydralazine 25 mg three times daily. 10. Protonix 40 mg p.o. b.i.d. 11. Amaryl 2 mg p.o. b.i.d. 12. Imdur ER 60 mg p.o. daily. 13. Nitroglycerin 0.4 mg sublingual p.r.n. chest pain. 14. Folic acid 1 mg p.o. daily. 15. Vitamin D 2,000 units p.o. daily. 16. Onglyza 5 mg p.o. daily. 17. Amazing Butt Cream paste apply topically p.r.n. HOSPITALIZATION COURSE A 75-year-old admitted on October 19, 2016, for GI bleed. Please see transfer of care note dictated on November 01, 2016, by Dr. Escobedo for more details on discharge. Acute kidney injury with chronic kidney disease requiring dialysis. The patient will continue having dialysis, had tunnel catheter. Non-ST HI elevation. Patient seen by Cardiology. Continue with medical management. Acute on chronic respiratory failure, currently on two liters. Continue oxygen. Sepsis with pneumonia. The patient completed antibiotics. COPD with exacerbation, received IV Solu-Medrol, currently stable. Continue with Albuterol p.r.n. at home. Diabetes mellitus type 2. The patient received insulin currently. She was normalized. Continue with Onglyza (1) at home. GI bleed with acute blood loss anemia. The patient was seen by Dr. Jacinto and he was seeing Dr. Cr. No active bleeding currently. The patient is okay to be discharged as per Dr. Jacinto. Follow with Dr. Jacinto and Dr. Cr in outpatient. I discussed with the and family. They are all okay for the patient to be discharged home. I discussed with Swinging Cut Off Saw Operator. She is going to arrange rolling walker for him. The rest of the consultants are okay for the patient to be discharged home. Discharge home. Follow with family physician in one week's time. Follow with Dr. Jacinto in one week's time. Continue with hemodialysis as per [facility]. Discharge time taken is 40 minutes. Dictated by... Unit #: [id number] #: [id number] Patient: NASH ALMEIDA M.D. KJ/bd TD: 11/07/2016 19:01 JOB #: [id number] DISCHARGE SUMMARY Page 1 of 1 X Kalpana Boone MD DISCHARGE SUMMARY
--- NOTE | ~2016-10-19 | EKG ---
PATIENT: NASH ALMEIDA UNIT #: [id number] Ventricular Rate: 54 BPM Atrial Rate: 54 BPM P-R Interval: 186 ms QRS Duration: 100 ms Q-T Interval: 468 ms QTC Calculation(Bezet): 443 ms P [place]: 13 degrees Calculated R [place]: 13 degrees Calculated T [place]: 38 degrees Diagnosis Line: Sinus bradycardia with Premature atrial complexes Diagnosis Line: RSR' or QR pattern in V1 suggests right Diagnosis Line: ventricular conduction delay Diagnosis Line: Abnormal ECG Diagnosis Line: When compared with ECG of 28-OCT-2016 22:14, Diagnosis Line: (unconfirmed) Diagnosis Line: Premature atrial complexes are now Present Diagnosis Line: RSR' pattern in V1 is now Present Diagnosis Line: Diagnosis Line: Confirmed by KHAI HERNANDEZ MD ([id number]) on Diagnosis Line: 11/01/2016 7:49:41 AM INTERPRETING : DWIGHT
--- NOTE | ~2016-10-19 | CO ---
Unit #: [id number] #: [id number] Patient: NASH ALMEIDA [id number] [address] [place], [place] [address] [id number] I MR#: [id number] NAME: NASH ALMEIDA [facility]OM: [facility] Age: 75 Sex: M Admission Date: 10/19/2016 : 1940 Attending Physician: Rj Drake M.D. Primary Care Physician: Gina Townsend M.D. CONSULTATION REPORT CHIEF COMPLAINT Non-small cell lung cancer, right lower lobe lobectomy, recurrent disease, SBRT, no sign of recurrent GI bleed, anemia, CKD, CHF, COPD, now possible [place]. HISTORY OF PRESENT ILLNESS This is a 75-year-old male who was diagnosed with lung cancer in 1991. The patient has had a right lower lobe lobectomy. Recently, patient had CT of the chest that showed 1.6 cm mass close to the esophagus. It increased in size. PET scan was positive. He received palliative radiation. The patient had multiple imaging studies including CT of the chest. There is some scar tissue in the azygoesophageal recess. It is stable. The patient has some pleural-based mass that is stable as well. No malignancy. The patient has chronic anemia. He has CKD. He has been receiving intravenous iron, folic acid, B12. Recently, he was taking aspirin and Plavix and he came with a GI bleed a couple of weeks ago. Now, again, he came with GI bleed. His troponin is elevated. At present, he is taking Brilinta and Lovenox. He has received PRBC transfusion. He just since he is on BiPAP machine. REVIEW OF SYSTEMS CONSTITUTIONAL: No fever, no chills, no sweats, no weight loss. EYES: No visual symptoms. EARS, NOSE AND THROAT: There is no runny nose or sore throat or difficulty hearing. CARDIOVASCULAR: No chest pain. No shortness of breath. No palpitations. No orthopnea. No PND. RESPIRATORY: No cough. No wheezing. No hemoptysis. GASTROINTESTINAL: No nausea, vomiting, diarrhea, constipation, hematochezia or melena. GENITOURINARY: No urinary frequency, hesitancy or urgency. No blood in the urine. MUSCULOSKELETAL: No muscle or joint pain. NEUROLOGIC: No headache. No numbness or tingling. No weakness. No seizure. PSYCHIATRIC: No anxiety, depression or mood disturbance. ENDOCRINE: No excessive urination or thirst. Unit #: [id number] #: [id number] Patient: NASH ALMEIDA DERMATOLOGIC: No rash or change in the skin. ALLERGIC/IMMUNOLOGIC: No symptoms. HEMATOLOGIC/LYMPHATIC: Denies any symptoms. PAST MEDICAL HISTORY Includes: 1. Recurrent non-small cell lung cancer. First lobectomy, now SBRT. No sign of disease. 2. Coronary artery disease, CABG. 3. Anemia. 4. COPD. 5. CKD. 6. Worsening congestive heart failure. 7. Diabetes. 8. Hypertension. PAST SURGICAL HISTORY 1. Resection of the left lower lobe mass. 2. Resection of DVT in the lower extremity. CURRENT MEDICATIONS Include: 1. Lipitor. 2. Protonix. 3. Lopressor. 4. Lortab. 5. Zoloft. 6. Lasix. 7. Three antibiotics including Zosyn, vancomycin, Nebcin. ALLERGIES 1. Morphine. 2. IV contrast. SOCIAL HISTORY Used to smoke one pack per day for 20 years, quit many years ago. Denies alcohol. 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 FAMILY HISTORY Sister leukemia. Brother also has leukemia. PHYSICAL EXAMINATION Presently he is very sore, short of breath. GENERAL: Patient is comfortable. ECOG is 0. The patient is pleasant. VITAL SIGNS: Temperature afebrile, pulse 63, respiratory rate 26, O2 saturation on 4 liters 95%, blood pressure 158/72. HEENT: Moist mucosa. Pupils equally reactive to light. Extraocular muscles intact. Sclerae anicteric. No obvious bleeding from nasal mucosa or oral mucosa. Scalp normal. Hearing normal. NECK: No JVD. No lymphadenopathy. LYMPHATIC/HEMATOLOGIC: There is no palpable adenopathy in the neck, axilla or inguinal area. CARDIOVASCULAR: S1, S2. Regular rate and rhythm. No S3 or S4. RESPIRATORY: Chest symmetrical, normal. Clear to auscultation bilaterally. No wheezes, no rales, no rhonchi. No dullness to percussion. ABDOMEN/GASTROINTESTINAL: Abdomen is soft, nontender, nondistended. No hepatosplenomegaly. EXTREMITIES: There is no clubbing, no cyanosis, no edema. No varicose Unit #: [id number] #: [id number] Patient: NASH ALMEIDA. NEUROLOGICAL: Patient is alert, awake and oriented x3. Cranial nerves II-XII are intact. Sensory grossly intact. Motor is 4/5 in all four extremities. Gait is normal. Station is normal. Language is normal. Memory is normal. DTRs +2 in all four extremities. MUSCULOSKELETAL: No joint swelling. No bony tenderness. No muscle tenderness. SKIN: No petechiae, no rash, no ecchymosis. PSYCHIATRIC: No anxiety. No delusions or hallucinations. There is no agitation. Eye contact is normal. Affect is appropriate. There is no flight of ideas. DIAGNOSTIC STUDIES LABORATORY: WBC 26.4, hemoglobin at time of admission 7.3, today it is 8.2, MCV 81, platelets 466. Creatinine 2.9, LFTs are normal. IMAGING: Chest x-ray positive bilateral infiltrates. ASSESSMENT AND PLAN This 75-year-old male with the following active issues: 1. Lung cancer. Patient had resection of right lower lobe, had recurrent disease. He received SBRT and at present no sign of disease. 2. Anemia, complex. Chronic disease, recurrent gastrointestinal bleed. At present will continue folic acid, B12 and will check iron studies. 3. Gastrointestinal. Patient had bleeding. He has an EGD that was normal, going for a colonoscopy. 4. Cardiovascular. Coronary artery disease, CABG, CHF. Now his troponin is elevated. He is taking Brilinta, Lovenox and tolerating. 5. Respiration. Patient has COPD. On 2 liters of oxygen is stable. 6. Renal. Creatinine is now above 2, is followed by ordering box operator. Dictated by... Leanne George/arianna TD: 10/21/2016 21:57 JOB #: [id number] CONSULTATION REPORT Page 1 of 1 X Tricia Jacinto MD CONSULTATION REPORT
--- NOTE | ~2016-10-19 | FU ---
[facility] Nutrition Therapy DATE: 10/28/16 Patient: NASH ALMEIDA Physician: QASIM Address: [address] Room/Bed: [address], Zip: [place] [id number] Admit Date: 10/19/16 Date of : 38 Height: 5 7 Weight: 185 84 NUTRITION MONITORING/FOLLOW-UP: Reason: Follow up Anthropometrics: Wt 10/28: 84 kg (Weight trending down since admission) Labs: Gluc 195 BUN 59 Creat 3.1 Ca++ 7.8 Accuchecks 192 GFR 18.4 Meds: Levemir, solu-medrol, furosemide, novolog, folic acid, lipitor, protonix, propofol @ 25.5 mL/hr I&O's: 1734/3494, last BM 10/28 (liquid stool), FMS in place Skin: no changes noted since previous assessment Edema: Trace BL hands/ LLE Estimated Nutrition Needs: 8722-7100 kcals (15-20 kcals/kg) 92-120 grams protein (1.0-1.3 grams/kg) Assessment: Chart reviewed, events noted. Pt remains intubated and sedated in the ICU. Propofol is currently providing an additional 673 kcals from lipids at this time; however, RN reports that propofol is being weaned. Pt had a ventilator wean trial this AM and became anxious. Another wean trial will likely be attempted tomorrow per RN report. Pt continues to receive enteral nutrition with Nepro @ 25 mL/hr + 30 mL Prostat TID. Per pump history, the pt has received 97% goal volume of enteral nutrition over the past 24 hrs. Please see recommendations below. Dx: Inadequate protein-energy intake RT respiratory distress AEB minimal to no intake reported by the pt's family and RN, wieght loss reported by the pt's (unknown amount)- RESOLVED (PT'S NUTRIENT NEEDS ARE BEING MET WITH EN) New dx: Inadequate oral intake RT ventilator dependence, clinical condition AEB NPO status Intervention: 1. Enteral nutrition Monitoring, Evaluation and Goals: 1. Enteral nutrition; provide >80% goal volume x 24 hrs- MET/ CONTINUE 2. Improve labs; glucose (SLIGHTLY IMPROVED), BUN (IMPROVED), creat (NOT IMPROVED), [facility] Nutrition Therapy DATE: 10/28/16 Patient: NASH Santoro ELLE Physician: QASIM Address: [address] Room/Bed: [facility] [facility], Zip: [place] [address] Admit Date: 10/19/16 Date of : 38 Height: 5 7 Weight: 185 84 (NOT IMPROVED), GFR (NOT IMPROVED) 3. Weight; prevent unintentional weight loss, preserve lean body mass- UNABLE TO DETERMINE D/T POSSIBLE WEIGHT FLUCTUATION WITH HD, EDEMA (WEIGHT TRENDING DOWN) NEW GOALS (IN ADDITION TO ABOVE): 1. GI; promote regular GI function Recommendations: 1. While the pt is receiving propofol, continue enteral nutrition with Nepro @ 25 mL/hr + 30 mL Prostat TID. 2. When propofol is discontinued, increase Nepro to 40 mL/hr and decrease Prostat to 30 mL once daily. This will provide: 1828 kcals/ 93 grams protein/ 701 mL free H20 -Free H20 flushes per MD 3. If the pt is extubated, recommend MOWER MECHANIC evaluation. Advance diet (if appropriate) per MOWER MECHANIC recommendations + heart healthy/ consistent carbohydrate restrictions. Further dietary restrictions to be determined based on intake and renal function. Status: Pt is at moderate nutritional risk. RD will continue to follow hospital course. Respectfully, KYRA DOHERTY RD, LD [facility] cc: client file
--- NOTE | ~2016-10-19 | CR72 ---
[facility] A Service of [facility] & [facility] RADIOLOGY TEXT RESULTS PATIENT: NASH ALMEIDA LOCATION: [address] : 38 UNIT #: [id number] AGE: [address]: Rj Drake MD SEX: M ORDER DR: [id number] [facility] [address] [facility] [place], [place] [address] [id number] I MR#: [id number] #: [id number] NAME: NASH ALMEIDA. : 1940 SEX: M STUDY DATE/TIME: 10/23/2016 6:15 UNIT: [facility] ROOM: [facility] STUDY DESCRIPTION: CR Chest Single View Portable Attending Physician: Rj Drake M.D. Ordering Physician: Zach Tavera M.D. Primary Care Physician: Gina Townsend M.D. MEDICAL IMAGING REPORT This report is preliminary unless electronic signature is present EXAM Frontal chest 10/23/2016. INDICATIONS 75-year-old male with shortness of air weakness, respiratory failure, pulmonary edema. Pneumonia and GI bleed. Symptoms for 4 days. History of lung cancer. TECHNIQUE Frontal chest was performed and compared with 10/22/2016. FINDINGS ET tube and enteric tube in satisfactory position. Cardiac silhouette borderline in size and stable. Interstitial and alveolar opacities bilaterally are extensive with slight interval improvement of opacities in the mid and upper lung zone on the left and stable to perhaps slight worsening of opacities in the midlung zone on the right. Small left effusion. No pneumothorax. IMPRESSION 1. Tubes and lines in satisfactory position. No pneumothorax. 2. Stable to slight interval worsening of bilateral interstitial and alveolar infiltrates. Small left effusion. Dictated by... Endy Spring M.D. THIS IS AN ELECTRONICALLY VERIFIED REPORT Endy Spring M.D. at 10/23/2016 3:31 PM AVELINO/mera TD: 10/23/2016 13:41 JOB #: [id number] [facility] A Service of [facility] & [facility] RADIOLOGY TEXT RESULTS PATIENT: NASH ALMEIDA LOCATION: [address] : [birth year] UNIT #: [id number] AGE: [address]: Rj Drake MD SEX: M ORDER DR: MEDICAL IMAGING REPORT Page 1 of 1 COPY
--- NOTE | ~2016-10-19 | CR72 ---
[facility] A Service of [facility] & [facility] RADIOLOGY TEXT RESULTS PATIENT: NASH ALMEIDA LOCATION: [address] : [birth year] UNIT #: [id number] AGE: [address]: Rj Drake MD SEX: M ORDER DR: [id number] [facility] [address]. [place], [place] [address] [id number] I MR#: [id number] Acc #: [id number] NAME: NASH ALMEIDA. : 1940 SEX: M STUDY DATE/TIME: 10/25/2016 5:39 UNIT: [facility] ROOM: [facility] STUDY DESCRIPTION: CR Chest Single View Portable Attending Physician: Rj Drake M.D. Ordering Physician: Trey Prince M.D. Primary Care Physician: Gina Townsend M.D. MEDICAL IMAGING REPORT This report is preliminary unless electronic signature is present EXAM Frontal chest, 10/25/2016. INDICATIONS 75-year-old male with respiratory failure for 6 days. History of lung cancer and hypertension. History of wedge resection. COMPARISON Frontal chest compared with 10/24/2016. FINDINGS Preexisting tubes and lines are in satisfactory position. Cardiac silhouette is stable. Extensive interstitial and alveolar infiltrates bilaterally are not significantly changed. Probable trace to small left effusion. No pneumothorax. IMPRESSION No significant change from 10/24/2016. Dictated by... Endy Spring M.D. THIS IS AN ELECTRONICALLY VERIFIED REPORT Endy Spring M.D. at 10/25/2016 4:12 PM AVELINO/avery TD: 10/25/2016 14:15 JOB #: [id number] MEDICAL IMAGING REPORT Page 1 of 1 COPY
[~2016-10-19 13:31] MED LIST changes: +ALBUTEROL17 GM INH; +HYDRALAZINE HCL50 MG PO; +LEVAQUIN750 MG PO; +PATIENT'S PHARMACY; +SYMBICORT INH
[2016-10-19 14:24] LABS: BASOPHIL% 0.3 % (0-2.5); EOSINOPHIL% 0.1 % (0.0-7.0); HEMOGLOBIN 8.5 gm/dL (13.0-16.0); LYMPHOCYTE# 0.4 X10e3 (1.0-3.5); LYMPHOCYTE% 2.5 % (17.0-45.0); MEAN CELL VOLUME 80.5 FL (83-96); MEAN CORPUSCULAR HEMOGLOBIN 26.3 PG (28-34); MEAN CORPUSCULAR HGB CONC 32.6 g/dL (30-36); MEAN PLATELET VOLUME 8.8 FL (6.5-11.5); MONOCYTE# 1.4 X10e3 (0-1.0); MONOCYTE% 8.6 % (3.0-12.0); NEUTROPHIL# 14.6 X10e3 (1.5-7.1); NEUTROPHIL% 88.5 % (40-75); PLATELET COUNT 394 X10e3 (140-420); RED BLOOD COUNT 3.23 X10e (3.90-5.60); RED CELL DISTRIBUTION WIDTH 17.3 % (11.0-15.5); WHITE BLOOD COUNT 16.5 X10e3 (4.0-10.5)
[2016-10-19 14:26] LABS: DIFF IND YES
[2016-10-19 14:37] LABS: INR 1.1; PARTIAL THROMBOPLASTIN TIME 31.9 SECONDS (23.5-31.3); PROTHROMBIN TIME (PATIENT) 12.2 SECONDS (10.0-11.7)
[2016-10-19 14:44] LABS: ALBUMIN SERUM 2.8 g/dL (3.5-5.0); BILIRUBIN, DIRECT 0.1 mg/dL (0.0-0.2); BILIRUBIN,INDIRECT 0.6 mg/dL (0.0-0.9); BILIRUBIN,TOTAL 0.7 mg/dL (0.2-2.0); BUN/CREATININE RATIO 14.76; CALCIUM SERUM 8.9 mg/dL (8.4-10.2); CREATININE SERUM 2.1 mg/dL (0.6-1.4); GLOM FILT RATE Estimated 29.5 mL/min (>60); POTASSIUM 3.8 mmol/L (3.5-5.1); PROTEIN TOTAL SERUM 7.1 g/dL (6.0-8.3)
[2016-10-19 14:49] LABS: ANISOCYTOSIS MOD; HYPOCHROMIA SL; PLATELET ESTIMATE NORMAL (NORMAL); POLYCHROMASIA SL
[2016-10-19] MEDS ORDERED: CLOPIDOGREL75 MG PO (15:22)
[2016-10-19] MEDS ORDERED: NORVASC10 MG PO (15:22)
[2016-10-19] MEDS ORDERED: ASPIRIN81 M2 PO (15:22)
[2016-10-19] MEDS ORDERED: TRIGLIDE160 M1 PO (15:23)
[2016-10-19] MEDS ORDERED: AMARYL1 MG PO (15:23)
[2016-10-19] MEDS ORDERED: HYDRALAZINE HCL50 MG PO (15:23)
[2016-10-19] MEDS ORDERED: FUROSEMIDE40 MG PO (15:23)
[2016-10-19] MEDS ORDERED: AVAPRO PO (15:24)
[2016-10-19] MEDS ORDERED: HYDROCODON-ACE1 EAC7 PO (15:24)
[2016-10-19] MEDS ORDERED: ALTOPREV20 MG PO (15:25)
[2016-10-19] MEDS ORDERED: LOPRESSOR PO (15:25)
[2016-10-19] MEDS ORDERED: NITROSTAT0.4 MG PO (15:25)
[2016-10-19] MEDS ORDERED: TIMOPTIC 0.5% OP5 M1 OU (15:25)
[2016-10-19] MEDS ORDERED: ONGLYZA5 MG PO (15:26)
[2016-10-19] MEDS ORDERED: PANTOPRAZOLE SO40 MG PO (15:26)
[2016-10-19] MEDS ORDERED: ZOLOFT50 MG PO (15:26)
[2016-10-19 16:40] LABS: ARTERIAL BLD GAS O2 SATURATION 91.3 % (90.0-100.0); ARTERIAL BLOOD GAS HCO3 19.8 mmol/L; ARTERIAL BLOOD GAS PCO2 31.3 mmHg (35.0-45.0)
[2016-10-19 16:41] LABS: ARTERIAL BLOOD GAS ALLEN TEST NORMAL; ARTERIAL BLOOD GAS ART SITE RIGHT RADIAL; ARTERIAL BLOOD GAS DELIVERY VENTURI MASK; ARTERIAL BLOOD GAS PO2 60.5 mmHg (80.0-100); ARTERIAL DRAW? YES
[2016-10-19 17:32] LABS: %MB 6.9 % (0.0-4.0); MB 7.2 ng/ml
[2016-10-19 20:23] LABS: HEMATOCRIT 25.1 % (38.0-50.0); HEMOGLOBIN 8.1 gm/dL (13.0-16.0)
[2016-10-19 22:38] LABS: URINE SOURCE CLEAN CATCH
[2016-10-19 22:42] LABS: URINE APPEARANCE CLEAR; URINE BILIRUBIN NEG (NEG); URINE BLOOD 2+ (NEG); URINE COLOR YELLOW; URINE GLUCOSE >1000 MG/DL (NEG); URINE KETONE 1+ (NEG); URINE LEUKOCYTE ESTERASE NEG (NEG); URINE NITRATE NEG (NEG); URINE PH 5.5 (5-8); URINE PROTEIN 3+ (NEG); URINE SPECIFIC GRAVITY 1.025 (1.003-1.035); URINE UROBILINOGEN 0.2 MG/DL (NEG)
[2016-10-19 22:45] LABS: URINE BACTERIA AUWI NEG (NEGATIVE); URINE SQUAMOUS EPITHELIAL CELL FEW /[HPF]
[2016-10-20] LABS: CREATININE,RANDOM URINE 118 mg/dL; SODIUM URINE RANDOM 29 mmol/L; TOTAL PROTEIN,RANDOM URINE 108 mg/dl (<10)
[2016-10-20 03:54] LABS: ARTERIAL BLD GAS O2 SATURATION 92.6 % (90.0-100.0); ARTERIAL BLOOD GAS CARBOXY HB 1.3 %sat (0.0-9.0); ARTERIAL BLOOD GAS HCO3 21.7 mmol/L; ARTERIAL BLOOD GAS MET HB 0.7 %sat (0.0-2.0); ARTERIAL BLOOD GAS pH 7.427 (7.350-7.450)
[2016-10-20 03:55] LABS: ARTERIAL BLOOD GAS ALLEN TEST NORMAL; ARTERIAL BLOOD GAS ART SITE RIGHT RADIAL; ARTERIAL BLOOD GAS PO2 68.9 mmHg (80.0-100); ARTERIAL DRAW? YES
[2016-10-20 05:23] LABS: %MB 8.4 % (0.0-4.0); MB 13.6 ng/ml
[2016-10-20 08:00] LABS: HEMATOCRIT 23.2 % (38.0-50.0); HEMOGLOBIN 7.3 gm/dL (13.0-16.0); MEAN CELL VOLUME 81.3 FL (83-96); MEAN CORPUSCULAR HEMOGLOBIN 25.7 PG (28-34); MEAN CORPUSCULAR HGB CONC 31.7 g/dL (30-36); RED BLOOD COUNT 2.85 X10e (3.90-5.60); RED CELL DISTRIBUTION WIDTH 17.1 % (11.0-15.5); WHITE BLOOD COUNT 15.2 X10e3 (4.0-10.5)
[2016-10-20 08:15] LABS: BUN/CREATININE RATIO 16.66; CALCIUM SERUM 8.3 mg/dL (8.4-10.2); CREATININE SERUM 2.4 mg/dL (0.6-1.4); GLOM FILT RATE Estimated 25.1 mL/min (>60); POTASSIUM 3.6 mmol/L (3.5-5.1)
[2016-10-20 10:37] LABS: LEGIONELLA AG URINE NEG (NEG)
[2016-10-20 16:26] LABS: HEMATOCRIT 24.1 % (38.0-50.0); HEMOGLOBIN 7.6 gm/dL (13.0-16.0); MEAN CELL VOLUME 81.2 FL (83-96); MEAN CORPUSCULAR HEMOGLOBIN 25.7 PG (28-34); MEAN CORPUSCULAR HGB CONC 31.7 g/dL (30-36); RED BLOOD COUNT 2.97 X10e (3.90-5.60); RED CELL DISTRIBUTION WIDTH 17.1 % (11.0-15.5); WHITE BLOOD COUNT 22.1 X10e3 (4.0-10.5)
[2016-10-21 05:01] LABS: INR 1.2; PARTIAL THROMBOPLASTIN TIME 27.5 SECONDS (23.5-31.3); PROTHROMBIN TIME (PATIENT) 13.2 SECONDS (10.0-11.7)
[2016-10-21 05:25] LABS: BASOPHIL# 0.1 X10e3 (0-0.3); BASOPHIL% 0.5 % (0-2.5); HEMATOCRIT 25.7 % (38.0-50.0); HEMOGLOBIN 8.2 gm/dL (13.0-16.0); LYMPHOCYTE# 0.2 X10e3 (1.0-3.5); LYMPHOCYTE% 0.8 % (17.0-45.0); MEAN CELL VOLUME 81.1 FL (83-96); MEAN CORPUSCULAR HEMOGLOBIN 25.9 PG (28-34); MEAN CORPUSCULAR HGB CONC 31.9 g/dL (30-36); MEAN PLATELET VOLUME 9.1 FL (6.5-11.5); MONOCYTE# 1.4 X10e3 (0-1.0); MONOCYTE% 5.4 % (3.0-12.0); NEUTROPHIL# 24.7 X10e3 (1.5-7.1); NEUTROPHIL% 93.3 % (40-75); PLATELET COUNT 466 X10e3 (140-420); RED BLOOD COUNT 3.17 X10e (3.90-5.60); WHITE BLOOD COUNT 26.5 X10e3 (4.0-10.5)
[2016-10-21 05:30] LABS: DIFF IND NO
[2016-10-21 07:06] LABS: ALBUMIN SERUM 2.1 g/dL (3.5-5.0); BILIRUBIN,TOTAL 0.3 mg/dL (0.2-2.0); BUN/CREATININE RATIO 19.65; CALCIUM SERUM 8.7 mg/dL (8.4-10.2); CREATININE SERUM 2.9 mg/dL (0.6-1.4); MAGNESIUM 2.2 mg/dL (1.6-3.0); PHOSPHOROUS 5.9 mg/dL (2.5-4.6); POTASSIUM 3.8 mmol/L (3.5-5.1); PROTEIN TOTAL SERUM 5.6 g/dL (6.0-8.3)
[2016-10-21 18:18] LABS: BASOPHIL# 0.2 X10e3 (0-0.3); BASOPHIL% 0.6 % (0-2.5); HEMATOCRIT 25.4 % (38.0-50.0); HEMOGLOBIN 7.9 gm/dL (13.0-16.0); LYMPHOCYTE# 0.2 X10e3 (1.0-3.5); LYMPHOCYTE% 0.7 % (17.0-45.0); MEAN CELL VOLUME 81.3 FL (83-96); MEAN CORPUSCULAR HEMOGLOBIN 25.2 PG (28-34); MEAN PLATELET VOLUME 8.8 FL (6.5-11.5); MONOCYTE# 1.2 X10e3 (0-1.0); MONOCYTE% 4.7 % (3.0-12.0); NEUTROPHIL# 23.8 X10e3 (1.5-7.1); PLATELET COUNT 442 X10e3 (140-420); RED BLOOD COUNT 3.13 X10e (3.90-5.60); RED CELL DISTRIBUTION WIDTH 17.4 % (11.0-15.5); WHITE BLOOD COUNT 25.4 X10e3 (4.0-10.5)
[2016-10-21 18:20] LABS: DIFF IND YES
[2016-10-21 18:35] LABS: ANISOCYTOSIS SL; HYPOCHROMIA SL; PLATELET ESTIMATE INCREASED (NORMAL)
[2016-10-22 05:40] LABS: BASOPHIL% 0.1 % (0-2.5); HEMATOCRIT 28.5 % (38.0-50.0); LYMPHOCYTE# 0.1 X10e3 (1.0-3.5); LYMPHOCYTE% 0.6 % (17.0-45.0); MEAN CELL VOLUME 82.3 FL (83-96); MEAN CORPUSCULAR HGB CONC 31.6 g/dL (30-36); MEAN PLATELET VOLUME 9.2 FL (6.5-11.5); MONOCYTE# 1.2 X10e3 (0-1.0); MONOCYTE% 5.3 % (3.0-12.0); NEUTROPHIL# 21.9 X10e3 (1.5-7.1); PLATELET COUNT 404 X10e3 (140-420); RED BLOOD COUNT 3.46 X10e (3.90-5.60); RED CELL DISTRIBUTION WIDTH 17.4 % (11.0-15.5); WHITE BLOOD COUNT 23.3 X10e3 (4.0-10.5)
[2016-10-22 06:07] LABS: DIFF IND NO
[2016-10-22 06:27] LABS: ALBUMIN SERUM 2.4 g/dL (3.5-5.0); BILIRUBIN,TOTAL 1.2 mg/dL (0.2-2.0); CALCIUM SERUM 8.5 mg/dL (8.4-10.2); CREATININE SERUM 3.8 mg/dL (0.6-1.4); GLOM FILT RATE Estimated 14.4 mL/min (>60); POTASSIUM 3.8 mmol/L (3.5-5.1); PROTEIN TOTAL SERUM 6.5 g/dL (6.0-8.3)
[2016-10-22 13:04] LABS: ARTERIAL BLD GAS O2 SATURATION 94.5 % (90.0-100.0); ARTERIAL BLOOD GAS ART SITE LEFT RADIAL; ARTERIAL BLOOD GAS CARBOXY HB 0.8 %sat (0.0-9.0); ARTERIAL BLOOD GAS DELIVERY VENT; ARTERIAL BLOOD GAS HCO3 20.9 mmol/L; ARTERIAL BLOOD GAS MET HB 0.9 %sat (0.0-2.0); ARTERIAL BLOOD GAS PCO2 42.8 mmHg (35.0-45.0); ARTERIAL BLOOD GAS PO2 91.7 mmHg (80.0-100); ARTERIAL BLOOD GAS VENT MODE AC; ARTERIAL BLOOD GAS pH 7.297 (7.350-7.450); ARTERIAL DRAW? YES
[2016-10-22 13:45] LABS: BF TOTAL NUCLEATED CELL COUNT 209 CMM (0-100); BODY FLUID APPEARANCE BLOODY; BODY FLUID RBC 17793 CMM; BODY FLUID SOURCE BRONCHIAL LAVAGE
[2016-10-22 19:52] LABS: BASOPHIL# 0.1 X10e3 (0-0.3); BASOPHIL% 0.4 % (0-2.5); HEMATOCRIT 24.9 % (38.0-50.0); HEMOGLOBIN 7.8 gm/dL (13.0-16.0); LYMPHOCYTE# 0.1 X10e3 (1.0-3.5); LYMPHOCYTE% 0.6 % (17.0-45.0); MEAN CORPUSCULAR HGB CONC 31.4 g/dL (30-36); MEAN PLATELET VOLUME 9.4 FL (6.5-11.5); MONOCYTE# 0.8 X10e3 (0-1.0); MONOCYTE% 4.7 % (3.0-12.0); NEUTROPHIL# 16.4 X10e3 (1.5-7.1); NEUTROPHIL% 94.3 % (40-75); PLATELET COUNT 349 X10e3 (140-420); RED BLOOD COUNT 3.01 X10e (3.90-5.60); RED CELL DISTRIBUTION WIDTH 17.4 % (11.0-15.5); WHITE BLOOD COUNT 17.4 X10e3 (4.0-10.5)
[2016-10-22 19:54] LABS: DIFF IND NO
[2016-10-23 04:48] LABS: ARTERIAL BLD GAS O2 SATURATION 93.7 % (90.0-100.0); ARTERIAL BLOOD GAS CARBOXY HB 1.3 %sat (0.0-9.0); ARTERIAL BLOOD GAS HCO3 20.2 mmol/L; ARTERIAL BLOOD GAS MET HB 1.1 %sat (0.0-2.0); ARTERIAL BLOOD GAS PCO2 35.6 mmHg (35.0-45.0); ARTERIAL BLOOD GAS PO2 80.1 mmHg (80.0-100); ARTERIAL BLOOD GAS pH 7.361 (7.350-7.450)
[2016-10-23 04:49] LABS: ARTERIAL BLOOD GAS ALLEN TEST NORMAL; ARTERIAL BLOOD GAS ART SITE LEFT RADIAL; ARTERIAL BLOOD GAS VENT MODE AC; ARTERIAL DRAW? YES
[2016-10-23 05:25] LABS: BASOPHIL# 0.1 X10e3 (0-0.3); BASOPHIL% 0.3 % (0-2.5); HEMATOCRIT 26.5 % (38.0-50.0); HEMOGLOBIN 8.5 gm/dL (13.0-16.0); LYMPHOCYTE# 0.1 X10e3 (1.0-3.5); LYMPHOCYTE% 0.5 % (17.0-45.0); MEAN CELL VOLUME 82.6 FL (83-96); MEAN CORPUSCULAR HEMOGLOBIN 26.4 PG (28-34); MEAN PLATELET VOLUME 9.5 FL (6.5-11.5); MONOCYTE# 0.7 X10e3 (0-1.0); NEUTROPHIL# 16.8 X10e3 (1.5-7.1); NEUTROPHIL% 95.2 % (40-75); PLATELET COUNT 330 X10e3 (140-420); RED BLOOD COUNT 3.22 X10e (3.90-5.60); RED CELL DISTRIBUTION WIDTH 16.8 % (11.0-15.5); WHITE BLOOD COUNT 17.7 X10e3 (4.0-10.5)
[2016-10-23 05:27] LABS: DIFF IND NO
[2016-10-23 08:49] LABS: ALBUMIN SERUM 1.9 g/dL (3.5-5.0); BILIRUBIN,TOTAL 0.8 mg/dL (0.2-2.0); CALCIUM SERUM 8.2 mg/dL (8.4-10.2); CREATININE SERUM 4.9 mg/dL (0.6-1.4); GLOM FILT RATE Estimated 10.6 mL/min (>60); MAGNESIUM 2.9 mg/dL (1.6-3.0); PHOSPHOROUS 7.7 mg/dL (2.5-4.6); POTASSIUM 3.5 mmol/L (3.5-5.1); PROTEIN TOTAL SERUM 5.6 g/dL (6.0-8.3)
[2016-10-23 08:54] LABS: BUN/CREATININE RATIO 21.02
[2016-10-23 15:15] LABS: INR 1.1; PROTHROMBIN TIME (PATIENT) 11.7 SECONDS (10.0-11.7)
[2016-10-23 20:49] LABS: ALBUMIN SERUM 2.1 g/dL (3.5-5.0); BILIRUBIN,TOTAL 0.6 mg/dL (0.2-2.0); BUN/CREATININE RATIO 19.33; CALCIUM SERUM 8.1 mg/dL (8.4-10.2); GLOM FILT RATE Estimated 19.2 mL/min (>60); POTASSIUM 3.6 mmol/L (3.5-5.1); PROTEIN TOTAL SERUM 6.4 g/dL (6.0-8.3)
[2016-10-24 04:38] LABS: ARTERIAL BLD GAS O2 SATURATION 97.7 % (90.0-100.0); ARTERIAL BLOOD GAS HCO3 22.6 mmol/L; ARTERIAL BLOOD GAS PCO2 34.5 mmHg (35.0-45.0); ARTERIAL BLOOD GAS pH 7.425 (7.350-7.450)
[2016-10-24 04:44] LABS: ARTERIAL BLOOD GAS ALLEN TEST NORMAL; ARTERIAL BLOOD GAS ART SITE RIGHT RADIAL; ARTERIAL DRAW? YES
[2016-10-24 04:45] LABS: ARTERIAL BLOOD GAS VENT MODE AC
[2016-10-24 05:57] LABS: BASOPHIL% 0.1 % (0-2.5); HEMATOCRIT 25.9 % (38.0-50.0); HEMOGLOBIN 8.3 gm/dL (13.0-16.0); LYMPHOCYTE# 0.2 X10e3 (1.0-3.5); LYMPHOCYTE% 1.1 % (17.0-45.0); MEAN CELL VOLUME 82.4 FL (83-96); MEAN CORPUSCULAR HEMOGLOBIN 26.4 PG (28-34); MEAN PLATELET VOLUME 9.3 FL (6.5-11.5); MONOCYTE# 0.7 X10e3 (0-1.0); MONOCYTE% 4.5 % (3.0-12.0); NEUTROPHIL% 94.3 % (40-75); PLATELET COUNT 319 X10e3 (140-420); RED BLOOD COUNT 3.15 X10e (3.90-5.60); RED CELL DISTRIBUTION WIDTH 17.2 % (11.0-15.5); WHITE BLOOD COUNT 14.9 X10e3 (4.0-10.5)
[2016-10-24 06:18] LABS: BUN/CREATININE RATIO 18.37; CALCIUM SERUM 7.9 mg/dL (8.4-10.2); CREATININE SERUM 3.7 mg/dL (0.6-1.4); GLOM FILT RATE Estimated 14.9 mL/min (>60); MAGNESIUM 2.5 mg/dL (1.6-3.0); POTASSIUM 4.1 mmol/L (3.5-5.1)
[2016-10-24 06:20] LABS: DIFF IND NO
[2016-10-25 04:39] LABS: ARTERIAL BLD GAS O2 SATURATION 97.4 % (90.0-100.0); ARTERIAL BLOOD GAS HCO3 23.5 mmol/L; ARTERIAL BLOOD GAS PCO2 43.5 mmHg (35.0-45.0); ARTERIAL BLOOD GAS pH 7.342 (7.350-7.450)
[2016-10-25 04:50] LABS: ARTERIAL BLOOD GAS ALLEN TEST NORMAL; ARTERIAL BLOOD GAS ART SITE LEFT RADIAL; ARTERIAL BLOOD GAS DELIVERY VENT; ARTERIAL BLOOD GAS VENT MODE AC; ARTERIAL DRAW? YES
[2016-10-25 06:14] LABS: BASOPHIL# 0.1 X10e3 (0-0.3); BASOPHIL% 0.4 % (0-2.5); EOSINOPHIL% 0.1 % (0.0-7.0); HEMATOCRIT 27.1 % (38.0-50.0); HEMOGLOBIN 8.6 gm/dL (13.0-16.0); LYMPHOCYTE# 0.2 X10e3 (1.0-3.5); LYMPHOCYTE% 1.8 % (17.0-45.0); MEAN CELL VOLUME 82.9 FL (83-96); MEAN CORPUSCULAR HEMOGLOBIN 26.4 PG (28-34); MEAN CORPUSCULAR HGB CONC 31.8 g/dL (30-36); MEAN PLATELET VOLUME 8.9 FL (6.5-11.5); MONOCYTE# 0.6 X10e3 (0-1.0); MONOCYTE% 4.6 % (3.0-12.0); NEUTROPHIL# 12.1 X10e3 (1.5-7.1); NEUTROPHIL% 93.1 % (40-75); PLATELET COUNT 312 X10e3 (140-420); RED BLOOD COUNT 3.27 X10e (3.90-5.60); RED CELL DISTRIBUTION WIDTH 17.3 % (11.0-15.5)
[2016-10-25 06:15] LABS: DIFF IND YES
[2016-10-25 06:35] LABS: ALBUMIN SERUM 1.9 g/dL (3.5-5.0); BILIRUBIN,TOTAL 0.5 mg/dL (0.2-2.0); BUN/CREATININE RATIO 20.28; CALCIUM SERUM 8.3 mg/dL (8.4-10.2); CREATININE SERUM 3.5 mg/dL (0.6-1.4); GLOM FILT RATE Estimated 15.9 mL/min (>60); POTASSIUM 4.5 mmol/L (3.5-5.1); PROTEIN TOTAL SERUM 5.6 g/dL (6.0-8.3)
[2016-10-25 07:55] LABS: NUCLEATED RED BLOOD CELL 3 /100 (0)
[2016-10-25 07:56] LABS: ANISOCYTOSIS SL; HYPOCHROMIA SL; PLATELET ESTIMATE NORMAL (NORMAL); VACUOLIZATION SL
[2016-10-26 06:20] LABS: BASOPHIL# 0.2 X10e3 (0-0.3); BASOPHIL% 1.3 % (0-2.5); EOSINOPHIL# 0.1 X10e3 (0-0.7); EOSINOPHIL% 0.7 % (0.0-7.0); HEMATOCRIT 29.7 % (38.0-50.0); LYMPHOCYTE# 0.2 X10e3 (1.0-3.5); LYMPHOCYTE% 1.7 % (17.0-45.0); MEAN CELL VOLUME 85.6 FL (83-96); MEAN CORPUSCULAR HEMOGLOBIN 26.1 PG (28-34); MEAN CORPUSCULAR HGB CONC 30.5 g/dL (30-36); MEAN PLATELET VOLUME 9.7 FL (6.5-11.5); MONOCYTE# 0.6 X10e3 (0-1.0); MONOCYTE% 4.5 % (3.0-12.0); NEUTROPHIL# 11.3 X10e3 (1.5-7.1); NEUTROPHIL% 91.8 % (40-75); PLATELET COUNT 325 X10e3 (140-420); RED BLOOD COUNT 3.47 X10e (3.90-5.60); RED CELL DISTRIBUTION WIDTH 17.6 % (11.0-15.5); WHITE BLOOD COUNT 12.3 X10e3 (4.0-10.5)
[2016-10-26 06:27] LABS: DIFF IND NO
[2016-10-26 07:44] LABS: BUN/CREATININE RATIO 24.33; CALCIUM SERUM 8.6 mg/dL (8.4-10.2); GLOM FILT RATE Estimated 19.2 mL/min (>60); MAGNESIUM 2.4 mg/dL (1.6-3.0); PHOSPHOROUS 6.8 mg/dL (2.5-4.6); POTASSIUM 4.3 mmol/L (3.5-5.1)
[2016-10-26 08:13] LABS: BUN/CREATININE RATIO 22.33; CALCIUM SERUM 7.6 mg/dL (8.4-10.2); GLOM FILT RATE Estimated 19.2 mL/min (>60); POTASSIUM 3.8 mmol/L (3.5-5.1)
[2016-10-26 08:16] LABS: ARTERIAL BLD GAS O2 SATURATION 95.9 % (90.0-100.0); ARTERIAL BLOOD GAS ALLEN TEST NORMAL; ARTERIAL BLOOD GAS ART SITE LEFT RADIAL; ARTERIAL BLOOD GAS CARBOXY HB 0.8 %sat (0.0-9.0); ARTERIAL BLOOD GAS DELIVERY VENY; ARTERIAL BLOOD GAS HCO3 22.7 mmol/L; ARTERIAL BLOOD GAS MET HB 1.2 %sat (0.0-2.0); ARTERIAL BLOOD GAS PCO2 46.3 mmHg (35.0-45.0); ARTERIAL BLOOD GAS VENT MODE AC; ARTERIAL BLOOD GAS pH 7.299 (7.350-7.450); ARTERIAL DRAW? YES
[2016-10-26 08:51] LABS: %MB 2.1 % (0.0-4.0); MB 1.9 ng/ml
[2016-10-27 04:08] LABS: BASOPHIL% 0.2 % (0-2.5); EOSINOPHIL# 0.2 X10e3 (0-0.7); EOSINOPHIL% 2.2 % (0.0-7.0); HEMATOCRIT 26.1 % (38.0-50.0); HEMOGLOBIN 8.5 gm/dL (13.0-16.0); LYMPHOCYTE# 0.2 X10e3 (1.0-3.5); LYMPHOCYTE% 2.1 % (17.0-45.0); MEAN CELL VOLUME 83.9 FL (83-96); MEAN CORPUSCULAR HEMOGLOBIN 27.3 PG (28-34); MEAN CORPUSCULAR HGB CONC 32.5 g/dL (30-36); MEAN PLATELET VOLUME 9.3 FL (6.5-11.5); MONOCYTE# 0.6 X10e3 (0-1.0); MONOCYTE% 5.6 % (3.0-12.0); NEUTROPHIL# 10.3 X10e3 (1.5-7.1); NEUTROPHIL% 89.9 % (40-75); PLATELET COUNT 254 X10e3 (140-420); RED BLOOD COUNT 3.11 X10e (3.90-5.60); RED CELL DISTRIBUTION WIDTH 17.3 % (11.0-15.5); WHITE BLOOD COUNT 11.4 X10e3 (4.0-10.5)
[2016-10-27 04:09] LABS: DIFF IND NO
[2016-10-27 04:41] LABS: ALBUMIN SERUM 2.1 g/dL (3.5-5.0); BILIRUBIN,TOTAL 0.5 mg/dL (0.2-2.0); CALCIUM SERUM 8.3 mg/dL (8.4-10.2); CREATININE SERUM 4.4 mg/dL (0.6-1.4); GLOM FILT RATE Estimated 12.1 mL/min (>60); MAGNESIUM 2.5 mg/dL (1.6-3.0); POTASSIUM 3.9 mmol/L (3.5-5.1); PROTEIN TOTAL SERUM 5.3 g/dL (6.0-8.3)
[2016-10-27 04:47] LABS: BUN/CREATININE RATIO 25.45
[2016-10-27 09:32] LABS: ARTERIAL BLD GAS O2 SATURATION 97.4 % (90.0-100.0); ARTERIAL BLOOD GAS ALLEN TEST NORMAL; ARTERIAL BLOOD GAS ART SITE RIGHT RADIAL; ARTERIAL BLOOD GAS CARBOXY HB 0.8 %sat (0.0-9.0); ARTERIAL BLOOD GAS DELIVERY VENT; ARTERIAL BLOOD GAS HCO3 20.8 mmol/L; ARTERIAL BLOOD GAS MET HB 1.2 %sat (0.0-2.0); ARTERIAL BLOOD GAS PCO2 43.1 mmHg (35.0-45.0); ARTERIAL BLOOD GAS VENT MODE CPAP; ARTERIAL BLOOD GAS pH 7.293 (7.350-7.450); ARTERIAL DRAW? YES
[2016-10-28 06:06] LABS: BASOPHIL% 0.1 % (0-2.5); EOSINOPHIL# 0.3 X10e3 (0-0.7); EOSINOPHIL% 2.9 % (0.0-7.0); HEMATOCRIT 26.3 % (38.0-50.0); HEMOGLOBIN 8.8 gm/dL (13.0-16.0); LYMPHOCYTE# 0.3 X10e3 (1.0-3.5); LYMPHOCYTE% 2.2 % (17.0-45.0); MEAN CELL VOLUME 82.7 FL (83-96); MEAN CORPUSCULAR HEMOGLOBIN 27.6 PG (28-34); MEAN CORPUSCULAR HGB CONC 33.3 g/dL (30-36); MEAN PLATELET VOLUME 9.5 FL (6.5-11.5); MONOCYTE# 0.5 X10e3 (0-1.0); MONOCYTE% 4.6 % (3.0-12.0); NEUTROPHIL# 10.4 X10e3 (1.5-7.1); NEUTROPHIL% 90.2 % (40-75); PLATELET COUNT 249 X10e3 (140-420); RED BLOOD COUNT 3.18 X10e (3.90-5.60); RED CELL DISTRIBUTION WIDTH 17.3 % (11.0-15.5); WHITE BLOOD COUNT 11.6 X10e3 (4.0-10.5)
[2016-10-28 06:19] LABS: DIFF IND NO
[2016-10-28 06:44] LABS: BUN/CREATININE RATIO 19.03; CALCIUM SERUM 7.8 mg/dL (8.4-10.2); CREATININE SERUM 3.1 mg/dL (0.6-1.4); GLOM FILT RATE Estimated 18.4 mL/min (>60); POTASSIUM 3.9 mmol/L (3.5-5.1)
[2016-10-29 05:45] LABS: BASOPHIL% 0.4 % (0-2.5); EOSINOPHIL# 0.2 X10e3 (0-0.7); EOSINOPHIL% 2.3 % (0.0-7.0); HEMATOCRIT 24.7 % (38.0-50.0); LYMPHOCYTE# 0.2 X10e3 (1.0-3.5); LYMPHOCYTE% 2.4 % (17.0-45.0); MEAN CELL VOLUME 82.9 FL (83-96); MEAN CORPUSCULAR HEMOGLOBIN 26.9 PG (28-34); MEAN CORPUSCULAR HGB CONC 32.4 g/dL (30-36); MEAN PLATELET VOLUME 9.4 FL (6.5-11.5); MONOCYTE# 0.4 X10e3 (0-1.0); MONOCYTE% 4.7 % (3.0-12.0); NEUTROPHIL% 90.2 % (40-75); PLATELET COUNT 191 X10e3 (140-420); RED BLOOD COUNT 2.98 X10e (3.90-5.60); RED CELL DISTRIBUTION WIDTH 17.3 % (11.0-15.5); WHITE BLOOD COUNT 7.7 X10e3 (4.0-10.5)
[2016-10-29 05:49] LABS: DIFF IND YES
[2016-10-29 06:34] LABS: ALBUMIN SERUM 2.2 g/dL (3.5-5.0); BILIRUBIN,TOTAL 0.7 mg/dL (0.2-2.0); BUN/CREATININE RATIO 19.6; CALCIUM SERUM 8.2 mg/dL (8.4-10.2); GLOM FILT RATE Estimated 10.3 mL/min (>60); POTASSIUM 3.9 mmol/L (3.5-5.1); PROTEIN TOTAL SERUM 5.3 g/dL (6.0-8.3)
[2016-10-29 06:38] LABS: ANISOCYTOSIS SL; PLATELET ESTIMATE NORMAL (NORMAL); POIKILOCYTOSIS SL; POLYCHROMASIA SL
[2016-10-29 06:39] LABS: TEAR DROP CELLS PRESENT
[2016-10-29 06:58] LABS: %MB 4.1 % (0.0-4.0); MB 5.2 ng/ml
[2016-10-29 09:00] LABS: ARTERIAL BLD GAS O2 SATURATION 93.8 % (90.0-100.0); ARTERIAL BLOOD GAS ART SITE RIGHT BRACHIAL; ARTERIAL BLOOD GAS CARBOXY HB 1.1 %sat (0.0-9.0); ARTERIAL BLOOD GAS DELIVERY VENT; ARTERIAL BLOOD GAS HCO3 23.7 mmol/L; ARTERIAL BLOOD GAS MET HB 1.1 %sat (0.0-2.0); ARTERIAL BLOOD GAS PCO2 53.1 mmHg (35.0-45.0); ARTERIAL BLOOD GAS PO2 88.3 mmHg (80.0-100); ARTERIAL BLOOD GAS VENT MODE CPAP; ARTERIAL BLOOD GAS pH 7.258 (7.350-7.450); ARTERIAL DRAW? YES
[2016-10-30 05:21] LABS: BASOPHIL% 0.2 % (0-2.5); EOSINOPHIL# 0.1 X10e3 (0-0.7); EOSINOPHIL% 1.2 % (0.0-7.0); HEMOGLOBIN 8.2 gm/dL (13.0-16.0); LYMPHOCYTE# 0.3 X10e3 (1.0-3.5); LYMPHOCYTE% 3.7 % (17.0-45.0); MEAN CORPUSCULAR HEMOGLOBIN 27.2 PG (28-34); MEAN CORPUSCULAR HGB CONC 32.8 g/dL (30-36); MEAN PLATELET VOLUME 9.7 FL (6.5-11.5); MONOCYTE# 0.5 X10e3 (0-1.0); MONOCYTE% 6.1 % (3.0-12.0); NEUTROPHIL# 7.2 X10e3 (1.5-7.1); NEUTROPHIL% 88.8 % (40-75); PLATELET COUNT 183 X10e3 (140-420); RED BLOOD COUNT 3.01 X10e (3.90-5.60); RED CELL DISTRIBUTION WIDTH 17.7 % (11.0-15.5); WHITE BLOOD COUNT 8.1 X10e3 (4.0-10.5)
[2016-10-30 05:25] LABS: DIFF IND NO
[2016-10-30 06:00] LABS: ALBUMIN SERUM 2.1 g/dL (3.5-5.0); BILIRUBIN,TOTAL 0.6 mg/dL (0.2-2.0); BUN/CREATININE RATIO 16.47; CALCIUM SERUM 7.7 mg/dL (8.4-10.2); CREATININE SERUM 3.4 mg/dL (0.6-1.4); GLOM FILT RATE Estimated 16.5 mL/min (>60); POTASSIUM 3.8 mmol/L (3.5-5.1); PROTEIN TOTAL SERUM 4.9 g/dL (6.0-8.3)
[2016-10-30 09:28] LABS: ARTERIAL BLOOD GAS CARBOXY HB 1.4 %sat (0.0-9.0); ARTERIAL BLOOD GAS HCO3 26.5 mmol/L; ARTERIAL BLOOD GAS MET HB 0.9 %sat (0.0-2.0); ARTERIAL BLOOD GAS PCO2 46.7 mmHg (35.0-45.0); ARTERIAL BLOOD GAS pH 7.363 (7.350-7.450)
[2016-10-30 09:29] LABS: ARTERIAL BLOOD GAS ALLEN TEST NORMAL; ARTERIAL BLOOD GAS ART SITE LEFT BRACHIAL; ARTERIAL BLOOD GAS DELIVERY VENT; ARTERIAL BLOOD GAS PO2 56.5 mmHg (80.0-100); ARTERIAL BLOOD GAS VENT MODE CPAP; ARTERIAL DRAW? YES
[2016-10-30 11:59] LABS: ARTERIAL BLOOD GAS ALLEN TEST NORMAL; ARTERIAL BLOOD GAS ART SITE LEFT BRACHIAL; ARTERIAL BLOOD GAS CARBOXY HB 1.2 %sat (0.0-9.0); ARTERIAL BLOOD GAS HCO3 25.5 mmol/L; ARTERIAL BLOOD GAS MET HB 0.9 %sat (0.0-2.0); ARTERIAL BLOOD GAS PCO2 44.6 mmHg (35.0-45.0); ARTERIAL BLOOD GAS PO2 72.3 mmHg (80.0-100); ARTERIAL BLOOD GAS pH 7.365 (7.350-7.450); ARTERIAL DRAW? YES
[2016-10-30 12:00] LABS: ARTERIAL BLOOD GAS DELIVERY VENTURI
[2016-10-31 04:33] LABS: %MB 2.7 % (0.0-4.0); MB 3.4 ng/ml
[2016-10-31 05:19] LABS: BASOPHIL% 0.1 % (0-2.5); EOSINOPHIL# 0.1 X10e3 (0-0.7); EOSINOPHIL% 0.9 % (0.0-7.0); HEMATOCRIT 29.7 % (38.0-50.0); HEMOGLOBIN 9.8 gm/dL (13.0-16.0); LYMPHOCYTE# 0.3 X10e3 (1.0-3.5); LYMPHOCYTE% 2.6 % (17.0-45.0); MEAN CELL VOLUME 83.7 FL (83-96); MEAN CORPUSCULAR HEMOGLOBIN 27.6 PG (28-34); MEAN PLATELET VOLUME 9.8 FL (6.5-11.5); MONOCYTE% 7.5 % (3.0-12.0); NEUTROPHIL# 11.4 X10e3 (1.5-7.1); NEUTROPHIL% 88.9 % (40-75); PLATELET COUNT 204 X10e3 (140-420); RED BLOOD COUNT 3.54 X10e (3.90-5.60); RED CELL DISTRIBUTION WIDTH 18.4 % (11.0-15.5)
[2016-10-31 05:26] LABS: WHITE BLOOD COUNT 12.8 X10e3 (4.0-10.5)
[2016-10-31 05:27] LABS: DIFF IND NO
[2016-10-31 06:08] LABS: HA AB IGM (HEPPAN) Nonreactive (()); HB CORE AB IGM (HEPPAN) Nonreactive (Nonreactive); HB S AG (HEPPAN) Nonreactive (Nonreactive); HEP C AB (HEPPAN) Nonreactive (Nonreactive); HEP C AB SIGNAL TO CUTOFF 0.01 ratio (<1.00)
[2016-10-31 06:23] LABS: ALBUMIN SERUM 2.3 g/dL (3.5-5.0); BILIRUBIN,TOTAL 0.8 mg/dL (0.2-2.0); BUN/CREATININE RATIO 18.95; CALCIUM SERUM 8.3 mg/dL (8.4-10.2); CREATININE SERUM 4.8 mg/dL (0.6-1.4); GLOM FILT RATE Estimated 10.8 mL/min (>60); POTASSIUM 3.6 mmol/L (3.5-5.1); PROTEIN TOTAL SERUM 5.7 g/dL (6.0-8.3)
[2016-10-31 21:37] LABS: IRON SERUM 48 ug/dL (45-182); TOTAL IRON BINDING CAPACITY 298 ug/dL (252-460); TRANSFERRIN 213 mg/dL (180-329); TRANSFERRIN SATURATION 16 % (20-50)
[2016-11-01 06:05] LABS: BASOPHIL# 0.1 X10e3 (0-0.3); BASOPHIL% 0.5 % (0-2.5); DIFF IND NO; EOSINOPHIL% 0.4 % (0.0-7.0); HEMATOCRIT 28.3 % (38.0-50.0); HEMOGLOBIN 9.1 gm/dL (13.0-16.0); LYMPHOCYTE# 0.5 X10e3 (1.0-3.5); LYMPHOCYTE% 4.6 % (17.0-45.0); MEAN CELL VOLUME 84.6 FL (83-96); MEAN CORPUSCULAR HEMOGLOBIN 27.1 PG (28-34); MONOCYTE# 0.9 X10e3 (0-1.0); MONOCYTE% 8.1 % (3.0-12.0); NEUTROPHIL% 86.4 % (40-75); PLATELET COUNT 198 X10e3 (140-420); RED BLOOD COUNT 3.35 X10e (3.90-5.60); RED CELL DISTRIBUTION WIDTH 19.3 % (11.0-15.5); WHITE BLOOD COUNT 11.5 X10e3 (4.0-10.5)
[2016-11-01 07:57] LABS: BUN/CREATININE RATIO 14.57; CALCIUM SERUM 8.1 mg/dL (8.4-10.2); CREATININE SERUM 3.5 mg/dL (0.6-1.4); GLOM FILT RATE Estimated 15.9 mL/min (>60); POTASSIUM 3.8 mmol/L (3.5-5.1)
[2016-11-02 06:59] LABS: BASOPHIL% 0.4 % (0-2.5); EOSINOPHIL# 0.1 X10e3 (0-0.7); EOSINOPHIL% 0.5 % (0.0-7.0); HEMATOCRIT 26.7 % (38.0-50.0); HEMOGLOBIN 9.1 gm/dL (13.0-16.0); LYMPHOCYTE# 0.5 X10e3 (1.0-3.5); LYMPHOCYTE% 3.7 % (17.0-45.0); MEAN CELL VOLUME 84.4 FL (83-96); MEAN CORPUSCULAR HEMOGLOBIN 28.7 PG (28-34); MEAN PLATELET VOLUME 9.3 FL (6.5-11.5); MONOCYTE# 1.1 X10e3 (0-1.0); MONOCYTE% 8.4 % (3.0-12.0); NEUTROPHIL# 10.9 X10e3 (1.5-7.1); PLATELET COUNT 219 X10e3 (140-420); RED BLOOD COUNT 3.17 X10e (3.90-5.60); RED CELL DISTRIBUTION WIDTH 19.2 % (11.0-15.5); WHITE BLOOD COUNT 12.5 X10e3 (4.0-10.5)
[2016-11-02 07:10] LABS: DIFF IND NO
[2016-11-02 07:53] LABS: BUN/CREATININE RATIO 14.89; CREATININE SERUM 4.7 mg/dL (0.6-1.4); GLOM FILT RATE Estimated 11.1 mL/min (>60); POTASSIUM 4.5 mmol/L (3.5-5.1)
[2016-11-03 05:40] LABS: HEMATOCRIT 23.6 % (38.0-50.0); HEMOGLOBIN 7.6 gm/dL (13.0-16.0); MEAN CELL VOLUME 85.3 FL (83-96); MEAN CORPUSCULAR HEMOGLOBIN 27.6 PG (28-34); MEAN CORPUSCULAR HGB CONC 32.4 g/dL (30-36); RED BLOOD COUNT 2.77 X10e (3.90-5.60); RED CELL DISTRIBUTION WIDTH 19.5 % (11.0-15.5); WHITE BLOOD COUNT 8.4 X10e3 (4.0-10.5)
[2016-11-03 05:55] LABS: INR 1.1; PARTIAL THROMBOPLASTIN TIME 29.4 SECONDS (23.5-31.3); PROTHROMBIN TIME (PATIENT) 11.6 SECONDS (10.0-11.7)
[2016-11-03 06:26] LABS: ALBUMIN SERUM 2.2 g/dL (3.5-5.0); BILIRUBIN,TOTAL 0.3 mg/dL (0.2-2.0); BUN/CREATININE RATIO 10.35; CALCIUM SERUM 7.6 mg/dL (8.4-10.2); CREATININE SERUM 2.8 mg/dL (0.6-1.4); GLOM FILT RATE Estimated 20.8 mL/min (>60); POTASSIUM 4.1 mmol/L (3.5-5.1); PROTEIN TOTAL SERUM 4.6 g/dL (6.0-8.3)
[2016-11-03 14:31] LABS: HEMOGLOBIN 8.7 gm/dL (13.0-16.0)
[2016-11-03 14:41] LABS: URINE APPEARANCE CLOUDY; URINE BILIRUBIN NEG (NEG); URINE BLOOD 1+ (NEG); URINE COLOR DK YELLOW; URINE GLUCOSE NEG (NEG); URINE KETONE NEG (NEG); URINE LEUKOCYTE ESTERASE 2+ (NEG); URINE NITRATE NEG (NEG); URINE PROTEIN 3+ (NEG); URINE UROBILINOGEN 0.2 MG/DL (NEG)
[2016-11-03 14:55] LABS: URINE BACTERIA AUWI 1+ (NEGATIVE)
[2016-11-03 14:56] LABS: URINE SQUAMOUS EPITHELIAL CELL OCCAS /[HPF]; URINE YEAST PRESENT; UWBCS1 AUWI 50-100 (0-5)
[2016-11-04 05:26] LABS: HEMOGLOBIN 10.5 gm/dL (13.0-16.0); MEAN CELL VOLUME 84.2 FL (83-96); MEAN CORPUSCULAR HEMOGLOBIN 27.6 PG (28-34); MEAN CORPUSCULAR HGB CONC 32.8 g/dL (30-36); MEAN PLATELET VOLUME 8.7 FL (6.5-11.5); RED BLOOD COUNT 3.8 X10e (3.90-5.60); RED CELL DISTRIBUTION WIDTH 19.7 % (11.0-15.5); WHITE BLOOD COUNT 10.2 X10e3 (4.0-10.5)
[2016-11-04 06:24] LABS: ALBUMIN SERUM 2.6 g/dL (3.5-5.0); BILIRUBIN,TOTAL 0.6 mg/dL (0.2-2.0); BUN/CREATININE RATIO 12.05; CALCIUM SERUM 8.2 mg/dL (8.4-10.2); CREATININE SERUM 3.9 mg/dL (0.6-1.4); GLOM FILT RATE Estimated 13.9 mL/min (>60); PHOSPHOROUS 4.5 mg/dL (2.5-4.6); PROTEIN TOTAL SERUM 5.6 g/dL (6.0-8.3)
[2016-11-06 00:51] LABS: CALCIUM (PTHINTACT) 7.8 mg/dL (8.6-10.3)
[2016-11-06 06:00] LABS: HEMATOCRIT 30.4 % (38.0-50.0); HEMOGLOBIN 9.8 gm/dL (13.0-16.0); MEAN CELL VOLUME 85.8 FL (83-96); MEAN CORPUSCULAR HEMOGLOBIN 27.7 PG (28-34); MEAN CORPUSCULAR HGB CONC 32.2 g/dL (30-36); MEAN PLATELET VOLUME 8.5 FL (6.5-11.5); RED BLOOD COUNT 3.54 X10e (3.90-5.60); RED CELL DISTRIBUTION WIDTH 19.5 % (11.0-15.5); WHITE BLOOD COUNT 6.6 X10e3 (4.0-10.5)
[2016-11-06 06:20] LABS: INR 1.1; PARTIAL THROMBOPLASTIN TIME 27.5 SECONDS (23.5-31.3); PROTHROMBIN TIME (PATIENT) 11.4 SECONDS (10.0-11.7)
[2016-11-06 07:23] LABS: ALBUMIN SERUM 2.5 g/dL (3.5-5.0); BILIRUBIN,TOTAL 0.7 mg/dL (0.2-2.0); BUN/CREATININE RATIO 11.05; CALCIUM SERUM 7.9 mg/dL (8.4-10.2); CREATININE SERUM 3.8 mg/dL (0.6-1.4); GLOM FILT RATE Estimated 14.4 mL/min (>60); POTASSIUM 5.3 mmol/L (3.5-5.1); PROTEIN TOTAL SERUM 5.4 g/dL (6.0-8.3)
[2016-11-07 10:47] LABS: HEMATOCRIT 31.6 % (38.0-50.0); HEMOGLOBIN 10.1 gm/dL (13.0-16.0); MEAN CELL VOLUME 85.8 FL (83-96); MEAN CORPUSCULAR HEMOGLOBIN 27.5 PG (28-34); MEAN CORPUSCULAR HGB CONC 32.1 g/dL (30-36); MEAN PLATELET VOLUME 8.1 FL (6.5-11.5); RED BLOOD COUNT 3.68 X10e (3.90-5.60); RED CELL DISTRIBUTION WIDTH 19.8 % (11.0-15.5)
[2016-11-07 11:26] LABS: ALBUMIN SERUM 2.6 g/dL (3.5-5.0); BILIRUBIN,TOTAL 0.6 mg/dL (0.2-2.0); BUN/CREATININE RATIO 8.62; CREATININE SERUM 2.9 mg/dL (0.6-1.4); MAGNESIUM 1.8 mg/dL (1.6-3.0); POTASSIUM 4.4 mmol/L (3.5-5.1); PROTEIN TOTAL SERUM 5.4 g/dL (6.0-8.3)
[2016-11-07] MEDS ORDERED: AMIODARONE HCL200 MG PO (17:51)
[2016-11-07] MEDS ORDERED: FLOMAX0.4 M1 PO (17:53)
[2016-11-07] MEDS ORDERED: IMDUR-ER60 M1 PO (17:57)
[2016-11-07] MEDS ORDERED: VITAMIN D1000 UNIT PO (17:58)
[2016-11-07] MEDS ORDERED: FOLIC ACID1 MG PO (17:58)
[2016-11-07] MEDS ORDERED: LOPRESSOR PO (18:09)
[2016-11-07] MEDS ORDERED: AMAZING BUTT CREAM TOP (20:27)
== END 2016-11-07 20:55 | disposition home or self-care (01) | DRG 853 ==
LOC: CFTX 13:31 → CED 13:31 → CICCU3 15:50 → CEDOF 15:50 → CED 16:37 → CEDOF 16:37 → C3A PCU 17:42 → CICCU3 10-20 02:38 → C5B 11-01 20:22
PROVIDERS: Emergency Medicine; Family Medicine; Internal Medicine; Internal Medicine Cardiovascular Disease; Internal Medicine Hematology; Internal Medicine Hematology & Oncology; Internal Medicine Nephrology; Internal Medicine Pulmonary Disease; Nurse Practitioner; Radiology Diagnostic Radiology; Student in an Organized Health Care Education/Training Program
PROC: 30233N1 Transfusion of Nonautologous Red Blood Cells into Peripheral Vein, Percutaneous Approach (ICD-10-PCS; 2016-10-21)
PROC: 30233N1 Transfusion of Nonautologous Red Blood Cells into Peripheral Vein, Percutaneous Approach (ICD-10-PCS; 2016-10-21)
PROC: B24BYZZ Ultrasonography of Heart with Aorta using Other Contrast (ICD-10-PCS; 2016-10-21)
PROC: 0BH17EZ Insertion of Endotracheal Airway into Trachea, Via Natural or Artificial Opening (ICD-10-PCS; 2016-10-22)
PROC: 0B9C8ZX Drainage of Right Upper Lung Lobe, Via Natural or Artificial Opening Endoscopic, Diagnostic (ICD-10-PCS; principal; 2016-10-22 10:55)
PROC: 5A1955Z Respiratory Ventilation, Greater than 96 Consecutive Hours (ICD-10-PCS; 2016-10-22 10:55)
PROC: 0B9D8ZX Drainage of Right Middle Lung Lobe, Via Natural or Artificial Opening Endoscopic, Diagnostic (ICD-10-PCS; 2016-10-22 10:55)
PROC: 02H633Z Insertion of Infusion Device into Right Atrium, Percutaneous Approach (ICD-10-PCS; 2016-10-23)
PROC: B214YZZ Fluoroscopy of Right Heart using Other Contrast (ICD-10-PCS; 2016-10-23)
PROC: B244YZZ Ultrasonography of Right Heart using Other Contrast (ICD-10-PCS; 2016-10-23)
PROC: 5A1D60Z (ICD-10-PCS; 2016-10-23)
PROC: 05HM33Z Insertion of Infusion Device into Right Internal Jugular Vein, Percutaneous Approach (ICD-10-PCS; 2016-11-06)
PROC: B513YZA Fluoroscopy of Right Jugular Veins using Other Contrast, Guidance (ICD-10-PCS; 2016-11-06)
PROC: B543ZZA Ultrasonography of Right Jugular Veins, Guidance (ICD-10-PCS; 2016-11-06)
DX: A41.9 Sepsis, unspecified organism (principal); J18.9 Pneumonia, unspecified organism; I21.4 Non-ST elevation (NSTEMI) myocardial infarction; J96.21 Acute and chronic respiratory failure with hypoxia; I47.2 Ventricular tachycardia; I13.0 Hypertensive heart and chronic kidney disease with heart failure and stage 1 through stage 4 chronic kidney disease, or unspecified chronic kidney disease; E11.22 Type 2 diabetes mellitus with diabetic chronic kidney disease; N18.3 Chronic kidney disease, stage 3 (moderate); D62 Acute posthemorrhagic anemia; I49.01 Ventricular fibrillation; K92.2 Gastrointestinal hemorrhage, unspecified; I82.611 Acute embolism and thrombosis of superficial veins of right upper extremity; J44.0 Chronic obstructive pulmonary disease with (acute) lower respiratory infection; J44.1 Chronic obstructive pulmonary disease with (acute) exacerbation; E44.0 Moderate protein-calorie malnutrition; I50.9 Heart failure, unspecified; Z99.81 Dependence on supplemental oxygen; I25.10 Atherosclerotic heart disease of native coronary artery without angina pectoris; E78.5 Hyperlipidemia, unspecified; I73.9 Peripheral vascular disease, unspecified; G47.33 Obstructive sleep apnea (adult) (pediatric); Z95.1 Presence of aortocoronary bypass graft; H40.9 Unspecified glaucoma; Z85.118 Personal history of other malignant neoplasm of bronchus and lung; Z79.82 Long term (current) use of aspirin; K27.9 Peptic ulcer, site unspecified, unspecified as acute or chronic, without hemorrhage or perforation; Z87.891 Personal history of nicotine dependence; D50.0 Iron deficiency anemia secondary to blood loss (chronic); Z91.19 Patient's noncompliance with other medical treatment and regimen; I48.0 Paroxysmal atrial fibrillation; E66.9 Obesity, unspecified; Z68.29 Body mass index [BMI] 29.0-29.9, adult; R33.9 Retention of urine, unspecified
CPT/HCPCS: 36415; 36600; 71010; 74000; 76770; 76937; 77001; 80048; 80053; 80069; 80074; 80076; 80202; 81003; 82308; 82310; 82550; 82553; 82570; 82728; 82803; 82947; 83010; 83540; 83550; 83605; 83690; 83735; 83880; 83970; 84100; 84156; 84300; 84484; 85014; 85018; 85025; 85027; 85044; 85610; 85730; 86850; 86900; 86901; 86923; 87040; 87070; 87086; 87102; 87106; 87116; 87205; 87206; 87252; 87254; 87278; 87340; 87449; 87493; 87899; 88108; 88305; 88312; 89051; 92610; 93005; 93306; 94002; 94003; 94640; 94660; 94760; 94761; 96374; 96375; 97110; 97116; 97163; 97167; 97530; 97535; 99285; C1750; C1894; C9113; G0365; G8978-GP; G8979-GP; G8987-GO; G8988-GO; G8996-GN; G8997-GN; G8998-GN; J0171; J0282; J0360; J0456; J0690; J0885; J1642; J1644; J1650; J1756; J1815; J1940; J2060; J2150; J2250; J2543; J2916; J2920; J2930; J3010; J3260; J3370; J3420; J3490; P9016; Q4081

== ENCOUNTER → 2016-11-13 | Outpatient (CLI) | payer OTHER ==
[~2016-11-13] MED LIST changes: +ALTOPREV20 MG PO; +AMAZING BUTT CREAM TOP; +AMIODARONE HCL200 MG PO; +AVAPRO PO; +HYDROCODON-ACE1 EAC7 PO; +IMDUR-ER60 M1 PO; +NITROSTAT0.4 MG PO; +TIMOPTIC 0.5% OP5 M1 OU; +TRIGLIDE160 M1 PO; +VITAMIN D1000 UNIT PO
[2016-11-13 14:00] LABS: BUN/CREATININE RATIO 6.12; CALCIUM SERUM 8.2 mg/dL (8.4-10.2); CREATININE SERUM 3.1 mg/dL (0.6-1.4); GLOM FILT RATE Estimated 18.4 mL/min (>60); POTASSIUM 4.2 mmol/L (3.5-5.1)
== END | disposition home or self-care (01) ==
LOC: SLAB 13:01
PROVIDERS: Internal Medicine Nephrology
DX: N28.9 Disorder of kidney and ureter, unspecified (principal)
CPT/HCPCS: 36415; 80048